=== PATIENT | female | born 1975 | race Caucasian/White ===

== ENCOUNTER 2016-02-19 16:19 | Day surgery (SDC) | payer OTHER ==
[2016-02-19] MEDS ORDERED: EPINEPHrine/PF 1 MG/1 ML (1:1,000) AMPULE SQ PRN (16:35)
[2016-02-19] MEDS ORDERED: OMALIZUMAB 150 MG/VIAL ML SQ ONE (17:00)
[2016-02-19 18:25] VITALS: BP 122/70; PULSE 72; TEMP 98.2
== END 2016-02-19 18:26 | disposition home or self-care (01) ==
LOC: JINFUSION 16:19 → J7W 16:20 → JINFUSION 18:26
PROVIDERS: ATTEND Internal Medicine
PROC: 3E013GC Introduction of Other Therapeutic Substance into Subcutaneous Tissue, Percutaneous Approach (ICD-10-PCS; principal; 2016-02-19)
DX: J45.50 Severe persistent asthma, uncomplicated (principal)
CPT/HCPCS: 96372; J2357

== ENCOUNTER 2016-03-17 16:15 | Day surgery (SDC) | payer OTHER ==
[2016-03-17] MEDS ORDERED: EPINEPHrine/PF 1 MG/1 ML (1:1,000) AMPULE SQ PRN (16:41)
[2016-03-17] MEDS ORDERED: OMALIZUMAB 150 MG/VIAL ML SQ ONE (16:45)
[2016-03-17 20:11] VITALS: BMI 35.9
[2016-03-17 20:12] VITALS: BP 131/86; PULSE 78; TEMP 97.4
== END 2016-03-17 18:28 | disposition home or self-care (01) ==
LOC: JINFUSION 16:15 → J7W 16:17 → JINFUSION 18:28
PROVIDERS: ATTEND Internal Medicine
PROC: 3E013GC Introduction of Other Therapeutic Substance into Subcutaneous Tissue, Percutaneous Approach (ICD-10-PCS; principal; 2016-03-17)
DX: J45.50 Severe persistent asthma, uncomplicated (principal)
CPT/HCPCS: 96372; J2357

== ENCOUNTER 2016-04-18 15:36 | Day surgery (SDC) | payer OTHER ==
[2016-04-18] MEDS ORDERED: EPINEPHrine/PF 1 MG/1 ML (1:1,000) AMPULE SQ PRN (16:32)
[2016-04-18] MEDS ORDERED: OMALIZUMAB 150 MG/VIAL ML SQ ONE (16:40)
[2016-04-18 17:31] VITALS: TEMP 98.6
[2016-04-18 18:18] VITALS: BP 141/74; PULSE 98
== END 2016-04-18 19:12 | disposition home or self-care (01) ==
LOC: JINFUSION 15:36 → J7W 15:39 → JINFUSION 19:12
PROVIDERS: ATTEND Internal Medicine
PROC: 3E013GC Introduction of Other Therapeutic Substance into Subcutaneous Tissue, Percutaneous Approach (ICD-10-PCS; principal; 2016-04-18)
DX: J45.50 Severe persistent asthma, uncomplicated (principal)
CPT/HCPCS: 96372; J2357

== ENCOUNTER 2016-06-11 16:07 | Day surgery (SDC) | payer OTHER ==
[~2016-06-11 16:07] MED LIST: EPINEPHrine/PF 1 MG/1 ML (1:1,000) AMPULE SQ PRN; OMALIZUMAB 150 MG/VIAL ML SQ ONE
[2016-06-11] MEDS ORDERED: EPINEPHrine/PF 1 MG/1 ML (1:1,000) AMPULE SQ PRN (16:28)
[2016-06-11] MEDS ORDERED: OMALIZUMAB 150 MG/VIAL ML SQ ONE (16:30)
[2016-06-11 16:56] VITALS: BP 138/79; PULSE 76; TEMP 98
== END 2016-06-11 18:47 | disposition home or self-care (01) ==
LOC: JINFUSION 16:07 → J7W 16:08 → JINFUSION 18:47
PROVIDERS: ATTEND Internal Medicine
PROC: 3E013GC Introduction of Other Therapeutic Substance into Subcutaneous Tissue, Percutaneous Approach (ICD-10-PCS; principal; 2016-06-11)
DX: J45.50 Severe persistent asthma, uncomplicated (principal)
CPT/HCPCS: 96372; J2357

== ENCOUNTER 2016-07-11 15:24 | Day surgery (SDC) | payer OTHER ==
[2016-07-11] MEDS ORDERED: EPINEPHrine/PF 1 MG/1 ML (1:1,000) AMPULE SQ PRN (15:48)
[2016-07-11] MEDS ORDERED: OMALIZUMAB 150 MG/VIAL ML SQ ONE (16:30)
[2016-07-11 18:38] VITALS: BP 137/85; PULSE 79; TEMP 98.6
== END 2016-07-11 18:37 | disposition home or self-care (01) ==
LOC: JINFUSION 15:24 → J7W 15:40 → JINFUSION 18:37
PROVIDERS: ATTEND Internal Medicine
PROC: 3E013GC Introduction of Other Therapeutic Substance into Subcutaneous Tissue, Percutaneous Approach (ICD-10-PCS; principal; 2016-07-11)
DX: J45.50 Severe persistent asthma, uncomplicated (principal)
CPT/HCPCS: 96372; J2357

== ENCOUNTER 2016-08-27 12:12 | Inpatient (IN) | payer OTHER ==
[2016-08-27] MEDS ORDERED: ALBUTEROL SO4 2.5/IPRATROPIUM 0.5 INH SOL 3 ML VIAL.NEB. NEB ONE ×3 (12:32→13:10)
--- NOTE | 2016-08-27 13:01 | PDOC ---
History of Present Illness - General History Source: Patient Exam Limitations: No Limitations - History of Present Illness Initial Comments: 08/27/16 13:09 The patient is a 40 year old female, with a significant past medical history of asthma, who presents to the emergency department with cough, congestion, chest tightness and SOB for about 1 day. The patient reports having chronic asthma complications. She reports humidity often triggers her asthma. She reports having multiple hospitalizations for her asthma, last admission July 2015. She denies recent fevers, chills, headache or dizziness. She denies recent nausea, vomit, diarrhea or constipation. She denies recent dysuria, frequency, urgency or hematuria. Allergies: NKA Past surgical history: None reported. Social history: Nonsmoker. Denies EtOH use and recreational drug use. Primary Care Physician: <Quique Fletcher - Last Filed: 08/27/16 13:10> - General History Source: Patient Exam Limitations: No Limitations <Hattie Mcmillna - Last Filed: 08/27/16 15:35> - General Chief Complaint: Asthma Stated Complaint: SOB (ASTHMA) Time Seen by Provider: 08/27/16 12:28 Past History <Quique Fletcher - Last Filed: 08/27/16 13:10> - Past Medical History Anemia: No Asthma: Yes Cancer: No Cardiac Disorders: No CVA: No COPD: No CHF: No Dementia: No Diabetes: No GI Disorders: No Disorders: No HTN: No Hypercholesterolemia: Yes Liver Disease: No Seizures: No Thyroid Disease: No - Surgical History Abdominal Surgery: No Appendectomy: Yes Cardiac Surgery: No Cholecystectomy: No Lung Surgery: No Neurologic Surgery: No Orthopedic Surgery: No - Psycho/Social/Smoking Cessation Hx Anxiety: No Suicidal Ideation: No Smoking Status: Yes Smoking History: Never smoked Have you smoked in the past 12 months: Yes Number of Cigarettes Smoked Daily: 1 If you are a former smoker, when did you quit?: 07/2013 Cigars Per Day: 1 'Breaking Loose' booklet given: 07/28/13 Hx Alcohol Use: No Drug/Substance Use Hx: No Substance Use Type: None Hx Substance Use Treatment: No <Hattie Mcmillan - Last Filed: 08/27/16 15:35> - Past Medical History Allergies/Adverse Reactions: Allergies Allergy/AdvReac Type Severity Reaction Status Date / Time shellfish derived Allergy SWELLING, Verified 08/27/16 12:17 DIFFICULTY BREATHING, ITCHING iv contrast Allergy Uncoded 08/27/16 12:17 Home Medications: Ambulatory Orders Budesonide/Formeterol Fumarate [SYMBICORT 160/4.5mcg -] 1 puff IH BID #1 inhaler 02/17/15 Montelukast Na [Singulair -] 10 mg PO HS #30 tablet 02/17/15 Albuterol 0.083% Nebulizer Kelly [Ventolin 0.083% Nebulizer Soln -] 1 neb NEB QID PRN 02/26/15 Albuterol Sulfate Inhaler - [Ventolin Hfa Inhaler -] 2 inh PO Q4H PRN 07/20/15 Tiotropium [place] [Spiriva] 1 inh PO DAILY 07/20/15 Omalizumab [Xolair -] 150 mg SQ Q30D 08/27/16 Review of Systems - Review of Systems Able to Perform ROS?: Yes Comments:: 08/27/16 13:09 GENERAL/CONSTITUTIONAL: No: fever, chills, weakness, loss of appetite. HEAD, EYES, EARS, NOSE AND THROAT: No: change in vision, ear pain, discharge, sore throat, throat swelling. CARDIOVASCULAR: +chest tightness. No: chest pain, lightheadedness, palpitations , syncope RESPIRATORY: +: cough, shortness of breath, No: hemoptysis, stridor. GASTROINTESTINAL: No: nausea, vomiting, diarrhea, abdominal cramping, rectal bleeding, constipation. GENITOURINARY: No: dysuria, hematuria, frequency, urgency, flank pain. MUSCULOSKELETAL: No: back pain, neck pain, joint pain, muscle swelling or pain SKIN : No: lesions, pallor, rash or easy bruising. NEUROLOGIC: No: headache, vertigo, paresthesias, weakness ENDOCRINE: No: unexplained weight gain or loss HEMATOLOGIC/LYMPHATIC: No: anemia, easy bleeding, swelling nodes. <Quique Fletcher - Last Filed: 08/27/16 13:10> *Physical Exam - Vital Signs Last Vital Signs Temp Pulse Resp BP Pulse Ox 98.0 F 85 24 137/71 100 08/27/16 12:14 08/27/16 12:14 08/27/16 12:14 08/27/16 12:14 08/27/16 12:14 - Physical Exam Comments: 08/27/16 13:10 GENERAL: The patient is in no acute distress. HEAD: Normal with no signs of trauma. EYES: PERRLA, EOMI, sclera anicteric, conjunctiva clear. ENT: Ears normal, nares patent, oropharynx clear without exudates. Moist mucous membranes. NECK: Normal range of motion, supple without lymphadenopathy, JVD, or masses. LUNGS: Expiratory wheezes in all lung mir. HEART: Regular rate and rhythm, normal S1 and S2 without murmur, rub or gallop. ABDOMEN: Soft, nontender, normoactive bowel sounds. No guarding, no rebound. No masses palpable. EXTREMITIES: Normal range of motion, no edema. No clubbing or cyanosis. No erythema, or tenderness. NEUROLOGICAL: Cranial nerves II through XII grossly intact. Normal speech. No focal neurological deficits. MUSCULOSKELETAL: Back non-tender to palpation, no CVA tenderness SKIN: Warm, Dry, normal turgor, no rashes or lesions noted. <Quique Fletcher - Last Filed: 08/27/16 13:10> - Vital Signs Last Vital Signs Temp Pulse Resp BP Pulse Ox 98.0 F 85 24 137/71 100 08/27/16 12:14 08/27/16 12:14 08/27/16 12:14 08/27/16 12:14 08/27/16 12:14 <Hattie Mcmillan - Last Filed: 08/27/16 15:35> ED Treatment Course - ADDITIONAL ORDERS Additional order review: Laboratory Results 08/27/16 12:34 Urine HCG, Qual Negative - Medications Given in the ED: ED Medications Discontinued Medications Generic Name Dose Route Start Last Admin Trade Name Freq PRN Reason Stop Dose Admin Albuterol/Ipratropium 1 amp 08/27/16 12:32 08/27/16 12:32 Duoneb - NEB 08/27/16 12:33 1 amp NOW ONE Administration Albuterol/Ipratropium 1 amp 08/27/16 12:53 08/27/16 12:53 Duoneb - NEB 08/27/16 12:54 1 amp NOW ONE Administration <Quique Fletcher - Last Filed: 08/27/16 13:10> - LABORATORY CBC & Chemistry Diagram: 08/27/16 13:40 08/27/16 13:40 - ADDITIONAL ORDERS Additional order review: Laboratory Results 08/27/16 12:34 Urine HCG, Qual Negative - Medications Given in the ED: ED Medications Discontinued Medications Generic Name Dose Route Start Last Admin Trade Name Justin PRN Reason Stop Dose Admin Albuterol/Ipratropium 1 amp 08/27/16 12:32 08/27/16 12:32 Duoneb - NEB 08/27/16 12:33 1 amp NOW ONE Administration Albuterol/Ipratropium 1 amp 08/27/16 12:53 08/27/16 12:53 Duoneb - NEB 08/27/16 12:54 1 amp NOW ONE Administration <Hattie Mcmillan - Last Filed: 08/27/16 15:35> Medical Decision Making - Medical Decision Making 08/27/16 12:57 A portion of this note was documented by scribe services under my direction. I have reviewed the details of the note, within reason, and agree with the documentation with the following case summary and management plan written by me. Nursing documentation reviewed and incorporated into medical decision making 08/27/16 14:01 This is a 40 yo F with a history of chronic persistent asthma, no prior intubations, previously had ER visits/admissions every 2 months She has recently been managed by Dr Prado, started on a cocktail of Advair, Spiriva , Xolair She was well controlled on this medications She states that she was taking a lot of medications and therefore did not want to keep taking them She discontinued her medications She has noticed that she has been increasingly short of breath for the past 2 days The humidity is a trigger for her Prior to today, she has had NO asthma exacerbations in the past 13 months 08/27/16 14:02 Pt was given 3 treatments prior to my evaluation She has now, expiratory wheezing through out all lung mir She states she feels a bit better but is still very tight 08/27/16 14:05 CXR: nml 08/27/16 15:17 Laboratory Tests 08/27/16 08/27/16 08/27/16 12:34 13:40 13:40 WBC 8.8 Hgb 13.8 Hct 40.4 Plt Count 310 BUN 11 D Creatinine 0.8 Urine HCG, Qual Negative 08/27/16 15:18 Call placed to Hospitalist Will place on observation Clinical impression: severe Asthma exacerbation <Hattie Mcmillan - Last Filed: 08/27/16 15:35> *DC/Admit/Observation/Transfer - Attestations Scribe Attestion: 08/27/16 13:10 Documentation prepared by Quique Fletcher, acting as district medical examiner for Hattie Mcmillan MD. <Quique Fletcher - Last Filed: 08/27/16 13:10> - Discharge Dispostion Admit: Yes <Hattie Mcmillan - Last Filed: 08/27/16 15:35> Diagnosis at time of Disposition: Asthma exacerbation Qualifiers: Asthma severity: severe persistent Qualified Code(s): J45.51 - Severe persistent asthma with (acute) exacerbation - Discharge Dispostion Condition at time of disposition: Stable - Referrals Referrals: Rico Maciel MD [Primary Care Provider] -
[2016-08-27] MEDS ORDERED: methylPREDNISolone NA SUCC 125 MG/2 ML VIAL IVPB ONE (13:10)
[2016-08-27] MEDS ORDERED: MAGNESIUM SULF 50% (8.12 MEQ/2 ML-1 GM VIAL) IVPB ONE (13:11)
[2016-08-27] MEDS ORDERED: guaiFENesin/CODEINE 10 ML UNIT-DOSE CUPS PO ONE (13:42)
[2016-08-27 13:43] LABS: BASOPHIL 0.7 % (0-2.0); MCH 30.7 pg (25.7-33.7); MCHC 34.1 g/dl (32.0-36.0); MEAN CELL VOLUME 90.1 fl (80-96); MEAN PLT VOLUME 7.9 fl (7.5-11.1); NEUTROPHILS 60.1 % (42.8-82.8); PLATELET COUNT 310 K/MM3 (134-434); WHITE BLOOD COUNT 8.8 K/mm3 (4.0-10.0)
[2016-08-27] MEDS ORDERED: guaiFENesin/CODEINE 5 ML UNIT-DOSE CUPS PO ONE (13:43)
[2016-08-27 14:15] LABS: ALBUMIN 3.4 g/dl (3.4-5.0); ANION GAP 10 (8-16); BILIRUBIN,TOTAL 0.3 mg/dL (0.2-1.0); CALCIUM 8.8 mg/dL (8.5-10.1); CO2 25 mmol/L (21-32); CREATININE 0.8 mg/dL (0.55-1.02); GLUCOSE,RANDOM 89 mg/dL (74-106); SGOT/AST 13 U/L (15-37); SGPT/ALT 20 U/L (12-78); TOT PROT 6.8 g/dl (6.4-8.2)
[2016-08-27 14:16] LABS: ALK PHOS 71 U/L (45-117)
--- NOTE | 2016-08-27 15:25 | HP ---
CHIEF COMPLAINT: "I have trouble breathing" PCP: Dr Prado HISTORY OF PRESENT ILLNESS: This is a 39-year-old female with a history of asthma (multiple admissions, no history of intubations, followed by Dr. Prado as outpatient) who was last admitted here a year ago for asthma exacerbation, who presents due to SOB, cough, congestion and chest tightness x 2d. Patient states that humidity often triggers her asthma. She did well for a year on her medication regimen but has been noncompliant with it for the past month. She denies recent f/c, h/a, hemoptysis, dizziness, n/v, diarrhea, constipation, dysuria, frequency, urgency or hematuria. ER course was notable for: (1)labs (2)cxr WNL (3)duoneb, robitussin, mag, medrol 125 IV Recent Travel: denies PAST MEDICAL HISTORY: as above PAST SURGICAL HISTORY: appendectomy, c section Social History: lives at home with children Smoking: denies Alcohol: denies Drugs: denies Family History: asthma in grandmother, children Allergies shellfish derived Allergy (Verified 08/27/16 12:17) SWELLING, DIFFICULTY BREATHING, ITCHING iv contrast Allergy (Uncoded 08/27/16 12:17) Magnesioum (pruritus) HOME MEDICATIONS: Home Medications Medication Instructions Recorded Budesonide/Formeterol Fumarate 1 puff IH BID #1 inhaler 02/17/15 [SYMBICORT 160/4.5mcg -] Montelukast Na [Singulair -] 10 mg PO HS #30 tablet 02/17/15 Albuterol 0.083% Nebulizer Kelly 1 neb NEB QID PRN 02/26/15 [Ventolin 0.083% Nebulizer Soln -] Albuterol Sulfate Inhaler - 2 inh PO Q4H PRN 07/20/15 [Ventolin Hfa Inhaler -] Tiotropium [place] [Spiriva] 1 inh PO DAILY 07/20/15 Omalizumab [Xolair -] 150 mg SQ Q30D 08/27/16 REVIEW OF SYSTEMS CONSTITUTIONAL: Absent: fever, chills HEENT: Absent: rhinorrhea, nasal congestion, throat pain CARDIOVASCULAR: Absent: chest pain, syncope, palpitations, peripheral edema RESPIRATORY: Absent: orthopnea, stridor, hemoptysis GASTROINTESTINAL: Absent: abdominal pain, abdominal distension, nausea, vomiting, diarrhea, constipation GENITOURINARY: Absent: dysuria MUSCULOSKELETAL: Absent: back pain, neck pain SKIN: Absent: pallor HEMATOLOGIC/IMMUNOLOGIC: Absent: frequent infections ENDOCRINE: Absent: heat intolerance, cold intolerance NEUROLOGIC: Absent: headache, focal weakness or paresthesias PSYCHIATRIC: Absent: anxiety PHYSICAL EXAMINATION Vital Signs - 24 hr 08/27/16 12:14 Temperature 98.0 F Pulse Rate 85 Respiratory 24 Rate Blood Pressure 137/71 O2 Sat by Pulse 100 Oximetry (%) GENERAL: Awake, alert, and fully oriented, in no acute distress. HEAD: Normal with no signs of trauma. EYES: Pupils equal, round and reactive to light, extraocular movements intact, sclera anicteric, conjunctiva clear. No lid lag. EARS, NOSE, THROAT: Moist mucous membranes. NECK: supple without JVD LUNGS: diffusely severely reduced breath sounds, a little bit of wheezing b/l HEART: Regular rate and rhythm, normal S1 and S2 ABDOMEN: Soft, nontender, not distended, normoactive bowel sounds, no guarding, no rebound, no masses. No hepatomegaly or splenomegaly. MUSCULOSKELETAL: No CVA tenderness. UPPER EXTREMITIES: 2+ pulses, warm, well-perfused. No cyanosis. No clubbing. No peripheral edema. LOWER EXTREMITIES: 2+ pulses, warm, well-perfused. No calf tenderness. No peripheral edema. NEUROLOGICAL: Cranial nerves II-XII intact. Normal speech. strength in extremities 5/5, sensation intact in face and extremities PSYCHIATRIC: Cooperative. Good eye contact. Appropriate mood and affect. SKIN: Warm, dry Laboratory Results - last 24 hr 08/27/16 08/27/16 08/27/16 12:34 13:40 13:40 WBC 8.8 RBC 4.48 Hgb 13.8 Hct 40.4 MCV 90.1 MCH 30.7 MCHC 34.1 RDW 14.0 Plt Count 310 MPV 7.9 Neutrophils % 60.1 D Lymphocytes % 31.5 D Monocytes % 6.7 D Eosinophils % 1.0 D Basophils % 0.7 Sodium 141 Potassium 4.3 Chloride 106 Carbon Dioxide 25 Anion Gap 10 BUN 11 D Creatinine 0.8 Creat Clearance w eGFR > 60 Random Glucose 89 D Calcium 8.8 Magnesium Total Bilirubin 0.3 D AST 13 L ALT 20 Alkaline Phosphatase 71 Total Protein 6.8 Albumin 3.4 Urine HCG, Qual Negative 08/27/16 13:40 WBC RBC Hgb Hct MCV MCH MCHC RDW Plt Count MPV Neutrophils % Lymphocytes % Monocytes % Eosinophils % Basophils % Sodium Potassium Chloride Carbon Dioxide Anion Gap BUN Creatinine Creat Clearance w eGFR Random Glucose Calcium Magnesium 2.1 Total Bilirubin AST ALT Alkaline Phosphatase Total Protein Albumin Urine HCG, Qual ASSESSMENT/PLAN: This is a 39-year-old female with a history of asthma (multiple admissions, no history of intubations, followed by Dr. Prado as outpatient) who was last admitted here a year ago for asthma exacerbation, who presents due to SOB, cough, congestion and chest tightness x 1d. Acute asthma exacerbation -triggered by humidity, no evidence of infectious process -100% O2 on RA -s/p medrol 125 in ED; start medrol 80q8 and taper -Albuterol NEB QID PRN -Duoneb QIDR TODD -Symbicort 160/4.5mcg BID TODD -Singulair 10 mg PO HS TODD -patient due for Zolair injection -Dr Prado consult -monitor peak flow -2L NC PRN for comfort FEN no IVF lytes stable regular diet PPX: diet and early ambulation Dispo: Obs in [facility] Problem List - Problem (1) Asthma exacerbation Code(s): J45.901 - UNSPECIFIED ASTHMA WITH (ACUTE) EXACERBATION Qualifiers: Asthma severity: severe persistent Qualified Code(s): J45.51 - Severe persistent asthma with (acute) exacerbation (2) Shortness of breath Code(s): R06.02 - SHORTNESS OF BREATH Visit type - Emergency Visit Emergency Visit: Yes ED Registration Date: 08/27/16 Care time: The patient presented to the Emergency Department on the above date and was hospitalized for further evaluation of their emergent condition. - New Patient This patient is new to me today: Yes Date on this admission: 08/27/16 - Critical Care Critical Care patient: No
--- NOTE | 2016-08-27 16:15 | HP ---
CHIEF COMPLAINT: shortness of breath and chest tightness x 2 days PCP: Rico Maciel HISTORY OF PRESENT ILLNESS: This is a 40 year old F with PMH asthma (diagnosed in 2002), who presented to the ED for SOB and chest tightness for 2 days. Pt states that it is hard for her to get air in, and that her symptoms are consistent with past asthma exacerbations. She also currently has a dry cough. Her triggers are humidity and cold weather. As per pt, she usually follows with Dr. Prado and takes: Zolair 1x/month, Spiriva, Symbicort, Singulair, and an albuterol inhaler, but has not been compliant over the last month since she has been busy with her children. Her baseline peak flow is 350. She has never been intubated. Denies fever, chills, dysuria, recent URI, sick contacts, or any travel history. ER course was notable for: (1) Solumedrol 125mg IVPB once (2) Duoneb 2 amps total Neb (3) Robitussin 5ml PO (4) CXR- WNL Recent Travel: None PAST MEDICAL HISTORY: asthma (diagnosed in 2002) PAST SURGICAL HISTORY: 3 sections, appendectomy Social History: Smoking: denies Alcohol: denies Drugs: denies Family History: all three children have asthma Allergies shellfish derived Allergy (Verified 08/27/16 12:17) SWELLING, DIFFICULTY BREATHING, ITCHING iv contrast Allergy (Uncoded 08/27/16 12:17) magnesium reaction- itching HOME MEDICATIONS: Home Medications Medication Instructions Recorded Budesonide/Formeterol Fumarate 1 puff IH BID #1 inhaler 02/17/15 [SYMBICORT 160/4.5mcg -] Montelukast Na [Singulair -] 10 mg PO HS #30 tablet 02/17/15 Albuterol 0.083% Nebulizer [place] 1 neb NEB QID PRN 02/26/15 [Ventolin 0.083% Nebulizer Soln -] Albuterol Sulfate Inhaler - 2 inh PO Q4H PRN 07/20/15 [Ventolin Hfa Inhaler -] Tiotropium [place] [Spiriva] 1 inh PO DAILY 07/20/15 Omalizumab [Xolair -] 0 mg SQ Q30D 08/27/16 REVIEW OF SYSTEMS CONSTITUTIONAL: Absent: fever, chills, diaphoresis, generalized weakness, malaise, loss of appetite, weight change HEENT: Absent: rhinorrhea, nasal congestion, throat pain, throat swelling, difficulty swallowing, mouth swelling, ear pain, eye pain, visual changes CARDIOVASCULAR: Absent: chest pain, syncope, palpitations, irregular heart rate, lightheadedness , peripheral edema RESPIRATORY: +dry cough, +SOB, +wheezing, +chest tightness Absent: cough, shortness of breath, dyspnea with exertion, orthopnea, wheezing, stridor, hemoptysis GASTROINTESTINAL: Absent: abdominal pain, abdominal distension, nausea, vomiting, diarrhea, constipation, melena, hematochezia GENITOURINARY: Absent: dysuria, frequency, urgency, hesitancy, hematuria, flank pain, genital pain MUSCULOSKELETAL: Absent: myalgia, arthralgia, joint swelling, back pain, neck pain SKIN: Absent: rash, itching, pallor HEMATOLOGIC/IMMUNOLOGIC: Absent: easy bleeding, easy bruising, lymphadenopathy, frequent infections ENDOCRINE: Absent: unexplained weight gain, unexplained weight loss, heat intolerance, cold intolerance NEUROLOGIC: Absent: headache, focal weakness or paresthesias, dizziness, unsteady gait, seizure, mental status changes, bladder or bowel incontinence PSYCHIATRIC: Absent: anxiety, depression, suicidal or homicidal ideation, hallucinations. PHYSICAL EXAMINATION GENERAL: Drowsy (had just received benadryl after allergic reaction to Mg) female, lying down, in mild distress HEAD: Normal with no signs of trauma. EYES: Pupils equal, round and reactive to light, extraocular movements intact, sclera anicteric, conjunctiva clear. EARS, NOSE, THROAT: oropharynx clear without exudates. Moist mucous membranes. NECK: Normal range of motion, supple without lymphadenopathy, JVD LUNGS: mild wheezing heard b/l posteriorly (had already received solumedrol) HEART: Regular rate and rhythm, normal S1 and S2 without murmur, rub or gallop. ABDOMEN: Soft, nontender, not distended, normoactive bowel sounds, no guarding, no rebound, no masses. MUSCULOSKELETAL: Normal range of motion at all joints. No bony deformities or tenderness. No CVA tenderness. UPPER EXTREMITIES: 2+ radial pulses, warm, well-perfused. No cyanosis. No clubbing. No peripheral edema. LOWER EXTREMITIES: 2+ posterior tibial pulses, warm, well-perfused. No calf tenderness. No peripheral edema. NEUROLOGICAL: Cranial nerves II-XII intact ASSESSMENT/PLAN: This is a 40 year old F with PMH asthma (diagnosed in 2002), who presented to the ED for SOB and chest tightness for 2 days. Pt admitted to obs for acute asthma exacerbation. 1. Acute asthma exacerbation -triggered by humidity -Oxygen saturation: 100% on room air - Begin solumedrol 80mg q8 and taper to oral tomorrow -Albuterol NEB QID PRN -Duoneb QIDR TODD -Symbicort 160/4.5mcg BID TODD -Singulair 10 mg PO HS TODD -patient due for Zolair injection (receives 1x/month) -Consult Dr. Prado -Monitor peak flow (baseline 350) -2L NC PRN 2. DVT prophylaxis -Early ambulation FEN -no fluids needed -BMP- WNL -Regular diet Disposition -Observation Visit type - Emergency Visit Emergency Visit: Yes ED Registration Date: 08/27/16 Care time: The patient presented to the Emergency Department on the above date and was hospitalized for further evaluation of their emergent condition. - New Patient This patient is new to me today: Yes Date on this admission: 08/27/16 - Critical Care Critical Care patient: No
--- NOTE | 2016-08-27 16:17 | PN ---
Teaching Attending Note Name of Resident: Sandra Tang ATTENDING PHYSICIAN STATEMENT I saw and evaluated the patient. I reviewed the resident's note and discussed the case with the resident. I agree with the resident's findings and plan as documented. SUBJECTIVE: 40 year old female with history of persistent asthma presents today c/o 2 day history of progressively worsening SOB and cough. She used nebulizers but felt no improvement . Denies fever or sick contacts. Denies chest pain PMH Asthma PSx C SEction ALL shellfish/contrast Home Medication List Medication Instructions Recorded Confirmed Type Albuterol 0.083% Nebulizer [place] 1 neb NEB QID PRN 02/26/15 08/27/16 History [Ventolin 0.083% Nebulizer Soln -] Albuterol Sulfate Inhaler - 2 inh PO Q4H PRN 07/20/15 08/27/16 History [Ventolin Hfa Inhaler -] Tiotropium [place] [Spiriva] 1 inh PO DAILY 07/20/15 08/27/16 History Omalizumab [Xolair -] 0 mg SQ Q30D 08/27/16 08/27/16 History OBJECTIVE: Vital Signs Temperature 98.0 F 08/27/16 12:14 Pulse Rate 85 08/27/16 12:14 Respiratory Rate 24 08/27/16 12:14 Blood Pressure 137/71 08/27/16 12:14 O2 Sat by Pulse Oximetry (%) 100 08/27/16 12:14 GENERAL: Awake, alert, and fully oriented, in no acute distress. HEAD: Normal with no signs of trauma. EYES: Pupils equal, round and reactive to light, extraocular movements intact, sclera anicteric, conjunctiva clear. No lid lag. EARS, NOSE, THROAT: Ears normal, nares patent, oropharynx clear without exudates. Moist mucous membranes. NECK: Normal range of motion, supple without lymphadenopathy, JVD, or masses. LUNGS:b/l wheezing HEART: Regular rate and rhythm, normal S1 and S2 without murmur, rub or gallop. ABDOMEN: Soft, nontender, not distended, normoactive bowel sounds, no guarding, no rebound, no masses. No hepatomegaly or splenomegaly. MUSCULOSKELETAL: Normal range of motion at all joints. No bony deformities or tenderness. No CVA tenderness. UPPER EXTREMITIES: 2+ pulses, warm, well-perfused. No cyanosis. No clubbing. No peripheral edema. LOWER EXTREMITIES: 2+ pulses, warm, well-perfused. No calf tenderness. No peripheral edema. NEUROLOGICAL: Cranial nerves II-XII intact. Normal speech. Normal gait. PSYCHIATRIC: Cooperative. Good eye contact. Appropriate mood and affect. SKIN: Warm, dry, normal turgor, no rashes or lesions noted, normal capillary refill CBC, BMP 08/27/16 13:40 08/27/16 13:40 CXR - no acute infiltrates ASSESSMENT AND PLAN: 1. Acute respiratory failure due to asthma exacerbation - failure of outpatient therapy with nebulizers, no significant improvement after treatment in ED - nebulizers around the clock - High dose IV steroids - O2 monitoring and supplementation - peak flow daily - pulmonary evaluation - reinstate home meds
[2016-08-27 16:43] VITALS: BMI 33.5
[2016-08-27] MEDS: ALBUTEROL SO4 2.5/IPRATROPIUM 0.5 INH SOL 3 ML VIAL.NEB. NEB SCH ×2 (18:05→23:12)
--- NOTE | 2016-08-27 18:17 | CON.PULM ---
Consult Consult Specialty:: PULMONARY Referred by:: Hospitalist Reason for Consultation:: acute asthma exacerbation - History of Present Illness Chief Complaint: shortness of breath History of Present Illness: Pt seen earlier in the day in the ER. She is a 40 year old female with h/o asthma who presents with worsening shortness of breath x 1 day. Reports chest tightness, coughing and wheezing. No fevers, chills or sweats. No chest pain or palpitations. She was formerly a severe persistent asthmatic requiring chronic steroids and theophylline but was started on Xolair last year for allergic asthma with significant improvement. Improved to the point where she self d/c'd the rest of her inhalers and medications. She did miss her July dose of Xolair due to scheduling issues. She attributes the exacerbation to the hot humid weather which is one of her triggers. No sick contacts or allergies. She has a strong family history of asthma and she still smokes occasionally. - History Source History Provided By: Patient, Medical Record Limitations to Obtaining History: No Limitations - Past Medical History Cardio/Vascular: Yes: Hyperlipdemia Pulmonary: Yes: Asthma. 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 History of Recent Travel: No Home Medications - Allergies Allergies/Adverse Reactions: Allergies Allergy/AdvReac Type Severity Reaction Status Date / Time shellfish derived Allergy SWELLING, Verified 08/27/16 12:17 DIFFICULTY BREATHING, ITCHING iv contrast Allergy Uncoded 08/27/16 12:17 - Home Medications Home Medications: Ambulatory Orders Budesonide/Formeterol Fumarate [SYMBICORT 160/4.5mcg -] 1 puff IH BID #1 inhaler 02/17/15 Montelukast Na [Singulair -] 10 mg PO HS #30 tablet 02/17/15 Albuterol 0.083% Nebulizer Kelly [Ventolin 0.083% Nebulizer Soln -] 1 neb NEB QID PRN 02/26/15 Albuterol Sulfate Inhaler - [Ventolin Hfa Inhaler -] 2 inh PO Q4H PRN 07/20/15 Tiotropium [place] [Spiriva] 1 inh PO DAILY 07/20/15 Omalizumab [Xolair -] 0 mg SQ Q30D 08/27/16 Family Disease History - Family Disease History Family Disease History: Respiratory: Son (asthma), Daughter (asthma), Other: Father (HTN) Review of Systems - Review of Systems Constitutional: reports: Fever. denies: Chills Eyes: denies: Double Vision, Recent Change in Vision HENT: denies: Nasal Congestion, Throat Pain, Toothache Neck: denies: Stiffness, Tenderness Cardiovascular: reports: Shortness of Breath. denies: Chest Pain, Edema, Palpitations Respiratory: reports: Cough, Exercise Intolerance, SOB on Exertion, Wheezing. denies: Hemoptysis Gastrointestinal: denies: Abdominal Pain, Nausea, Vomiting Genitourinary: denies: Dysuria, Hematuria Neurological: denies: Dizziness, Headache Endocrine: denies: Unexplained Weight Gain, Unexplained Weight Loss Physical Exam Vital Sings: Vital Signs Temperature 98.2 F 08/27/16 17:03 Pulse Rate 81 08/27/16 17:35 Respiratory Rate 22 08/27/16 17:03 Blood Pressure 117/43 08/27/16 17:03 O2 Sat by Pulse Oximetry (%) 98 08/27/16 17:35 Constitutional: Yes: Anxious, Mild Distress Eyes: Yes: Conjunctiva Clear, EOM Intact HENT: Yes: Atraumatic, Normocephalic Neck: Yes: Supple, Trachea Midline Cardiovascular: Yes: Regular Rate and Rhythm Respiratory: Yes: Diminished (distant breath sounds), Poor Air Entry, Rhonchi, Wheezes ...Clubbing: No Gastrointestinal: Yes: Normal Bowel Sounds, Soft. No: Tenderness Edema: No Peripheral Pulses WNL: Yes Neurological: Yes: Alert, Oriented Imaging - Results Chest X-ray: Report Reviewed, Image Reviewed (no infiltrates) Problem List - Problems (1) Asthma exacerbation Code(s): J45.901 - UNSPECIFIED ASTHMA WITH (ACUTE) EXACERBATION Qualifiers: Asthma severity: severe persistent Qualified Code(s): J45.51 - Severe persistent asthma with (acute) exacerbation Assessment/Plan Acute Asthma Exacerbation - agree with medrol - can likely taper dose in AM - duonebs standing with prn albuterol - singulair - monitor peak flow - will check office records for best peak flow - O2 as needed - if clinically improving tomorrow with improved peak flow, will consider changing steroids to PO as she has an appointment to see me on 08/29 in the office - encouraged compliance with her daily maintenance inhalers even when she is asymptomatic - instructed her to resume her monthly xolair injections as she has had a good response - DVT prophylaxis Thank you for this consult Fernando Prado MD
[2016-08-27] MEDS: methylPREDNISolone NA SUCC 125 MG/2 ML VIAL IVPB SCH (20:26)
[2016-08-27] MEDS: BUDESONIDE/FORMETEROL FUMARATE 160/4.5 mcg INHALER IH SCH (21:27)
[2016-08-27] MEDS: MONTELUKAST NA 10 MG TABLET PO SCH (21:28)
[2016-08-28] MEDS: methylPREDNISolone NA SUCC 125 MG/2 ML VIAL IVPB SCH ×3 (01:32→17:45)
[2016-08-28] MEDS: ALBUTEROL SO4 2.5/IPRATROPIUM 0.5 INH SOL 3 ML VIAL.NEB. NEB SCH ×4 (06:14→23:21)
[2016-08-28 06:59] LABS: BASOPHIL 0.1 % (0-2.0); MCH 29.7 pg (25.7-33.7); MCHC 32.9 g/dl (32.0-36.0); MEAN CELL VOLUME 90.2 fl (80-96); MEAN PLT VOLUME 7.9 fl (7.5-11.1); NEUTROPHILS 89.2 % (42.8-82.8); PLATELET COUNT 331 K/MM3 (134-434); RDW 14.2 % (11.6-15.6); WHITE BLOOD COUNT 10.9 K/mm3 (4.0-10.0)
[2016-08-28] MEDS ORDERED: ACETAMINOPHEN 325 MG TABLET (FP) PO ONE ×2 (07:30→20:43)
[2016-08-28] MEDS: BUDESONIDE/FORMETEROL FUMARATE 160/4.5 mcg INHALER IH SCH ×2 (09:45→21:37)
[2016-08-28] MEDS ORDERED: PT OWN MED DRAWER 7, Y5N ONE (09:56)
[2016-08-28] MEDS: ALBUTEROL SO4 0.083% IH SOL 2.5 MG/3 ML VIAL.NEB. NEB PRN ×2 (10:20→10:41)
--- NOTE | 2016-08-28 10:53 | PN ---
Physical Exam: SUBJECTIVE: Patient seen and examined at bedside. No acute events overnight. Patient states that her cough today is productive and that this is classic for her asthma attacks. She still has chest tightness. Peak flow 150 this morning. ( 350 baseline) Denies fever, chills, chest pain, abdominal pain. OBJECTIVE: Vital Signs Period Temp Pulse Resp BP Sys/Avelar Pulse Ox Last 24 Hr 98.2 F-98.4 F 68-81 18-22 112-130/43-73 96-100 GENERAL: The patient is awake, alert, and fully oriented HEAD: Normal with no signs of trauma. EYES: PERRL, extraocular movements intact, sclera anicteric, conjunctiva clear. NECK: Trachea midline, supple. LUNGS: wheezing, restricted breathing HEART: Regular rate and rhythm, S1, S2 without murmur, rub or gallop. ABDOMEN: Soft, nontender, nondistended, normoactive bowel sounds, no guarding, no rebound EXTREMITIES: 2+ posterior tibial pulses, warm, well-perfused, no edema. NEUROLOGICAL: Cranial nerves II through XII grossly intact. Laboratory Results - last 24 hr 08/28/16 05:45 WBC 10.9 H RBC 4.79 Hgb 14.2 Hct 43.2 MCV 90.2 MCH 29.7 MCHC 32.9 RDW 14.2 Plt Count 331 MPV 7.9 Neutrophils % 89.2 H D Lymphocytes % 10.0 D Monocytes % 0.7 L D Eosinophils % 0.0 D Basophils % 0.1 Active Medications Generic Name Dose Route Start Last Admin Trade Name Freq PRN Reason Stop Dose Admin Albuterol Sulfate 1 amp 08/27/16 16:42 08/28/16 10:20 Ventolin 0.083% Nebulizer Soln - NEB 1 amp Q4H PRN Administration SHORT OF BREATH/WHEEZING Albuterol/Ipratropium 1 amp 08/27/16 18:00 08/28/16 06:14 Duoneb - NEB 1 amp QIDR TODD Administration Budesonide/Formoterol Fumarate 1 puff 08/27/16 22:00 08/28/16 09:45 Symbicort 160/4.5mcg - IH 1 puff BID TODD Administration Methylprednisolone Sodium Succinate 80 mg 08/27/16 20:00 08/28/16 09:47 Solu-Medrol - IVPB 80 mg Q8H-IV TODD Administration Montelukast Sodium 10 mg 08/27/16 22:00 08/27/16 21:28 Singulair - PO 10 mg HS TODD Administration ASSESSMENT/PLAN: 40 year old F with PMH asthma (diagnosed in 2002), who presented to the ED for SOB and chest tightness for 2 days. Pt admitted to observation for acute asthma exacerbation. 1. Acute Asthma Exacerbation - solumedrol changed to 40mg q8 IV - duonebs standing with PRN albuterol - singulair - monitor peak flow - O2 as needed From Dr. Prado: - when ready for discharge, can discharge on symbicort 160/4.5mcg 2 puffs BID and singulair with prednisone taper starting at 60mg daily - resume Xolair as outpt - DVT prophylaxis - she will reschedule her appointment originally scheduled for tomorrow - if clinically improved with improved peak flow, will consider changing steroids to PO 2. DVT prophylaxis -early ambulation Visit type - Emergency Visit Emergency Visit: No - New Patient This patient is new to me today: No - Critical Care Critical Care patient: No
--- NOTE | 2016-08-28 11:30 | PN ---
Teaching Attending Note Name of Resident: Sandra Tang ATTENDING PHYSICIAN STATEMENT I saw and evaluated the patient. I reviewed the resident's note and discussed the case with the resident. I agree with the resident's findings and plan as documented. SUBJECTIVE:c/o SOB , productive cough OBJECTIVE: Vital Signs Temperature 98.3 F 08/28/16 06:00 Pulse Rate 74 08/28/16 06:00 Respiratory Rate 18 08/28/16 06:00 Blood Pressure 130/73 08/28/16 06:00 O2 Sat by Pulse Oximetry (%) 97 08/28/16 05:24 Lungs : Air entry improved, wheezing less , no ronchi ABD soft NT EXT no edema CBC, BMP 08/28/16 05:45 08/27/16 13:40 Peak Flow this AM is 150 / Baseline 350 ASSESSMENT AND PLAN: 1. Acute asthma exacerbation - improving however peak flow still < 50 % . Remains symptomatic - c/w solumedrol with plan to change to PO tomorrow - Peak flow daily -Nebs around the clock - O2 - monthly dose of omalizumab to be arranged as OP - GI PPX Dispo : if peak flow improves tomorrow may transition to oral steroids and plan for discharge
--- NOTE | 2016-08-28 12:13 | PN ---
Progress Note (short form) - Note Progress Note: PULMONARY Feels better but still with chest tightness, nonproductive cough. Peak flow done at bedside 150. Last Vital Signs Temp Pulse Resp BP Pulse Ox 98.3 F 74 18 130/73 97 08/28/16 06:00 08/28/16 06:00 08/28/16 06:00 08/28/16 06:00 08/28/16 05:24 Gen: less tachypneic Heart: RRR Lung: slightly improved air entry, less wheezing Abd: soft, nontender Ext: no edema CBC, BMP 08/28/16 05:45 08/27/16 13:40 Active Medications Albuterol Sulfate (Ventolin 0.083% Nebulizer Soln -) 1 amp NEB Q4H PRN PRN Reason: SHORT OF BREATH/WHEEZING Last Admin: 08/28/16 10:20 Dose: 1 amp Albuterol/Ipratropium (Duoneb -) 1 amp NEB QIDR TODD Last Admin: 08/28/16 06:14 Dose: 1 amp Budesonide/Formoterol Fumarate (Symbicort 160/4.5mcg -) 1 puff IH BID [facility] Last Admin: 08/28/16 09:45 Dose: 1 puff Methylprednisolone Sodium Succinate (Solu-Medrol -) 80 mg IVPB Q8H-IV TODD Last Admin: 08/28/16 09:47 Dose: 80 mg Montelukast Sodium (Singulair -) 10 mg PO HS [facility] Last Admin: 08/27/16 21:28 Dose: 10 mg A/P Acute Asthma Exacerbation - continue medrol, will decrease to 40mg q8h - duonebs standing with prn albuterol - singulair - monitor peak flow - O2 as needed - when ready for discharge, can discharge on symbicort 160/4.5mcg 2 puffs BID and singulair with prednisone taper starting at 60mg daily - resume xolair as outpt - DVT prophylaxis - she will reschedule her appointment originally scheduled for tomorrow Problem List - Problems (1) Asthma exacerbation Code(s): J45.901 - UNSPECIFIED ASTHMA WITH (ACUTE) EXACERBATION Qualifiers: Asthma severity: severe persistent Qualified Code(s): J45.51 - Severe persistent asthma with (acute) exacerbation
[2016-08-28] MEDS ORDERED: IBUPROFEN 400 MG TABLET (FP) PO ONE ×2 (17:20→21:09)
[2016-08-28] MEDS: guaiFENesin 200 MG/10 ML 10 ML UNIT-DOSE CUPS PO PRN (17:44)
[2016-08-28] MEDS ORDERED: diphenhydrAMINE HCL 25 MG CAPSULE (FP) PO ONE ×2 (20:42→21:12)
[2016-08-28] MEDS: MONTELUKAST NA 10 MG TABLET PO SCH (21:34)
[2016-08-29] MEDS ORDERED: IBUPROFEN 400 MG TABLET (FP) PO ONE (00:29)
[2016-08-29] MEDS ORDERED: PANTOPRAZOLE 40 MG TABLET (FP) PO ONE (00:33)
[2016-08-29] MEDS: methylPREDNISolone NA SUCC 125 MG/2 ML VIAL IVPB SCH ×2 (01:30→11:06)
[2016-08-29] MEDS: ALBUTEROL SO4 2.5/IPRATROPIUM 0.5 INH SOL 3 ML VIAL.NEB. NEB SCH ×2 (06:24→12:05)
[2016-08-29] MEDS ORDERED: IBUPROFEN 600 MG TABLET (FP) PO ONE (07:30)
[2016-08-29] MEDS ORDERED: PANTOPRAZOLE 40 MG TABLET (FP) PO SCH (10:00)
--- NOTE | 2016-08-29 10:57 | PN ---
Teaching Attending Note Name of Resident: Sandra Tang ATTENDING PHYSICIAN STATEMENT I saw and evaluated the patient. I reviewed the resident's note and discussed the case with the resident. I agree with the resident's findings and plan as documented. SUBJECTIVE: reports improvement in SOB , c/o dry non productive cough OBJECTIVE: Vital Signs Temperature 98.3 F 08/29/16 07:58 Pulse Rate 77 08/29/16 10:07 Respiratory Rate 20 08/29/16 10:07 Blood Pressure 146/84 08/29/16 10:07 O2 Sat by Pulse Oximetry (%) 98 08/28/16 22:00 HEENT PERRL no JVD, No scleral icterus RS - no wheezing no ronchi ABD soft , NT , BS are positive EXT no edema CBC, BMP 08/28/16 05:45 08/27/16 13:40 ASSESSMENT AND PLAN: 1. Acute asthma exacerbation - improving however peak flow still < 50 % . Improved. May d/c today with oral steroids taper starting 60mg daily . Re instate home meds Follow up with pulmonary D/C home
[2016-08-29] MEDS ORDERED: PT OWN MED DRAWER 7, Y5N ONE (11:04)
[2016-08-29] MEDS: BUDESONIDE/FORMETEROL FUMARATE 160/4.5 mcg INHALER IH SCH (11:06)
[2016-08-29] MEDS ORDERED: ALBUTEROL SO4 0.083% IH SOL 2.5 MG/3 ML VIAL.NEB. NEB ONE (11:29)
--- NOTE | 2016-08-29 12:01 | PN ---
Progress Note, Physician History of Present Illness: pulmonary alert,still dyspneic,+ cough - Current Medication List Current Medications: Active Medications Albuterol Sulfate (Ventolin 0.083% Nebulizer Soln -) 1 amp NEB Q4H PRN PRN Reason: SHORT OF BREATH/WHEEZING Last Admin: 08/28/16 10:20 Dose: 1 amp Albuterol Sulfate (Ventolin 0.083% Nebulizer Soln -) 1 amp NEB ONCE ONE Stop: 08/29/16 11:30 Albuterol/Ipratropium (Duoneb -) 1 amp NEB QIDR TODD Last Admin: 08/29/16 06:24 Dose: 1 amp Budesonide/Formoterol Fumarate (Symbicort 160/4.5mcg -) 1 puff IH BID TODD Last Admin: 08/29/16 11:06 Dose: 1 puff Guaifenesin (Robitussin -) 10 ml PO Q4H PRN PRN Reason: ASTHMA Last Admin: 08/28/16 17:44 Dose: 10 ml Methylprednisolone Sodium Succinate (Solu-Medrol -) 40 mg IVPB Q8H-IV TODD Last Admin: 08/29/16 11:06 Dose: 40 mg Montelukast Sodium (Singulair -) 10 mg PO HS [facility] Last Admin: 08/28/16 21:34 Dose: 10 mg Pantoprazole Sodium (Protonix -) 40 mg PO DAILY [facility] Last Admin: 08/29/16 11:07 Dose: 40 mg - Objective Vital Signs: Vital Signs Temperature 98.3 F 08/29/16 07:58 Pulse Rate 77 08/29/16 10:07 Respiratory Rate 20 08/29/16 10:07 Blood Pressure 146/84 08/29/16 10:07 O2 Sat by Pulse Oximetry (%) 98 08/28/16 22:00 Constitutional: Yes: Well Nourished, Calm Eyes: Yes: WNL HENT: Yes: WNL Neck: Yes: WNL Cardiovascular: Yes: Regular Rate and Rhythm, S1, S2 Respiratory: Yes: Wheezes (dipti wheezes) Gastrointestinal: Yes: Normal Bowel Sounds, Soft Extremities: Yes: WNL Edema: No Assessment/Plan A/P Acute Asthma Exacerbation - continue medrol 40mg q8h - duonebs standing with prn albuterol - singulair - monitor peak flow - O2 as needed - can discharge on symbicort 160/4.5mcg 2 puffs BID - resume xolair as outpt - DVT prophylaxis DR NICHOLAS Problem List - Problems (1) Asthma exacerbation Code(s): J45.901 - UNSPECIFIED ASTHMA WITH (ACUTE) EXACERBATION Qualifiers: Asthma severity: severe persistent Qualified Code(s): J45.51 - Severe persistent asthma with (acute) exacerbation
[2016-08-29] MEDS: guaiFENesin 200 MG/10 ML 10 ML UNIT-DOSE CUPS PO PRN ×2 (12:11→16:30)
[2016-08-29 15:01] VITALS: BP 125/76; PULSE 89; TEMP 98.2
--- NOTE | 2016-08-29 20:21 | DS ---
Physical Exam: SUBJECTIVE: Patient seen and examined at bedside. No acute events overnight. Pt states that cough has improved compared to yesterday and has slight headache. Denies fever, chills, chest or abdominal pain. OBJECTIVE: Vital Signs Period Temp Pulse Resp BP Sys/Avelar Pulse Ox Last 24 Hr 97.9 F-98.3 F 77-98 18-24 120-146/74-84 98-100 PHYSICAL EXAM GENERAL: The patient is awake, alert, and fully oriented, in no acute distress. HEAD: Normal with no signs of trauma. EYES: PERRL, extraocular movements intact, sclera anicteric, conjunctiva clear. ENT: Ears normal, nares patent, oropharynx clear without exudates, moist mucous membranes. NECK: Trachea midline, supple. LUNGS: mild wheezing heard bilaterally, much improved from yesterday HEART: Regular rate and rhythm, S1, S2 without murmur, rub or gallop. ABDOMEN: Soft, nontender, nondistended, normoactive bowel sounds, no guarding, no rebound EXTREMITIES: 2+ posterior tibial pulses, warm, well-perfused, no edema. NEUROLOGICAL: Cranial nerves II through XII grossly intact. Normal speech, gait not observed. LABS/VITALS TREND Laboratory Tests 08/27/16 08/27/16 08/28/16 13:40 13:40 05:45 WBC 8.8 10.9 H Hgb 13.8 14.2 Hct 40.4 43.2 Plt Count 310 331 Sodium 141 Potassium 4.3 Chloride 106 Carbon Dioxide 25 Vitals trend 08/28/16 08/28/16 08/28/16 14:42 18:29 22:00 Temperature 98.4 F 98.2 F 98.1 F Pulse Rate 99 H 91 H 80 Blood Pressure 08/29/16 08/29/16 08/29/16 02:00 06:00 07:58 Temperature 97.9 F 98.3 F 98.3 F Pulse Rate 86 98 H 96 H Blood Pressure 120/74 08/29/16 08/29/16 10:07 14:59 Temperature 98.2 F Pulse Rate 89 Blood Pressure 146/84 125/76 HOSPITAL COURSE: Date of Admission:08/28/16 Date of Discharge: 08/29/16 Admit diagnosis: Acute asthma exacerbation Pre-admission course This is a 40 year old F with PMH asthma (diagnosed in 2002), who presented to the ED for SOB and chest tightness for 2 days. Pt states that it is hard for her to get air in, and that her symptoms are consistent with past asthma exacerbations. She also currently has a dry cough. Her triggers are humidity and cold weather. As per pt, she usually follows with Dr. Prado and takes: Zolair 1x/month, Spiriva, Symbicort, Singulair, and an albuterol inhaler, but has not been compliant over the last month since she has been busy with her children. Patient's peak flow on admission: 150, baseline:350. Has never been intubated. 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 Prado was consulted. She was started on solumedrol 80mg q8, duonebs, Singulair, Symbicort, and Robitussin to suppress her cough. Her headaches were also addressed with oral Tylenol and Motrin. Once her symptoms began to resolve, she began a solumedrol taper to prednisone, which she will be on over the next 2 weeks post-discharge. She was also counseled on the importance of taking her medication even when her symptoms are improved, and will see as outpatient. She will recontinue her monthly Xolair injections as outpatient. On discharge, patient's peak flow was 375, much improved from 150 on admission. Minutes to complete discharge: 32 Discharge Summary Reason For Visit: ASTHMA Current Active Problems Asthma exacerbation (Acute) Condition: Stable - Instructions Diet, Activity, Other Instructions: You were recently hospitalized for worsening asthma. Please take the following medications: -Oral Prednisone taper for 2 weeks (starting with 50 mg two times a day 08/30-, 40 mg two times a day for three days (09/02-09/04), 30 mg two times a day for 3 days (09/05-09/07), and 10mg twice a day for the last three days (09/08-09/10) -Robitussin 10mg as needed -Singulair 10 mg tablet -Symbicort 160/4.5mcg- 2 puff inhaled twice daily -Protonix 40mg orally daily for 2 weeks Please follow-up with your tree trimming supervisor, Dr. Prado on Thursday and an appointment in his office for xoliar on 09/01/16 at 3pm. You can discuss your plan to receive your Xolair injection with him as well. We also recommend that you take your medications even if you feel better. If you feel short of breath, have chest pain, or any new symptoms, please come back to the hospital. Referrals: Rico Maciel MD [Primary Care Provider] - Fernando Prado MD, MD [Staff Physician] - Disposition: HOME - Home Medications Comprehensive Discharge Medication List: Ambulatory Orders Albuterol 0.083% Nebulizer Kelly [Ventolin 0.083% Nebulizer Soln -] 1 neb NEB QID PRN 02/26/15 Albuterol Sulfate Inhaler - [Ventolin HFA Inhaler -] 2 inh PO Q4H PRN 07/20/15 Tiotropium [place] [Spiriva] 1 inh PO DAILY 07/20/15 Omalizumab [Xolair -] 0 mg SQ Q30D 08/27/16 Albuterol 2.5/Ipratropium 0.5 [Duoneb -] 1 amp NEB QIDR #28 amp 08/29/16 Budesonide/Formeterol Fumarate [SYMBICORT 160/4.5mcg -] 2 puff IH BID #1 inhaler 08/29/16 Guaifenesin [Robitussin -] 10 ml PO Q4H PRN #420 ml 08/29/16 Montelukast Na [Singulair -] 10 mg PO HS #30 tablet 08/29/16 Pantoprazole Sodium [Protonix -] 40 mg PO DAILY #14 tablet 08/29/16 Prednisone 10 mg PO BID #90 tablet 08/29/16 This patient is new to me today: No Emergency Visit: No Critical Care patient: No - Discharge Referral Referred to [facility] No
== END 2016-08-29 17:25 | disposition home or self-care (01) | DRG 202 ==
LOC: JER 12:12 → UNDOADMOB 15:23 → INTOOBSV 15:23 → JERBED 15:23 → J5S 16:50 → JERBED 16:50 → J5S 16:50 → OBSVTOIN 08-28 18:26
PROVIDERS: ADMIT Internal Medicine; ATTEND Internal Medicine
PROC: 3E0F7GC Introduction of Other Therapeutic Substance into Respiratory Tract, Via Natural or Artificial Opening (ICD-10-PCS; principal; 2016-08-27)
DX: J45.51 Severe persistent asthma with (acute) exacerbation (principal); J96.00 Acute respiratory failure, unspecified whether with hypoxia or hypercapnia; Z72.0 Tobacco use
CPT/HCPCS: 36415; 71010-TC; 80053; 83735; 84703; 85025; 94010; 94150; 94640; 99284-25; G0378

== ENCOUNTER 2016-09-02 12:48 | Day surgery (SDC) | payer OTHER ==
[2016-09-02] MEDS ORDERED: ACETAMINOPHEN 325 MG TABLET (FP) ONE (13:09)
[2016-09-02] MEDS ORDERED: EPINEPHrine 1:1,000 0.3 MG/0.3 ML SYR IM PRN (14:25)
[2016-09-02] MEDS ORDERED: OMALIZUMAB 150 MG/VIAL ML SQ ONE (14:30)
[2016-09-02] MEDS ORDERED: diphenhydrAMINE HCL 25 MG CAPSULE (FP) PO ONE (16:05)
[2016-09-02] MEDS ORDERED: diphenhydrAMINE HCL 50 MG CAPSULE PO ONE (16:15)
[2016-09-02 18:53] VITALS: TEMP 98.5
[2016-09-02 18:59] VITALS: BP 122/72; PULSE 79
== END 2016-09-02 16:15 | disposition home or self-care (01) ==
LOC: JINFUSION 12:48 → J7W 12:49 → JINFUSION 16:15
PROVIDERS: ATTEND Internal Medicine
PROC: 3E013GC Introduction of Other Therapeutic Substance into Subcutaneous Tissue, Percutaneous Approach (ICD-10-PCS; principal; 2016-09-02)
DX: J45.50 Severe persistent asthma, uncomplicated (principal)
CPT/HCPCS: 96372; J2357

== ENCOUNTER 2016-10-17 12:29 | Day surgery (SDC) | payer OTHER ==
[2016-10-17] MEDS ORDERED: EPINEPHrine/PF 1 MG/1 ML (1:1,000) AMPULE SQ PRN (13:22)
[2016-10-17] MEDS ORDERED: OMALIZUMAB 150 MG/VIAL ML SQ ONE (13:30)
[2016-10-17 16:46] VITALS: BP 139/86; PULSE 72; TEMP 98.3
== END 2016-10-17 16:50 | disposition home or self-care (01) ==
LOC: JINFUSION 12:29 → J7W 12:31 → JINFUSION 16:50
PROVIDERS: ATTEND Internal Medicine
PROC: 3E013GC Introduction of Other Therapeutic Substance into Subcutaneous Tissue, Percutaneous Approach (ICD-10-PCS; principal; 2016-10-17)
DX: J45.50 Severe persistent asthma, uncomplicated (principal)
CPT/HCPCS: 96372; J2357

== ENCOUNTER 2016-11-20 16:24 | Day surgery (SDC) | payer OTHER ==
[2016-11-20] MEDS ORDERED: EPINEPHrine/PF 1 MG/1 ML (1:1,000) AMPULE SQ PRN (17:36)
[2016-11-20] MEDS ORDERED: OMALIZUMAB 150 MG/VIAL ML SQ ONE (17:45)
[2016-11-20 18:53] VITALS: BP 134/89; PULSE 79; TEMP 97.9
== END 2016-11-20 20:00 | disposition home or self-care (01) ==
LOC: JINFUSION 16:24 → J7W 16:26 → JINFUSION 20:00
PROVIDERS: ATTEND Internal Medicine
PROC: 3E013GC Introduction of Other Therapeutic Substance into Subcutaneous Tissue, Percutaneous Approach (ICD-10-PCS; principal; 2016-11-20)
DX: J45.50 Severe persistent asthma, uncomplicated (principal)
CPT/HCPCS: 96372; J2357

== ENCOUNTER 2017-01-16 15:11 | Day surgery (SDC) | payer OTHER ==
[2017-01-16 15:38] VITALS: BP 129/87; PULSE 95; TEMP 98
[2017-01-16] MEDS ORDERED: EPINEPHrine/PF 1 MG/1 ML (1:1,000) AMPULE SQ PRN (16:00)
[2017-01-16] MEDS ORDERED: OMALIZUMAB 150 MG/VIAL ML SQ ONE (16:00)
== END 2017-01-16 16:15 | disposition home or self-care (01) ==
LOC: JINFUSION 15:11 → J7W 15:12 → JINFUSION 16:15
PROVIDERS: ATTEND Internal Medicine
PROC: 3E033GC Introduction of Other Therapeutic Substance into Peripheral Vein, Percutaneous Approach (ICD-10-PCS; principal; 2017-01-16)
DX: J45.50 Severe persistent asthma, uncomplicated (principal)
CPT/HCPCS: 96372; J2357

== ENCOUNTER 2017-02-23 16:31 | Day surgery (SDC) | payer OTHER ==
[~2017-02-23 16:31] MED LIST changes: +EPINEPHrine 1:1,000 0.3 MG/0.3 ML SYR IM PRN; -EPINEPHrine/PF 1 MG/1 ML (1:1,000) AMPULE SQ PRN
[2017-02-23 18:10] VITALS: TEMP 98.1
[2017-02-23 18:11] VITALS: BP 126/90; PULSE 93
--- NOTE | 2017-02-24 15:12 | EKG ---
Test Reason : Blood Pressure : / mmHG Vent. Rate : 102 BPM Atrial Rate : 102 BPM P-R Int : 130 ms QRS Dur : 080 ms QT Int : 336 ms P-R-T Axes : 054 040 016 degrees QTc Int : 437 ms SINUS TACHYCARDIA POSSIBLE LEFT ATRIAL ENLARGEMENT BORDERLINE ECG WHEN COMPARED WITH ECG OF 03-MAR-2015 05:47, CRITERIA FOR SEPTAL INFARCT ARE NO LONGER PRESENT Confirmed by Luis Espinoza MD ([id number]) on 02/24/2017 3:11:45 PM Referred By: Confirmed By:Luis Espinoza MD
== END 2017-02-23 17:50 | disposition home or self-care (01) ==
LOC: JINFUSION 16:31 → J7W 16:45 → JINFUSION 17:50
PROVIDERS: ATTEND Internal Medicine
PROC: 3E013GC Introduction of Other Therapeutic Substance into Subcutaneous Tissue, Percutaneous Approach (ICD-10-PCS; principal; 2017-02-23)
DX: J45.50 Severe persistent asthma, uncomplicated (principal)
CPT/HCPCS: 93005; 93010; 96372; J2357

== ENCOUNTER 2017-03-23 15:47 | Day surgery (SDC) | payer OTHER ==
[~2017-03-23 15:47] MED LIST changes: -EPINEPHrine 1:1,000 0.3 MG/0.3 ML SYR IM PRN; -OMALIZUMAB 150 MG/VIAL ML SQ ONE; +OMALIZUMAB 150 MG/VIAL ML SQ SCH
[2017-03-23] MEDS ORDERED: EPINEPHrine/PF 1 MG/1 ML (1:1,000) AMPULE SQ PRN (16:00)
[2017-03-23 17:14] VITALS: BP 146/89; PULSE 95; TEMP 98.1
== END 2017-03-23 16:45 | disposition home or self-care (01) ==
LOC: JINFUSION 15:47 → J7W 15:47 → JINFUSION 16:45
PROVIDERS: ATTEND Internal Medicine
PROC: 3E013GC Introduction of Other Therapeutic Substance into Subcutaneous Tissue, Percutaneous Approach (ICD-10-PCS; principal; 2017-03-23)
DX: J45.50 Severe persistent asthma, uncomplicated (principal)
CPT/HCPCS: 96372; J2357

== ENCOUNTER 2017-05-07 16:23 | Day surgery (SDC) | payer OTHER ==
[~2017-05-07 16:23] MED LIST changes: +EPINEPHrine/PF 1 MG/1 ML (1:1,000) AMPULE SQ PRN; +OMALIZUMAB 150 MG/VIAL ML SQ ONE; -OMALIZUMAB 150 MG/VIAL ML SQ SCH
[2017-05-07 17:47] VITALS: BP 146/77; PULSE 84; TEMP 98.4
== END 2017-05-07 17:30 | disposition home or self-care (01) ==
LOC: JINFUSION 16:23 → J7W 16:25 → JINFUSION 17:30
PROVIDERS: ATTEND Internal Medicine
PROC: 3E013GC Introduction of Other Therapeutic Substance into Subcutaneous Tissue, Percutaneous Approach (ICD-10-PCS; principal; 2017-05-07)
DX: J45.50 Severe persistent asthma, uncomplicated (principal)
CPT/HCPCS: 96372; J2357

== ENCOUNTER 2017-06-10 15:23 | Day surgery (SDC) | payer OTHER ==
[~2017-06-10 15:23] MED LIST changes: -OMALIZUMAB 150 MG/VIAL ML SQ ONE; +OMALIZUMAB 150 MG/VIAL ML SQ SCH
[2017-06-10 17:08] VITALS: BP 150/101; PULSE 105; TEMP 98.2
== END 2017-06-10 16:20 | disposition home or self-care (01) ==
LOC: JINFUSION 15:23 → J7W 15:24 → JINFUSION 16:20
PROVIDERS: ATTEND Internal Medicine
PROC: 3E013GC Introduction of Other Therapeutic Substance into Subcutaneous Tissue, Percutaneous Approach (ICD-10-PCS; principal; 2017-06-10)
DX: J45.50 Severe persistent asthma, uncomplicated (principal)
CPT/HCPCS: 96372; J2357

== ENCOUNTER 2017-06-26 09:32 | Emergency (ER) | payer OTHER ==
[2017-06-26 09:53] VITALS: BP 136/76; PULSE 87; TEMP 98.5; BMI 39.0
--- NOTE | 2017-06-26 11:00 | PDOC ---
History of Present Illness - General Chief Complaint: Pain, Acute Stated Complaint: RT LEG PAIN Time Seen by Provider: 06/26/17 10:26 - History of Present Illness Initial Comments: 41-year-old female presents for evaluation of atraumatic right calf pain. She states she was walking 2 days ago felt a pop in her leg and been having pain ever since. She points to the posterior aspect of her right calf as the area of her discomfort pain is described as sharp exacerbated with weightbearing and walking relieved with rest and with radiation up into the posterior aspect of her upper leg no prior problems like this in the past. No fever chills night sweats chest pain shortness of breath or any other associated symptoms. 06/26/17 10:55 Past History - Past Medical History Allergies/Adverse Reactions: Allergies Allergy/AdvReac Type Severity Reaction Status Date / Time shellfish derived Allergy SWELLING, Verified 06/26/17 09:46 DIFFICULTY BREATHING, ITCHING iv contrast Allergy Uncoded 06/26/17 09:46 Home Medications: Ambulatory Orders Albuterol 0.083% Nebulizer Kelly [Ventolin 0.083% Nebulizer Soln -] 1 neb NEB QID PRN 02/26/15 Albuterol Sulfate Inhaler - [Ventolin HFA Inhaler -] 2 inh PO Q4H PRN 07/20/15 Tiotropium [place] [Spiriva] 1 inh PO DAILY 07/20/15 Omalizumab [Xolair -] 0 mg SQ Q30D 08/27/16 Albuterol 2.5/Ipratropium 0.5 [Duoneb -] 1 amp NEB QIDR #28 amp 08/29/16 Budesonide/Formeterol Fumarate [SYMBICORT 160/4.5mcg -] 2 puff IH BID #1 inhaler 08/29/16 Guaifenesin [Robitussin -] 10 ml PO Q4H PRN #420 ml 08/29/16 Montelukast Na [Singulair -] 10 mg PO HS #30 tablet 08/29/16 Pantoprazole Sodium [Protonix -] 40 mg PO DAILY #14 tablet 08/29/16 Prednisone 10 mg PO BID #90 tablet 08/29/16 Anemia: No Asthma: Yes Cancer: No Cardiac Disorders: No CVA: No COPD: No CHF: No Dementia: No Diabetes: No GI Disorders: No Disorders: No HTN: No Hypercholesterolemia: Yes Liver Disease: No Seizures: No Thyroid Disease: No - Surgical History Abdominal Surgery: No Appendectomy: Yes Cardiac Surgery: No Cholecystectomy: No Lung Surgery: No Neurologic Surgery: No Orthopedic Surgery: No - Immunization History Immunization Up to Date: Yes - Suicide/Smoking/Psychosocial Hx Smoking Status: Yes Smoking History: Never smoked Have you smoked in the past 12 months: Yes Number of Cigarettes Smoked Daily: 1 If you are a former smoker, when did you quit?: 07/2013 Cigars Per Day: 1 Information on smoking cessation initiated: No 'Breaking Loose' booklet given: 07/28/13 Hx Alcohol Use: No Drug/Substance Use Hx: No Substance Use Type: None Hx Substance Use Treatment: No Review of Systems - Review of Systems Comments:: 06/26/17 10:55 GENERAL/CONSTITUTIONAL: [No fever or chills. No weakness. No weight change.] HEAD, EYES, EARS, NOSE AND THROAT: [No change in vision. No ear pain or discharge. No sore throat.] CARDIOVASCULAR: [No chest pain or shortness of breath.] RESPIRATORY: [No cough, wheezing, or hemoptysis.] GASTROINTESTINAL: [No nausea, vomiting, diarrhea or constipation. No rectal bleeding.] GENITOURINARY: [No dysuria, frequency, or change in urination.] MUSCULOSKELETAL: [No joint or muscle swelling or pain. No neck or back pain. RIGHT CALF PAIN] SKIN AND BREASTS: [No rash or easy bruising.] NEUROLOGIC: [No headache, vertigo, loss of consciousness, or loss of sensation.] PSYCHIATRIC: [No depression or anxiety.] ENDOCRINE: [No increased thirst. No abnormal weight change.] HEMATOLOGIC/LYMPHATIC: [No anemia, easy bleeding, or history of blood clots.] ALLERGIC/IMMUNOLOGIC: [No hives or skin allergy. No latex allergy.] *Physical Exam - Vital Signs Last Vital Signs Temp Pulse Resp BP Pulse Ox 98.5 F 87 16 136/76 97 06/26/17 09:47 06/26/17 09:47 06/26/17 09:47 06/26/17 09:47 06/26/17 09:47 - Physical Exam Comments: Right Skin color and temperature are normal there is full nonpainful range of motion of the knee pain with dorsiflexion of the ankle calf is soft as compared to the contralateral side with associated tenderness. There are no gross sensorimotor deficits. Homans sign is mildly positive.There is mild discomfort and tenderness about the medial aspect of the R thigh 06/26/17 10:56 ED Treatment Course - RADIOLOGY Radiology Studies Ordered: Category Date Time Status DUPLEX VASCUL US-1 LEG [US] Stat Ultrasound 06/26/17 10:52 Ordered *DC/Admit/Observation/Transfer Diagnosis at time of Disposition: Strain of calf muscle - Discharge Dispostion Disposition: HOME Condition at time of disposition: Stable Decision to Admit order: No - Referrals Referrals: Claude Baeza MD [Primary Care Provider] - Luciano Nur MD [Staff Physician] - - Patient Instructions Printed Discharge Instructions: Calf Muscle Strain, DI for Calf Muscle Strain Additional Instructions: Ultrasound was negative this is a right calf strain. He may weight-bear as tolerated with use of crutches and follow-up with orthopedic surgery in the next 1-2 days return to the emergency room if symptoms worsen or go unresolved may take Tylenol or Motrin for pain - Post Discharge Activity Forms/Work/School Notes: Back to Work
== END 2017-06-26 12:02 | disposition home or self-care (01) ==
LOC: JERFT 09:32
DX: S86.911A Strain of unspecified muscle(s) and tendon(s) at lower leg level, right leg, initial encounter (principal); X58.XXXA Exposure to other specified factors, initial encounter; Y93.9 Activity, unspecified; Z87.891 Personal history of nicotine dependence
CPT/HCPCS: 93971-TC; 99281-25

== ENCOUNTER 2017-07-27 10:18 | Inpatient (IN) | payer OTHER ==
[2017-07-27 10:24] VITALS: BMI 39.0
[2017-07-27] MEDS ORDERED: ALBUTEROL SO4 2.5/IPRATROPIUM 0.5 INH SOL 3 ML VIAL.NEB. NEB ONE ×3 (10:26→15:26)
[2017-07-27] MEDS ORDERED: DEXAMETHASONE LIQUID 0.5 MG/5 ML 240 ML BULK BOTTLE PO ONE (10:56)
[2017-07-27] MEDS ORDERED: DEXAMETHASONE SOD PHOSPHATE 10 MG/1 ML VIAL ONE (10:59)
[2017-07-27] MEDS: ALBUTEROL SO4 2.5/IPRATROPIUM 0.5 INH SOL 3 ML VIAL.NEB. NEB SCH ×4 (11:01→11:59)
--- NOTE | 2017-07-27 11:02 | PDOC ---
History of Present Illness - General Chief Complaint: Asthma Stated Complaint: SOB (ASTHMA) Time Seen by Provider: 07/27/17 10:55 - History of Present Illness Initial Comments: 41-year-old female with a past medical history significant for asthma. She's had shortness of breath and coughing as well as wheezing for the last 2 days no fever this was precipitated by an upper respiratory infection so she states. She 's never been intubated. She's been hospitalized numerous times. 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 07/27/17 11:00 Past History - Past Medical History Allergies/Adverse Reactions: Allergies Allergy/AdvReac Type Severity Reaction Status Date / Time shellfish derived Allergy SWELLING, Verified 07/27/17 10:25 DIFFICULTY BREATHING, ITCHING iv contrast Allergy Uncoded 07/27/17 10:25 Home Medications: Ambulatory Orders Albuterol 0.083% Nebulizer Kelly [Ventolin 0.083% Nebulizer Soln -] 1 neb NEB QID PRN 02/26/15 Albuterol Sulfate Inhaler - [Ventolin HFA Inhaler -] 2 inh PO Q4H PRN 07/20/15 Tiotropium [place] [Spiriva] 1 inh PO DAILY 07/20/15 Omalizumab [Xolair -] 0 mg SQ Q30D 08/27/16 Albuterol 2.5/Ipratropium 0.5 [Duoneb -] 1 amp NEB QIDR #28 amp 08/29/16 Budesonide/Formeterol Fumarate [SYMBICORT 160/4.5mcg -] 2 puff IH BID #1 inhaler 08/29/16 Guaifenesin [Robitussin -] 10 ml PO Q4H PRN #420 ml 08/29/16 Montelukast Na [Singulair -] 10 mg PO HS #30 tablet 08/29/16 Pantoprazole Sodium [Protonix -] 40 mg PO DAILY #14 tablet 08/29/16 Prednisone 10 mg PO BID #90 tablet 08/29/16 Anemia: No Asthma: Yes Cancer: No Cardiac Disorders: No CVA: No COPD: No CHF: No Dementia: No Diabetes: No GI Disorders: No Disorders: No HTN: No Hypercholesterolemia: Yes Liver Disease: No Seizures: No Thyroid Disease: No - Surgical History Abdominal Surgery: No Appendectomy: Yes Cardiac Surgery: No Cholecystectomy: No Lung Surgery: No Neurologic Surgery: No Orthopedic Surgery: No - Immunization History Immunization Up to Date: Yes - Suicide/Smoking/Psychosocial Hx Smoking Status: Yes Smoking History: Never smoked Have you smoked in the past 12 months: Yes Number of Cigarettes Smoked Daily: 1 If you are a former smoker, when did you quit?: 07/2013 Cigars Per Day: 1 Information on smoking cessation initiated: No 'Breaking Loose' booklet given: 07/28/13 Hx Alcohol Use: No Drug/Substance Use Hx: No Substance Use Type: None Hx Substance Use Treatment: No Review of Systems - Review of Systems Respiratory: Yes: See HPI, Cough, Shortness of Breath, SOB with Exertion, Wheezing All Other Systems: Reviewed and Negative *Physical Exam - Vital Signs Last Vital Signs Temp Pulse Resp BP Pulse Ox 98.1 F 76 19 150/78 99 07/27/17 10:21 07/27/17 10:21 07/27/17 10:21 07/27/17 10:21 07/27/17 10:21 - Physical Exam Comments: GENERAL: The patient is awake, alert, and fully oriented, in no acute distress. HEAD: Normal with no signs of trauma. EYES: Pupils equal, round and reactive to light, extraocular movements intact, sclera anicteric, conjunctiva clear. ENT: Ears normal, nares patent, oropharynx clear without exudates. Moist mucous membranes. NECK: Normal range of motion, supple without lymphadenopathy, JVD, or masses. LUNGS: Diffuse wheezing HEART: Regular rate and rhythm, normal S1 and S2 without murmur, rub or gallop. ABDOMEN: Soft, nontender, normoactive bowel sounds. No guarding, no rebound. No masses. EXTREMITIES: Normal range of motion, no edema. No clubbing or cyanosis. No cords, erythema, or tenderness. NEUROLOGICAL: Cranial nerves II through XII grossly intact. Normal speech, normal gait. PSYCH: Normal mood, normal affect. SKIN: Warm, Dry, normal turgor, no rashes or lesions noted. 07/27/17 11:01 ED Treatment Course - Medications Given in the ED: ED Medications Discontinued Medications Generic Name Dose Route Start Last Admin Trade Name Freq PRN Reason Stop Dose Admin Albuterol/Ipratropium 1 amp 07/27/17 10:26 07/27/17 10:27 Duoneb - NEB 07/27/17 10:27 1 amp NOW ONE Administration Medical Decision Making - Medical Decision Making 41-year-old female with numerous prior hospitalizations for asthma exacerbation presents for another exacerbation today. I will start with DuoNeb nebs 4 and some steroids and reevaluate her. 07/27/17 11:02 *DC/Admit/Observation/Transfer - Referrals Referrals: Claude Baeza MD [Primary Care Provider] - - Patient Instructions - Post Discharge Activity
[2017-07-27] MEDS ORDERED: MAGNESIUM SULF 50% (8.12 MEQ/2 ML-1 GM VIAL) IVPB ONE (11:59)
--- NOTE | 2017-07-27 12:00 | PDOC ---
*Physical Exam - Vital Signs Last Vital Signs Temp Pulse Resp BP Pulse Ox 98.1 F 76 19 150/78 99 07/27/17 10:21 07/27/17 10:21 07/27/17 10:21 07/27/17 10:21 07/27/17 10:21 - Physical Exam General Appearance: Yes: Nourished, Appropriately Dressed, Mild Distress ( Unable to speak in full sentences. ) HEENT: positive: EOMI, SILVINO. negative: Nasal Congestion, Rhinorrhea, Sinus Tenderness Neck: positive: Trachea midline, Supple. negative: Tender, Rigid, Lymphadenopathy (R), Lymphadenopathy (L) Respiratory/Chest: positive: Lungs Clear, Respiratory Distress (mild, unable to speak in full sentences.), Decreased Breath Sounds (tight breath sounds with poor aeration to the bases). negative: Chest Tender, Normal Breath Sounds, Accessory Muscle Use, Rhonchi, Stridor, Wheezing Cardiovascular: positive: Regular Rhythm, Regular Rate, S1, S2 (present). negative: Murmur Integumentary: positive: Normal Color, Dry, Warm Neurologic: positive: Fully Oriented, Alert, Normal Mood/Affect, Normal Response , Motor Strength 06/20 ED Treatment Course - LABORATORY CBC & Chemistry Diagram: 07/28/17 06:45 07/28/17 06:45 - Medications Given in the ED: ED Medications Discontinued Medications Generic Name Dose Route Start Last Admin Trade Name Freq PRN Reason Stop Dose Admin Albuterol/Ipratropium 1 amp 07/27/17 10:26 07/27/17 10:27 Duoneb - NEB 07/27/17 10:27 1 amp NOW ONE Administration Albuterol/Ipratropium 1 amp 07/27/17 11:00 07/27/17 11:59 Duoneb - NEB 07/27/17 11:46 1 amp Q15M TODD Administration Dexamethasone 10 mg 07/27/17 10:56 07/27/17 11:01 Decadron Liquid - PO 07/27/17 10:57 10 mg ONCE ONE Administration Medical Decision Making - Medical Decision Making 07/27/17 12:00 Patient is a 41-year-old female who was transferred from fast track to the main ER for higher level of care by CELIA Sanchez. Patient is a known asthmatic who is had multiple admissions for her asthma. Her machine carton marker is Dr. Prado. Patient received 4 DuoNeb's and 10 mg of Decadron prior to arrival. 2 g of mag running now we'll consult with Dr. Prado. 07/27/17 14:[address] Prado. Given pt's history of poorly controlled asthma, recommending keeping the patient for observation. Basic labs ordered at this time. [facility] once the lab work has resulted. 5th duoneb ordered. Pt. states that she does not feel better after the mag 07/27/17 16:57 Lab work unremarkable at this time. CXR is negative for PNA or acute process. Spoke to Regina Rausch, case discussed and agrees with obs placement. Dr. Shabazz has evaluated the pt at bed side. *DC/Admit/Observation/Transfer Diagnosis at time of Disposition: Asthma exacerbation Qualifiers: Asthma severity: moderate Asthma persistence: unspecified Qualified Code(s): J45.901 - Unspecified asthma with (acute) exacerbation - Discharge Dispostion Condition at time of disposition: Guarded Decision to Admit order: Yes - Referrals - Patient Instructions - Post Discharge Activity
[2017-07-27 12:36] LABS: HCG,QUALITATIVE URINE NEGATIVE
[2017-07-27 12:42] LABS: URINE APPEARANCE SLCLOUDY; URINE BILIRUBIN NEGATIVE (<2.0 mg/dL); URINE COLOR YELLOW; URINE GLUCOSE (UA) NEGATIVE (NEGATIVE); URINE KETONE NEGATIVE (NEGATIVE); URINE LEUK ESTERASE TRACE (NEGATIVE); URINE NITRITE NEGATIVE (NEGATIVE); URINE PROTEIN NEGATIVE (NEGATIVE); URINE UROBILINOGEN NEGATIVE mg/dL (0.2-1.0)
[2017-07-27 12:46] LABS: EPI CELLS MODERATE /HPF (FEW); URINE BACTERIA RARE /hpf (NONE SEEN); URINE MUCUS RARE
[2017-07-27] MEDS ORDERED: ACETAMINOPHEN W/ CODEINE LIQ 5 ML CUP PO ONE (12:49)
[2017-07-27 16:13] LABS: BASO % 0.6 % (0-2.0); HEMATOCRIT 41.3 % (32.4-45.2); HEMOGLOBIN 13.8 GM/dL (10.7-15.3); LYMPH % 3.6 % (8-40); MCH 29.9 pg (25.7-33.7); MCHC 33.5 g/dl (32.0-36.0); MEAN CELL VOLUME 89.3 fl (80-96); MEAN PLT VOLUME 7.8 fl (7.5-11.1); MONO % 0.6 % (3.8-10.2); NEUT % 95.2 % (42.8-82.8); PLATELET COUNT 371 K/MM3 (134-434); RBC 4.63 M/mm3 (3.60-5.2); RDW 14.1 % (11.6-15.6); WHITE BLOOD COUNT 11.7 K/mm3 (4.0-10.0)
[2017-07-27 16:25] LABS: ALBUMIN 3.6 g/dl (3.4-5.0); ANION GAP 8 (8-16); BILIRUBIN,TOTAL 0.2 mg/dL (0.2-1.0); BLOOD UREA NITROGEN 8 mg/dL (7-18); CALCIUM 8.7 mg/dL (8.5-10.1); CHLORIDE 107 mmol/L (98-107); CO2 25 mmol/L (21-32); CREATININE 0.7 mg/dL (0.55-1.02); GLUCOSE,RANDOM 114 mg/dL (74-106); POTASSIUM 4.1 mmol/L (3.5-5.1); SGOT/AST 15 U/L (15-37); SODIUM 140 mmol/L (136-145); TOT PROT 7.6 g/dl (6.4-8.2)
--- NOTE | 2017-07-27 16:26 | PN ---
Progress Note (short form) - Note Progress Note: PULMONARY CONSULTATION DICTATED 07/27/17 IMP CHRONIC PERSISTENT ASTHMA WITH ACUTE EXACERBATION DYSPNEA SECONDARY TO ABOVE PLAN IV STEROIDS INHALED BRONCHODILATORS SINGULAR O2 MONITOR PEAK FLOW DR NICHOLAS Problem List - Problems (1) Asthma exacerbation Code(s): J45.901 - UNSPECIFIED ASTHMA WITH (ACUTE) EXACERBATION (2) Shortness of breath Code(s): R06.02 - SHORTNESS OF BREATH
[2017-07-27] MEDS ORDERED: BUDESONIDE/FORMETEROL FUMARATE 160/4.5 mcg INHALER IH SCH (16:30)
[2017-07-27] MEDS: methylPREDNISolone NA SUCC 40 MG/1 ML VIAL IVPUSH SCH ×2 (16:36→22:25)
[2017-07-27 16:56] LABS: ALK PHOS 94 U/L (45-117)
[2017-07-27 17:12] LABS: SGPT/ALT 27 U/L (12-78)
[2017-07-27] MEDS ORDERED: ALBUTEROL SO4 2.5/IPRATROPIUM 0.5 INH SOL 3 ML VIAL.NEB. NEB PRN (17:44)
[2017-07-27 17:47] LABS: PLATELET ESTIMATE ADEQUATE
--- NOTE | 2017-07-27 17:56 | HP ---
CHIEF COMPLAINT: shortness of breath PCP: Dr. Baeza HISTORY OF PRESENT ILLNESS: This is a 41 year old female with PMHx of asthma who presented to the ED with increased shortness of breath. The patient reports that about 1 week ago she had a sore throat which resolved after one day, then she developed a cold. The cold went away within 1-2 days and then about 2 days ago she developed a dry cough. She reports having increased in chest tightness and difficulty breathing. She states that this morning around 4am she woke up because she was unable to breath. She states she used her nebulizer and felt slightly better. She states that she then knew it was her asthma and came to the ED. She denies any fever, chills, sputum production, chest pain, headache, dizziness, syncope, lower extremity swelling, orthopnea. ER course was notable for: (1) Temp 98.1, pulse 76, BP 150/78, resp 19, O2 99% on RA (2) Chest x-ray pending read (3) WBC 11.7 Recent Travel: denies PAST MEDICAL HISTORY: as above PAST SURGICAL HISTORY: denies Social History: Smoking: denies Alcohol: denies Drugs: denies Family History: Allergies shellfish derived Allergy (Verified 07/27/17 10:25) SWELLING, DIFFICULTY BREATHING, ITCHING iv contrast Allergy (Uncoded 07/27/17 10:25) HOME MEDICATIONS: Home Medications Medication Instructions Recorded Albuterol Sulfate Inhaler - 2 inh PO Q4H PRN 07/20/15 [Ventolin HFA Inhaler -] Tiotropium [place] [Spiriva] 1 inh PO DAILY 07/20/15 Omalizumab [Xolair -] 0 mg SQ Q30D 08/27/16 Albuterol 2.5/Ipratropium 0.5 1 amp NEB QIDR #28 amp 08/29/16 [Duoneb -] Budesonide/Formeterol Fumarate 2 puff IH BID #1 inhaler 08/29/16 [SYMBICORT 160/4.5mcg -] Montelukast Na [Singulair -] 10 mg PO HS #30 tablet 08/29/16 Pantoprazole Sodium [Protonix -] 40 mg PO DAILY #14 tablet 08/29/16 REVIEW OF SYSTEMS CONSTITUTIONAL: Absent: fever, chills, diaphoresis, generalized weakness, malaise, loss of appetite, weight change HEENT: Absent: rhinorrhea, nasal congestion, throat pain, throat swelling, difficulty swallowing, mouth swelling, ear pain, eye pain, visual changes CARDIOVASCULAR: Absent: chest pain, syncope, palpitations, irregular heart rate, lightheadedness , peripheral edema RESPIRATORY: Shortness of breath that started with a dry cough 2 days ago and has progressively worsened this morning. Mild wheezing, however the patient reports it to be a chest tightness Absent: orthopnea, stridor, hemoptysis GASTROINTESTINAL: Absent: abdominal pain, abdominal distension, nausea, vomiting, diarrhea, constipation, melena, hematochezia GENITOURINARY: Absent: dysuria, frequency, urgency, hesitancy, hematuria, flank pain, genital pain MUSCULOSKELETAL: Absent: myalgia, arthralgia, joint swelling, back pain, neck pain SKIN: Absent: rash, itching, pallor HEMATOLOGIC/IMMUNOLOGIC: Absent: easy bleeding, easy bruising, lymphadenopathy, frequent infections ENDOCRINE: Absent: unexplained weight gain, unexplained weight loss, heat intolerance, cold intolerance NEUROLOGIC: Absent: headache, focal weakness or paresthesias, dizziness, unsteady gait, seizure, mental status changes, bladder or bowel incontinence PSYCHIATRIC: Absent: anxiety, depression, suicidal or homicidal ideation, hallucinations. PHYSICAL EXAMINATION Vital Signs - 24 hr 07/27/17 07/27/17 10:21 13:39 Temperature 98.1 F Pulse Rate 76 Pulse Rate [ 73 Apical] Respiratory 19 22 Rate Blood Pressure 150/78 Blood Pressure 120/67 [Right Arm] O2 Sat by Pulse 99 99 Oximetry (%) GENERAL: Awake, alert, and fully oriented, in no acute distress. HEAD: Normal with no signs of trauma. EYES: Pupils equal, round and reactive to light, extraocular movements intact, sclera anicteric, conjunctiva clear. No lid lag. EARS, NOSE, THROAT: Ears normal, nares patent, oropharynx clear without exudates. Moist mucous membranes. NECK: Normal range of motion, supple without lymphadenopathy, JVD, or masses. LUNGS: Decreased inspiration. Mild wheezing. HEART: Regular rate and rhythm, normal S1 and S2 without murmur, rub or gallop. ABDOMEN: Soft, nontender, not distended, normoactive bowel sounds, no guarding, no rebound, no masses. No hepatomegaly or splenomegaly. MUSCULOSKELETAL: Normal range of motion at all joints. No bony deformities or tenderness. No CVA tenderness. UPPER EXTREMITIES: 2+ pulses, warm, well-perfused. No cyanosis. No clubbing. No peripheral edema. LOWER EXTREMITIES: 2+ pulses, warm, well-perfused. No calf tenderness. No peripheral edema. NEUROLOGICAL: Cranial nerves II-XII intact. Normal speech. Normal gait. PSYCHIATRIC: Cooperative. Good eye contact. Appropriate mood and affect. SKIN: Warm, dry, normal turgor, no rashes or lesions noted, normal capillary refill. Laboratory Results - last 24 hr 07/27/17 07/27/17 07/27/17 12:18 15:31 15:31 WBC 11.7 H RBC 4.63 Hgb 13.8 Hct 41.3 MCV 89.3 MCH 29.9 MCHC 33.5 RDW 14.1 Plt Count 371 MPV 7.8 Absolute Neuts (auto) 11.1 Total Counted 100 Neutrophils % 95.2 H Neutrophils % (Manual) 94.0 H Lymphocytes % 3.6 L D Lymphocytes % (Manual) 6.0 L Monocytes % 0.6 L Monocytes % (Manual) 0 L Eosinophils % 0.0 Basophils % 0.6 D Nucleated RBC % 0 Platelet Estimate Adequate Platelet Comment No clumping noted Sodium 140 Potassium 4.1 Chloride 107 Carbon Dioxide 25 Anion Gap 8 BUN 8 Creatinine 0.7 Creat Clearance w eGFR > 60 Random Glucose 114 H Calcium 8.7 Total Bilirubin 0.2 D AST 15 ALT 27 Alkaline Phosphatase 94 Total Protein 7.6 Albumin 3.6 Urine Color Yellow Urine Appearance Slcloudy Urine pH 7.0 Ur Specific [place] 1.012 Urine Protein Negative Urine Glucose (UA) Negative Urine Ketones Negative Urine Blood Negative Urine Nitrite Negative Urine Bilirubin Negative Urine Urobilinogen Negative Ur Leukocyte Esterase Trace Urine WBC (Auto) 7 Urine RBC (Auto) 1 Ur Epithelial Cells Moderate Urine Bacteria Rare Urine Mucus Rare Urine HCG, Qual Negative Assessment: This is a 41 year old female with PMHx of asthma who presented to the ED with increased shortness of breath. Plan: 1) Acute on chronic asthma exacerbation - F/u chest x-ray - Solu-medrol 60mg IVP q6h - Albuterol nebs - Continue Symbicort - Continue Spiriva - Continue Singulair - Continue Protonix for GI protection with steroids - Appreciate pulmonary consult 2) F/E/N: - Regular diet - Monitor electrolytes 3) Prophylaxis: - OOB ambulating - SCDs bilaterally 4) Dispo: - Once condition improves CODE STATUS: FULL CODE Visit type - Emergency Visit Emergency Visit: Yes ED Registration Date: 07/27/17 Care time: The patient presented to the Emergency Department on the above date and was hospitalized for further evaluation of their emergent condition. - New Patient This patient is new to me today: Yes Date on this admission: 07/27/17 - Critical Care Critical Care patient: No Hospitalist Screening - Colonoscopy Questionnaire Colonoscopy Questionnaire: Colonoscopy Questionnaire - Patient: 50 - 75 years old and never had a screening colonoscopy: No History of colon or rectal polyps, or CA: No History of IBD, Crohn's disease or UC: No History of abdominal radiation therapy as a child: No - Relative: 1 with colon or rectal CA, or polyps at age 60 or younger: No Colon or rectal CA diagnosed at age 45 or younger: No Multiple relatives with colon or rectal CA: No - Outcome: Screening Result: Negative Screen
--- NOTE | 2017-07-27 18:29 | CONS ---
PULMONARY CONSULTATION DATE OF CONSULTATION: 07/27/2017 The patient is a 41-year-old female known to me in previous hospitalization with past medical history of chronic, persistent asthma maintained on inhaled bronchodilators, inhaled corticosteroids, intermittent steroids, p.o. steroids, also on Xolair, who presented to [facility] with complaint of 2-day history of increasing shortness of breath, cough, and bronchospasm. Patient states she initially developed this since 2 days ago. At the time, she started feeling increasing shortness of breath and dyspnea with exertion. She also felt like a tickle in the back of her throat. Over the course of the next day or so, her symptoms continued to worsen. She took 60 mg of prednisone, and despite these measures, it offered no improvement. At which time, she presented to the emergency room. In the ER, she was administered inhaled bronchodilators and magnesium sulfate with some clinical improvement. She is a nonsmoker. There is no history of occupational exposure to chemicals or fumes. She has never been intubated. She has had multiple hospitalizations in the past secondary to asthma exacerbations. PAST MEDICAL HISTORY: Again includes chronic, persistent asthma. MEDICATIONS PRIOR TO ADMISSION: Include albuterol, Spiriva, Xolair, DuoNeb, Dulera, Robitussin, and Singulair. REVIEW OF SYSTEMS: Positive shortness of breath. Positive cough. Positive chest tightness. Positive wheezing. No fever. No chills. No hemoptysis. No abdominal pain. No lower extremity edema. CURRENT MEDICATIONS: Include Tudorza. PHYSICAL EXAMINATION: General: The patient is a well-developed, well-nourished female, awake, alert, mildly dyspneic but in no acute distress. Vital Signs: She is currently afebrile. Her blood pressure is 120/67. Respiratory rate is 22. O2 saturation is 99% on room air. HEENT: Normocephalic, atraumatic. Neck: Supple. Heart: Regular. S1, S2. Chest: A few scattered bilateral wheezes. Abdomen: Soft. Bowel sounds are positive. Extremities: No cyanosis or edema. LABORATORY DATA: WBC is 11.7, hemoglobin 13.8, hematocrit 41.3, with a platelet count of 371,000. Chemistries: BUN is pending. Chest x-ray is with no acute infiltrates and effusions. IMPRESSION: Chronic, persistent asthma with acute exacerbation. PLAN: IV steroids, inhaled bronchodilators, supplemental O2. Monitor peak flow. Inhaled steroids, nasal O2 [id number]
[2017-07-27] MEDS: guaiFENesin/CODEINE 10 ML UNIT-DOSE CUPS PO PRN (20:22)
[2017-07-27] MEDS: MONTELUKAST NA 10 MG TABLET PO SCH (22:25)
[2017-07-27] MEDS: BUDESONIDE/FORMETEROL FUMARATE 160/4.5 mcg INHALER IH SCH (22:39)
[2017-07-28] MEDS: ALBUTEROL SO4 0.083% IH SOL 2.5 MG/3 ML VIAL.NEB. NEB PRN ×3 (00:51→11:46)
[2017-07-28] MEDS: ACETAMINOPHEN 325 MG TABLET (FP) PO PRN (01:47)
[2017-07-28] MEDS: methylPREDNISolone NA SUCC 40 MG/1 ML VIAL IVPUSH SCH ×4 (04:29→17:42)
[2017-07-28] MEDS: guaiFENesin/CODEINE 10 ML UNIT-DOSE CUPS PO PRN ×3 (06:21→21:40)
[2017-07-28 06:56] LABS: HEMATOCRIT 41.8 % (32.4-45.2); HEMOGLOBIN 14.1 GM/dL (10.7-15.3); MCH 29.8 pg (25.7-33.7); MCHC 33.7 g/dl (32.0-36.0); MEAN CELL VOLUME 88.4 fl (80-96); MEAN PLT VOLUME 7.4 fl (7.5-11.1); PLATELET COUNT 342 K/MM3 (134-434); RBC 4.73 M/mm3 (3.60-5.2); RDW 14.2 % (11.6-15.6); WHITE BLOOD COUNT 15.8 K/mm3 (4.0-10.0)
[2017-07-28 07:55] LABS: CHLORIDE 107 mmol/L (98-107); POTASSIUM 4.2 mmol/L (3.5-5.1); SODIUM 140 mmol/L (136-145)
[2017-07-28 08:34] LABS: ALBUMIN 3.5 g/dl (3.4-5.0); ALK PHOS 91 U/L (45-117); ANION GAP 11 (8-16); BILIRUBIN,TOTAL 0.2 mg/dL (0.2-1.0); BLOOD UREA NITROGEN 9 mg/dL (7-18); CALCIUM 8.9 mg/dL (8.5-10.1); CO2 22 mmol/L (21-32); CREATININE 0.7 mg/dL (0.55-1.02); GLUCOSE,RANDOM 136 mg/dL (74-106); SGOT/AST 13 U/L (15-37); SGPT/ALT 24 U/L (12-78); TOT PROT 7.5 g/dl (6.4-8.2)
[2017-07-28] MEDS: PANTOPRAZOLE 40 MG TABLET (FP) PO SCH ×2 (10:20→10:30)
[2017-07-28] MEDS: BUDESONIDE/FORMETEROL FUMARATE 160/4.5 mcg INHALER IH SCH (10:20)
[2017-07-28] MEDS ORDERED: PT OWN MED DRAWER 7, Y5N ONE ×2 (10:54→13:19)
--- NOTE | 2017-07-28 11:45 | PN ---
Progress Note, Physician History of Present Illness: PULMONARY ALERT,FEELING BETTER,LESS DYSPNEIC,LESS COUGH - Current Medication List Current Medications: Active Medications Acetaminophen (Tylenol -) 650 mg PO Q6H PRN PRN Reason: PAIN LEVEL 6-10 Last Admin: 07/28/17 01:47 Dose: 650 mg Albuterol Sulfate (Ventolin 0.083% Nebulizer Soln -) 1 amp NEB Q2H PRN PRN Reason: SHORT OF BREATH/WHEEZING Last Admin: 07/28/17 06:40 Dose: 1 amp Budesonide/Formoterol Fumarate (Symbicort 160/4.5mcg -) 2 puff IH BID [facility] Last Admin: 07/28/17 10:20 Dose: Not Given Guaifenesin/Codeine Phosphate (Robitussin Ac -) 10 ml PO Q8H PRN PRN Reason: COUGH Last Admin: 07/28/17 06:21 Dose: 10 ml Methylprednisolone Sodium Succinate (Solu-Medrol -) 60 mg IVPUSH Q6H [facility] Last Admin: 07/28/17 10:20 Dose: 60 mg Montelukast Sodium (Singulair -) 10 mg PO HS [facility] Last Admin: 07/27/17 22:25 Dose: 10 mg Pantoprazole Sodium (Protonix -) 40 mg PO DAILY [facility] Last Admin: 07/28/17 10:30 Dose: Not Given Tiotropium [place] (Spiriva -) 1 puff IH DAILY [facility] - Objective Vital Signs: Vital Signs Temperature 97.9 F 07/28/17 09:30 Pulse Rate 100 H 07/28/17 09:30 Respiratory Rate 18 07/28/17 09:30 Blood Pressure 143/57 07/28/17 09:30 O2 Sat by Pulse Oximetry (%) 96 07/28/17 02:00 Constitutional: Yes: Well Nourished, Calm Eyes: Yes: WNL HENT: Yes: WNL Neck: Yes: WNL Cardiovascular: Yes: Regular Rate and Rhythm, S1, S2 Respiratory: Yes: Wheezes (FEW WHEEZES) Gastrointestinal: Yes: Normal Bowel Sounds, Soft Extremities: Yes: WNL Edema: No Labs: CBC, BMP 07/28/17 06:45 07/28/17 06:45 Problem List - Problems (1) Asthma exacerbation Code(s): J45.901 - UNSPECIFIED ASTHMA WITH (ACUTE) EXACERBATION Qualifiers: Asthma severity: moderate Asthma persistence: unspecified Qualified Code( s): J45.901 - Unspecified asthma with (acute) exacerbation (2) Shortness of breath Code(s): R06.02 - SHORTNESS OF BREATH Assessment/Plan IMP CHRONIC PERSISTENT ASTHMA WITH ACUTE EXACERBATION DYSPNEA SECONDARY TO ABOVE PLAN STEROID TAPER INHALED BRONCHODILATORS SINGULAR O2 MONITOR PEAK FLOW DR NICHOLAS Problem List - Problems (1) Asthma exacerbation Code(s): J45.901 - UNSPECIFIED ASTHMA WITH (ACUTE) EXACERBATION (2) Shortness of breath Code(s): R06.02 - SHORTNESS OF BREATH DR NICHOLAS
[2017-07-28] MEDS: TIOTROPIUM BROMIDE 18 MCG CAPSULES IH SCH (12:15)
--- NOTE | 2017-07-28 12:59 | PN ---
Physical Exam: SUBJECTIVE: Patient seen and examined. States she feels better than yesterday, however still has chest tightness and cough. OBJECTIVE: Vital Signs Period Temp Pulse Resp BP Sys/Avelar Pulse Ox Last 24 Hr 96 F-98.1 F 73-100 18-24 120-150/57-100 96-99 PE Neuro: alert, awake, cn 2-12intact Pulm: bibasilar wheezing, rhonchi + cough CV: s1 s2 rrr no mrg Abd: s nt nt + bs Ext: warm, no le edema Laboratory Results - last 24 hr 07/27/17 07/27/17 07/27/17 12:18 15:31 15:31 WBC 11.7 H RBC 4.63 Hgb 13.8 Hct 41.3 MCV 89.3 MCH 29.9 MCHC 33.5 RDW 14.1 Plt Count 371 MPV 7.8 Absolute Neuts (auto) 11.1 Total Counted 100 Neutrophils % 95.2 H Neutrophils % (Manual) 94.0 H Lymphocytes % 3.6 L D Lymphocytes % (Manual) 6.0 L Monocytes % 0.6 L Monocytes % (Manual) 0 L Eosinophils % 0.0 Basophils % 0.6 D Nucleated RBC % 0 Platelet Estimate Adequate Platelet Comment No clumping noted Sodium 140 Potassium 4.1 Chloride 107 Carbon Dioxide 25 Anion Gap 8 BUN 8 Creatinine 0.7 Creat Clearance w eGFR > 60 Random Glucose 114 H Calcium 8.7 Total Bilirubin 0.2 D AST 15 ALT 27 Alkaline Phosphatase 94 Total Protein 7.6 Albumin 3.6 Urine WBC (Auto) 7 Urine RBC (Auto) 1 Ur Epithelial Cells Moderate Urine Bacteria Rare Urine Mucus Rare 07/28/17 07/28/17 06:45 06:45 WBC 15.8 H D RBC 4.73 Hgb 14.1 Hct 41.8 MCV 88.4 MCH 29.8 MCHC 33.7 RDW 14.2 Plt Count 342 MPV 7.4 L Absolute Neuts (auto) Total Counted Neutrophils % Neutrophils % (Manual) Lymphocytes % Lymphocytes % (Manual) Monocytes % Monocytes % (Manual) Eosinophils % Basophils % Nucleated RBC % Platelet Estimate Platelet Comment Sodium 140 Potassium 4.2 Chloride 107 Carbon Dioxide 22 Anion Gap 11 BUN 9 Creatinine 0.7 Creat Clearance w eGFR > 60 Random Glucose 136 H Calcium 8.9 Total Bilirubin 0.2 AST 13 L ALT 24 Alkaline Phosphatase 91 Total Protein 7.5 Albumin 3.5 Urine WBC (Auto) Urine RBC (Auto) Ur Epithelial Cells Urine Bacteria Urine Mucus Active Medications Generic Name Dose Route Start Last Admin Trade Name Morrisq PRN Reason Stop Dose Admin Acetaminophen 650 mg 07/27/17 20:30 07/28/17 01:47 Tylenol - PO 650 mg Q6H PRN Administration PAIN LEVEL 6-10 Albuterol Sulfate 1 amp 07/27/17 17:44 07/28/17 11:46 Ventolin 0.083% Nebulizer Soln - NEB 1 amp Q2H PRN Administration SHORT OF BREATH/WHEEZING Budesonide/Formoterol Fumarate 2 puff 07/27/17 16:46 07/28/17 10:20 Symbicort 160/4.5mcg - IH Not Given BID TODD Guaifenesin/Codeine Phosphate 10 ml 07/27/17 18:41 07/28/17 06:21 Robitussin Ac - PO 10 ml Q8H PRN Administration COUGH Methylprednisolone Sodium Succinate 40 mg 07/28/17 18:00 Solu-Medrol - IVPUSH Q8H-IV TODD Montelukast Sodium 10 mg 07/27/17 22:00 07/27/17 22:25 Singulair - PO 10 mg HS TODD Administration Pantoprazole Sodium 40 mg 07/28/17 10:00 07/28/17 10:30 Protonix - PO Not Given DAILY TODD Tiotropium [place] 1 puff 07/28/17 10:00 07/28/17 12:15 Spiriva - IH 1 puff DAILY TODD Administration Assessment: 41 year old female with PMHx of asthma admitted with increased shortness of breath. Plan: 1. Acute on chronic asthma exacerbation - Improved, - Taper medrol 40mg q8h - Albuterol nebs - Stop Symbicort, pt has adverse rxn to that, takes dulera, NF here - Continue Spiriva - Continue Singulair - Continue Protonix - D/w pulm 2. Prophylaxis - OOB ambulating - SCDs bilaterally CODE STATUS: FULL CODE Visit type - Emergency Visit Emergency Visit: Yes ED Registration Date: 07/27/17 Care time: The patient presented to the Emergency Department on the above date and was hospitalized for further evaluation of their emergent condition. - New Patient This patient is new to me today: Yes Date on this admission: 07/28/17 - Critical Care Critical Care patient: No
[2017-07-28] MEDS ORDERED: morphine CARPU-JECT 2 MG/1 ML DISP.SYRIN IVPUSH PRN (14:04)
[2017-07-28] MEDS ORDERED: ALBUTEROL SO4 0.083% IH SOL 2.5 MG/3 ML VIAL.NEB. NEB PRN (14:06)
[2017-07-28] MEDS: morphine CARPU-JECT 2 MG/1 ML DISP.SYRIN IVPUSH PRN ×2 (14:15→21:40)
[2017-07-28] MEDS: ALBUTEROL SO4 0.083% IH SOL 2.5 MG/3 ML VIAL.NEB. NEB SCH ×3 (14:49→22:24)
[2017-07-28] MEDS: MONTELUKAST NA 10 MG TABLET PO SCH (21:35)
[2017-07-28] MEDS: diphenhydrAMINE HCL 25 MG CAPSULE (FP) PO SCH (21:35)
[2017-07-29] MEDS: methylPREDNISolone NA SUCC 40 MG/1 ML VIAL IVPUSH SCH ×3 (01:56→18:19)
[2017-07-29] MEDS: ALBUTEROL SO4 0.083% IH SOL 2.5 MG/3 ML VIAL.NEB. NEB SCH ×5 (06:50→21:07)
[2017-07-29] MEDS ORDERED: PT OWN MED DRAWER 7, Y5N ONE (09:35)
[2017-07-29] MEDS: TIOTROPIUM BROMIDE 18 MCG CAPSULES IH SCH (09:54)
[2017-07-29] MEDS: guaiFENesin/CODEINE 10 ML UNIT-DOSE CUPS PO PRN ×2 (09:54→18:19)
[2017-07-29] MEDS: PANTOPRAZOLE 40 MG TABLET (FP) PO SCH (09:55)
[2017-07-29] MEDS: morphine CARPU-JECT 2 MG/1 ML DISP.SYRIN IVPUSH PRN ×3 (09:59→23:31)
--- NOTE | 2017-07-29 13:22 | PN ---
Progress Note (short form) - Note Progress Note: PULMONARY States chest tighter today and more short of breath. Peak flow 200 this AM. Vital Signs Period Temp Pulse Resp BP Sys/Avelar Pulse Ox Last 24 Hr 97.7 F-98.4 F 75-101 18-18 120-147/67-87 97-97 Gen: tachypneic at rest Heart: RRR Lung: poor air entry, + wheezes Abd: soft, nontender Ext: no edema CBC, BMP 07/28/17 06:45 07/28/17 06:45 Active Medications Acetaminophen (Tylenol -) 650 mg PO Q6H PRN PRN Reason: PAIN LEVEL 6-10 Last Admin: 07/28/17 01:47 Dose: 650 mg Albuterol Sulfate (Ventolin 0.083% Nebulizer Soln -) 1 amp NEB Q4HWA [facility] Last Admin: 07/29/17 11:00 Dose: 1 amp Diphenhydramine HCl (Benadryl -) 25 mg PO HS [facility] Last Admin: 07/28/17 21:35 Dose: 25 mg Guaifenesin/Codeine Phosphate (Robitussin Ac -) 10 ml PO Q6H PRN PRN Reason: COUGH Last Admin: 07/29/17 09:54 Dose: 10 ml Methylprednisolone Sodium Succinate (Solu-Medrol -) 40 mg IVPUSH Q8H-IV [facility] Last Admin: 07/29/17 09:54 Dose: 40 mg Montelukast Sodium (Singulair -) 10 mg PO HS [facility] Last Admin: 07/28/17 21:35 Dose: 10 mg Morphine Sulfate (Morphine Injection -) 1 mg IVPUSH Q4H PRN PRN Reason: PAIN LEVEL 1-5 Last Admin: 07/29/17 09:59 Dose: 1 mg Pantoprazole Sodium (Protonix -) 40 mg PO DAILY [facility] Last Admin: 07/29/17 09:55 Dose: Not Given Tiotropium [place] (Spiriva -) 1 puff IH DAILY [facility] Last Admin: 07/29/17 09:54 Dose: 1 puff A/P Acute Asthma Exacerbation - will increase medrol - inhaled bronchodilators - singulair - monitor peak flow - continue xolair as outpt
--- NOTE | 2017-07-29 14:21 | PN ---
Physical Exam: SUBJECTIVE: Patient seen and examined. pt with worsening chest tightness and cough. Sitting upright in chair OBJECTIVE: Vital Signs Period Temp Pulse Resp BP Sys/Avelar Pulse Ox Last 24 Hr 97.7 F-98.4 F 75-101 18-18 120-147/67-87 95-97 PE Neuro: alert, awake, cn 2-12intact Pulm: poor airway entry, diminished + cough CV: s1 s2 rrr no mrg Abd: s nt nt + bs Ext: warm, no le edema Active Medications Generic Name Dose Route Start Last Admin Trade Name Freq PRN Reason Stop Dose Admin Acetaminophen 650 mg 07/27/17 20:30 07/28/17 01:47 Tylenol - PO 650 mg Q6H PRN Administration PAIN LEVEL 6-10 Albuterol Sulfate 1 amp 07/28/17 14:15 07/29/17 13:00 Ventolin 0.083% Nebulizer Soln - NEB 1 amp Q4HWA TODD Administration Diphenhydramine HCl 25 mg 07/28/17 22:00 07/28/17 21:35 Benadryl - PO 25 mg HS TODD Administration Guaifenesin/Codeine Phosphate 10 ml 07/28/17 14:06 07/29/17 09:54 Robitussin Ac - PO 10 ml Q6H PRN Administration COUGH Methylprednisolone Sodium Succinate 60 mg 07/29/17 18:00 Solu-Medrol - IVPUSH Q8H-IV TODD Methylprednisolone Sodium Succinate 20 mg 07/29/17 14:30 Solu-Medrol - IVPB 07/29/17 14:31 ONCE ONE Montelukast Sodium 10 mg 07/27/17 22:00 07/28/17 21:35 Singulair - PO 10 mg HS TODD Administration Morphine Sulfate 1 mg 07/28/17 14:06 07/29/17 09:59 Morphine Injection - IVPUSH 1 mg Q4H PRN Administration PAIN LEVEL 1-5 Pantoprazole Sodium 40 mg 07/28/17 10:00 07/29/17 09:55 Protonix - PO Not Given DAILY TODD Tiotropium [place] 1 puff 07/28/17 10:00 07/29/17 09:54 Spiriva - IH 1 puff DAILY TODD Administration Assessment: 41 year old female with PMHx of asthma admitted with increased shortness of breath. Plan: 1. Acute on chronic asthma exacerbation - Chest tightness worse today - Increase medrol 60mg q8h - Albuterol nebs - Stop Symbicort, pt has adverse rxn to that, takes dulera, NF here - Continue Spiriva - Continue Singulair - Continue Protonix - D/w pulm 2. Prophylaxis - Lovenox sq CODE STATUS: FULL CODE Visit type - Emergency Visit Emergency Visit: Yes ED Registration Date: 07/27/17 Care time: The patient presented to the Emergency Department on the above date and was hospitalized for further evaluation of their emergent condition. - New Patient This patient is new to me today: No - Critical Care Critical Care patient: No
[2017-07-29] MEDS ORDERED: methylPREDNISolone NA SUCC 40 MG/1 ML VIAL IVPB ONE (14:30)
[2017-07-29] MEDS: MONTELUKAST NA 10 MG TABLET PO SCH (22:18)
[2017-07-29] MEDS: diphenhydrAMINE HCL 25 MG CAPSULE (FP) PO SCH (22:18)
[2017-07-29] MEDS: ACETAMINOPHEN 325 MG TABLET (FP) PO PRN (22:19)
[2017-07-30] MEDS: methylPREDNISolone NA SUCC 40 MG/1 ML VIAL IVPUSH SCH ×3 (02:51→18:46)
[2017-07-30] MEDS: ALBUTEROL SO4 0.083% IH SOL 2.5 MG/3 ML VIAL.NEB. NEB SCH ×4 (09:45→21:32)
[2017-07-30] MEDS: morphine CARPU-JECT 2 MG/1 ML DISP.SYRIN IVPUSH PRN (09:47)
[2017-07-30] MEDS: PANTOPRAZOLE 40 MG TABLET (FP) PO SCH ×2 (09:49→15:41)
[2017-07-30] MEDS: TIOTROPIUM BROMIDE 18 MCG CAPSULES IH SCH (09:56)
[2017-07-30 11:44] LABS: BASO % 0.1 % (0-2.0); HEMATOCRIT 43.3 % (32.4-45.2); HEMOGLOBIN 14.4 GM/dL (10.7-15.3); LYMPH % 6.3 % (8-40); MCH 29.7 pg (25.7-33.7); MCHC 33.2 g/dl (32.0-36.0); MEAN CELL VOLUME 89.3 fl (80-96); MEAN PLT VOLUME 8.1 fl (7.5-11.1); MONO % 5.8 % (3.8-10.2); NEUT % 87.8 % (42.8-82.8); PLATELET COUNT 386 K/MM3 (134-434); RBC 4.85 M/mm3 (3.60-5.2); RDW 14.3 % (11.6-15.6); WHITE BLOOD COUNT 17.4 K/mm3 (4.0-10.0)
--- NOTE | 2017-07-30 11:46 | PN ---
Progress Note (short form) - Note Progress Note: OOB to chair on RA. Breathing feels a little better today with the increase in Medrol yesterday. No acute events overnight. PEF not yet measured today. Intake & Output 07/27/17 07/28/17 07/29/17 07/30/17 23:59 23:59 23:59 23:59 Intake Total 438 966 7963 180 Balance 431 354 6273 180 Weight 200 lb Last Vital Signs Temp Pulse Resp BP Pulse Ox 97.8 F 82 22 144/83 98 07/29/17 18:00 07/30/17 10:00 07/30/17 10:00 07/30/17 10:00 07/30/17 10:00 Active Medications Acetaminophen (Tylenol -) 650 mg PO Q6H PRN PRN Reason: PAIN LEVEL 6-10 Last Admin: 07/29/17 22:19 Dose: 650 mg Albuterol Sulfate (Ventolin 0.083% Nebulizer Soln -) 1 amp NEB Q4HWA [facility] Last Admin: 07/30/17 09:45 Dose: 1 amp Diphenhydramine HCl (Benadryl -) 25 mg PO [facility] Last Admin: 07/29/17 22:18 Dose: 25 mg Enoxaparin Sodium (Lovenox -) 40 mg SQ DAILY [facility] Guaifenesin/Codeine Phosphate (Robitussin Ac -) 10 ml PO Q6H PRN PRN Reason: COUGH Last Admin: 07/29/17 18:19 Dose: 10 ml Methylprednisolone Sodium Succinate (Solu-Medrol -) 60 mg IVPUSH Q8H-IV [facility] Last Admin: 07/30/17 09:48 Dose: 60 mg Montelukast Sodium (Singulair -) 10 mg PO [facility] Last Admin: 07/29/17 22:18 Dose: 10 mg Morphine Sulfate (Morphine Injection -) 1 mg IVPUSH Q4H PRN PRN Reason: PAIN LEVEL 1-5 Last Admin: 07/30/17 09:47 Dose: 1 mg Pantoprazole Sodium (Protonix -) 40 mg PO DAILY [facility] Last Admin: 07/30/17 09:49 Dose: Not Given Tiotropium [place] (Spiriva -) 1 puff IH DAILY [facility] Last Admin: 07/30/17 09:56 Dose: 1 puff Gen: Mildly tachypneic at rest Heart: RRR Lung: Scattered bilateral expiratory wheezes Abd: soft, nontender Ext: no edema A/P Acute Asthma Exacerbation Should R/O OSAS after discharge - Medrol at same dose - inhaled bronchodilators - singulair - monitor peak flow - continue xolair as outpt - If better and PEF improved, may be able to change to Prednisone and D/C planning Dr Frey
[2017-07-30 12:56] LABS: ALBUMIN 3.5 g/dl (3.4-5.0); ANION GAP 8 (8-16); BLOOD UREA NITROGEN 16 mg/dL (7-18); CALCIUM 9.2 mg/dL (8.5-10.1); CHLORIDE 102 mmol/L (98-107); CO2 28 mmol/L (21-32); GLUCOSE,RANDOM 114 mg/dL (74-106); MAGNESIUM 2.3 mg/dL (1.8-2.4); POTASSIUM 3.9 mmol/L (3.5-5.1); SODIUM 138 mmol/L (136-145)
[2017-07-30 13:00] LABS: ALK PHOS 82 U/L (45-117); BILIRUBIN,TOTAL 0.3 mg/dL (0.2-1.0); CREATININE 0.7 mg/dL (0.55-1.02); SGOT/AST 14 U/L (15-37); SGPT/ALT 33 U/L (12-78); TOT PROT 7.4 g/dl (6.4-8.2)
[2017-07-30] MEDS ORDERED: morphine SULFATE 4 MG/ML VIAL IVPUSH ONE (13:15)
[2017-07-30] MEDS ORDERED: ENOXAPARIN NA (PORCINE) 40 MG/0.4 ML DISP.SYRIN SQ SCH (15:00)
--- NOTE | 2017-07-30 15:28 | PN ---
Physical Exam: SUBJECTIVE: Patient seen and examined at the bedside. Denies chest pain, but has muscular pain with coughing. OBJECTIVE: Vital Signs Period Temp Pulse Resp BP Sys/Avelar Pulse Ox Last 24 Hr 97.8 F-98.4 F 75-82 22-22 140-146/80-83 95-98 GENERAL: The patient is awake, alert, and fully oriented, in no acute distress. HEAD: Normal with no signs of trauma. EYES: PERRL, extraocular movements intact, sclera anicteric, conjunctiva clear. No ptosis. ENT: Ears normal, nares patent, oropharynx clear without exudates, moist mucous membranes. NECK: Trachea midline, full range of motion, supple. LUNGS: diminished bilaterally, tolerating room air HEART: Regular rate and rhythm, S1, S2 without murmur, rub or gallop. ABDOMEN: Soft, nontender, nondistended, normoactive bowel sounds, no guarding, no rebound, no hepatosplenomegaly, no masses. EXTREMITIES: 2+ pulses, warm, well-perfused, no edema. NEUROLOGICAL: Cranial nerves II through XII grossly intact. Normal speech, gait not observed. PSYCH: Normal mood, normal affect. SKIN: Warm, dry, normal turgor, no rashes or lesions noted Laboratory Results - last 24 hr 07/30/17 07/30/17 10:43 10:43 WBC 17.4 H RBC 4.85 Hgb 14.4 Hct 43.3 MCV 89.3 MCH 29.7 MCHC 33.2 RDW 14.3 Plt Count 386 MPV 8.1 Absolute Neuts (auto) 15.3 Neutrophils % 87.8 H Lymphocytes % 6.3 L D Monocytes % 5.8 D Eosinophils % 0.0 Basophils % 0.1 Nucleated RBC % 0 Sodium 138 Potassium 3.9 Chloride 102 Carbon Dioxide 28 Anion Gap 8 BUN 16 Creatinine 0.7 Creat Clearance w eGFR > 60 Random Glucose 114 H Calcium 9.2 Magnesium 2.3 Total Bilirubin 0.3 D AST 14 L ALT 33 Alkaline Phosphatase 82 Total Protein 7.4 Albumin 3.5 Active Medications Generic Name Dose Route Start Last Admin Trade Name Freq PRN Reason Stop Dose Admin Acetaminophen 650 mg 07/27/17 20:30 07/29/17 22:19 Tylenol - PO 650 mg Q6H PRN Administration PAIN LEVEL 6-10 Albuterol Sulfate 1 amp 07/28/17 14:15 07/30/17 14:27 Ventolin 0.083% Nebulizer Soln - NEB 1 amp Q4HWA TODD Administration Diphenhydramine HCl 25 mg 07/28/17 22:00 07/29/17 22:18 Benadryl - PO 25 mg HS TODD Administration Guaifenesin/Codeine Phosphate 10 ml 07/28/17 14:06 07/29/17 18:19 Robitussin Ac - PO 10 ml Q6H PRN Administration COUGH Methylprednisolone Sodium Succinate 60 mg 07/29/17 18:00 07/30/17 09:48 Solu-Medrol - IVPUSH 60 mg Q8H-IV TODD Administration Montelukast Sodium 10 mg 07/27/17 22:00 07/29/17 22:18 Singulair - PO 10 mg HS TODD Administration Morphine Sulfate 1 mg 07/30/17 12:22 Morphine Sulfate IVPUSH Q4H PRN PAIN LEVEL 1-5 Pantoprazole Sodium 40 mg 07/28/17 10:00 07/30/17 09:49 Protonix - PO Not Given DAILY TODD Tiotropium [place] 1 puff 07/28/17 10:00 07/30/17 09:56 Spiriva - IH 1 puff DAILY TODD Administration ASSESSMENT/PLAN: Patient is a 41 year old female with a history of asthma who prsents to the ED on 07/29/17 with acute asthma exacerbation and now found to have a UTI. Acute on chronic asthma exacerbation Tolerating room air, much improved. On Solumedrol taper. Chest muscular tightness improving. On albuterol nebs. On protonix, singular. UTI, UC shows strep agalactiae grp b, start on levaquin. F.E.N Toleratign PO Monitor lytes Low salt diet full preet Visit type - Emergency Visit Emergency Visit: Yes ED Registration Date: 07/29/17 Care time: The patient presented to the Emergency Department on the above date and was hospitalized for further evaluation of their emergent condition. - New Patient This patient is new to me today: Yes Date on this admission: 07/30/17 - Critical Care Critical Care patient: No - Discharge Referral Referred to [facility] No
[2017-07-30] MEDS: ACETAMINOPHEN 325 MG TABLET (FP) PO PRN (21:18)
[2017-07-30] MEDS: MONTELUKAST NA 10 MG TABLET PO SCH (21:18)
[2017-07-30] MEDS: diphenhydrAMINE HCL 25 MG CAPSULE (FP) PO SCH (21:19)
[2017-07-30] MEDS: morphine SULFATE 4 MG/ML VIAL IVPUSH PRN (22:08)
[2017-07-31] MEDS: methylPREDNISolone NA SUCC 40 MG/1 ML VIAL IVPUSH SCH ×3 (01:21→17:05)
[2017-07-31] MEDS: ALBUTEROL SO4 0.083% IH SOL 2.5 MG/3 ML VIAL.NEB. NEB SCH ×5 (06:51→21:02)
[2017-07-31 07:10] LABS: BASO % 0.2 % (0-2.0); HEMATOCRIT 41.8 % (32.4-45.2); HEMOGLOBIN 14.1 GM/dL (10.7-15.3); LYMPH % 6.5 % (8-40); MCH 29.9 pg (25.7-33.7); MCHC 33.7 g/dl (32.0-36.0); MEAN CELL VOLUME 88.7 fl (80-96); MEAN PLT VOLUME 7.8 fl (7.5-11.1); MONO % 4.7 % (3.8-10.2); NEUT % 88.6 % (42.8-82.8); PLATELET COUNT 358 K/MM3 (134-434); RBC 4.72 M/mm3 (3.60-5.2); WHITE BLOOD COUNT 12.9 K/mm3 (4.0-10.0)
[2017-07-31 07:46] LABS: ALBUMIN 3.1 g/dl (3.4-5.0); ALK PHOS 73 U/L (45-117); ANION GAP 9 (8-16); BLOOD UREA NITROGEN 14 mg/dL (7-18); CHLORIDE 104 mmol/L (98-107); CO2 26 mmol/L (21-32); CREATININE 0.7 mg/dL (0.55-1.02); GLUCOSE,RANDOM 127 mg/dL (74-106); MAGNESIUM 2.3 mg/dL (1.8-2.4); POTASSIUM 4.1 mmol/L (3.5-5.1); SGOT/AST 9 U/L (15-37); SGPT/ALT 32 U/L (12-78); SODIUM 139 mmol/L (136-145); TOT PROT 6.8 g/dl (6.4-8.2)
[2017-07-31 07:47] LABS: BILIRUBIN,TOTAL 0.5 mg/dL (0.2-1.0)
--- NOTE | 2017-07-31 09:09 | PN ---
Physical Exam: SUBJECTIVE: Patient seen and examined. She feels tired today, chest tightness remains, however less cough. Laying flat stable OBJECTIVE: Vital Signs Period Temp Pulse Resp BP Sys/Avelar Pulse Ox Last 24 Hr 97.4 F-98.4 F 65-88 22-22 136-150/69-89 97-98 PE Neuro: alert, awake, cn 2-12intact Pulm: shallow breath, clear, tight CV: s1 s2 rrr no mrg Abd: s nt nt + bs Ext: warm, no le edema Laboratory Results - last 24 hr 07/30/17 07/30/17 07/31/17 10:43 10:43 06:35 WBC 17.4 H 12.9 H RBC 4.85 4.72 Hgb 14.4 14.1 Hct 43.3 41.8 MCV 89.3 88.7 MCH 29.7 29.9 MCHC 33.2 33.7 RDW 14.3 14.0 Plt Count 386 358 MPV 8.1 7.8 Absolute Neuts (auto) 15.3 11.5 Neutrophils % 87.8 H 88.6 H Lymphocytes % 6.3 L D 6.5 L Monocytes % 5.8 D 4.7 Eosinophils % 0.0 0.0 Basophils % 0.1 0.2 Nucleated RBC % 0 0 Sodium 138 Potassium 3.9 Chloride 102 Carbon Dioxide 28 Anion Gap 8 BUN 16 Creatinine 0.7 Creat Clearance w eGFR > 60 Random Glucose 114 H Calcium 9.2 Magnesium 2.3 Total Bilirubin 0.3 D AST 14 L ALT 33 Alkaline Phosphatase 82 Total Protein 7.4 Albumin 3.5 07/31/17 06:35 WBC RBC Hgb Hct MCV MCH MCHC RDW Plt Count MPV Absolute Neuts (auto) Neutrophils % Lymphocytes % Monocytes % Eosinophils % Basophils % Nucleated RBC % Sodium 139 Potassium 4.1 Chloride 104 Carbon Dioxide 26 Anion Gap 9 BUN 14 Creatinine 0.7 Creat Clearance w eGFR > 60 Random Glucose 127 H Calcium 9.0 Magnesium 2.3 Total Bilirubin 0.5 D AST 9 L ALT 32 Alkaline Phosphatase 73 Total Protein 6.8 Albumin 3.1 L Active Medications Generic Name Dose Route Start Last Admin Trade Name Freq PRN Reason Stop Dose Admin Acetaminophen 650 mg 07/27/17 20:30 07/30/17 21:18 Tylenol - PO 650 mg Q6H PRN Administration PAIN LEVEL 6-10 Albuterol Sulfate 1 amp 07/28/17 14:15 07/31/17 06:51 Ventolin 0.083% Nebulizer Soln - NEB 1 amp Q4HWA TODD Administration Diphenhydramine HCl 25 mg 07/28/17 22:00 07/30/17 21:19 Benadryl - PO 25 mg HS TODD Administration Guaifenesin/Codeine Phosphate 10 ml 07/28/17 14:06 07/29/17 18:19 Robitussin Ac - PO 10 ml Q6H PRN Administration COUGH Methylprednisolone Sodium Succinate 60 mg 07/29/17 18:00 07/31/17 01:21 Solu-Medrol - IVPUSH 60 mg Q8H-IV TODD Administration Montelukast Sodium 10 mg 07/27/17 22:00 07/30/17 21:18 Singulair - PO 10 mg HS TODD Administration Morphine Sulfate 1 mg 07/30/17 12:22 07/30/17 22:08 Morphine Sulfate IVPUSH 1 mg Q4H PRN Administration PAIN LEVEL 1-5 Pantoprazole Sodium 40 mg 07/28/17 10:00 07/30/17 15:41 Protonix - PO 40 mg DAILY TODD Administration Tiotropium [place] 1 puff 07/28/17 10:00 07/30/17 09:56 Spiriva - IH 1 puff DAILY TODD Administration Assessment: 41 year old female with PMHx of asthma admitted with increased shortness of breath. Plan: 1. Acute on chronic asthma exacerbation - Chest tightness remains, obtain PFTs today - Keep medrol dose 60mg q8, if improved tomorrow can dc home prednisone - Albuterol nebs - Stop Symbicort, pt has adverse rxn to that, takes dulisacc, NF here - Continue Spiriva - Continue Singulair - Continue Protonix - D/w pulm 2. Prophylaxis - Lovenox sq CODE STATUS: FULL CODE Visit type - Emergency Visit Emergency Visit: Yes ED Registration Date: 07/29/17 Care time: The patient presented to the Emergency Department on the above date and was hospitalized for further evaluation of their emergent condition. - New Patient This patient is new to me today: No - Critical Care Critical Care patient: No
[2017-07-31] MEDS: PANTOPRAZOLE 40 MG TABLET (FP) PO SCH (10:35)
[2017-07-31] MEDS: guaiFENesin/CODEINE 10 ML UNIT-DOSE CUPS PO PRN ×2 (10:35→17:05)
[2017-07-31] MEDS: TIOTROPIUM BROMIDE 18 MCG CAPSULES IH SCH (10:35)
[2017-07-31] MEDS: morphine SULFATE 4 MG/ML VIAL IVPUSH PRN ×3 (10:36→21:33)
--- NOTE | 2017-07-31 11:57 | PN ---
Progress Note (short form) - Note Progress Note: PULMONARY OOB TO CHAIR WANTS TO GO HOME VSS ANICTERIC B/L CLEAR LUNG [place] S1S2 OBESE NO EDEMA PEAK FLOW 270L/M MEDS/LABS/IMAGES/NOTES REVIEWED A/P Acute Asthma Exacerbation R/O OSAS after discharge - Medrol tapered - inhaled bronchodilators - singulair - monitor peak flow - continue xolair as outpt - D/C planning for AM Gen LEÓN MD
[2017-07-31] MEDS: diphenhydrAMINE HCL 25 MG CAPSULE (FP) PO SCH (21:31)
[2017-07-31] MEDS: MONTELUKAST NA 10 MG TABLET PO SCH (21:31)
[2017-07-31 23:09] VITALS: TEMP 97.8
[2017-08-01] MEDS: methylPREDNISolone NA SUCC 40 MG/1 ML VIAL IVPUSH SCH (02:06)
[2017-08-01] MEDS: ALBUTEROL SO4 0.083% IH SOL 2.5 MG/3 ML VIAL.NEB. NEB SCH ×2 (06:45→08:30)
--- NOTE | 2017-08-01 09:24 | PN ---
Progress Note (short form) - Note Progress Note: PULMONARY OOB TO CHAIR WANTS TO GO HOME VSS ANICTERIC B/L CLEAR LUNG [place] S1S2 OBESE NO EDEMA PEAK FLOW 300L/M MEDS/LABS/IMAGES/NOTES REVIEWED A/P Acute Asthma Exacerbation resolved R/O OSAS after discharge - Medrol changed to prednisone - inhaled bronchodilators - singulair - continue xolair as outpt - D/C planning for today R MAU MARTÍNEZ
[2017-08-01] MEDS: PANTOPRAZOLE 40 MG TABLET (FP) PO SCH (09:56)
[2017-08-01] MEDS: TIOTROPIUM BROMIDE 18 MCG CAPSULES IH SCH (09:56)
[2017-08-01] MEDS ORDERED: predniSONE 20 MG TABLET (UD) PO SCH (10:00)
[2017-08-01 10:11] VITALS: BP 142/80; PULSE 76
--- NOTE | 2017-08-01 10:21 | DS ---
Physical Exam: SUBJECTIVE: Patient seen and examined. She is feeling much better today, less chest tightness, wants to rest at home. OBJECTIVE: Vital Signs Period Temp Pulse Resp BP Sys/Avelar Pulse Ox Last 24 Hr 97.8 F-98.2 F 67-76 20-22 131-147/69-95 97-97 PE Neuro: alert, awake, cn 2-12intact Pulm: improved inhalation, no wheezing no cough CV: s1 s2 rrr no mrg Abd: s nt nt + bs Ext: warm, no le edema HOSPITAL COURSE: Date of Admission:07/29/17 Date of Discharge: 08/01/17 Minutes to complete discharge: 37 Discharge Summary Reason For Visit: ASTHMA WITH ACUTE EXACERBATION Current Active Problems Asthma exacerbation (Acute) Hospital Course: Initial Hospital Course/Progress Note/DC summary: Briefly, this 41 year old female with PMHx of asthma presented to the ED with increased shortness of breath. The patient reported 1 week she had a sore throat which resolved after one day, then she developed a cold. The cold went away within 1-2 days and then about 2 days ago she developed a dry cough. She reported having increased in chest tightness and difficulty breathing and at 4am she woke up because she was unable to breath. She states she used her nebulizer and felt slightly better. Assessment: 41 year old female with PMHx of asthma admitted with increased shortness of breath. Plan: 1. Acute on chronic asthma exacerbation - Improved with IV steroids - Home with prednisone taper - Resume home meds/inhalers - Pulm follow up after taper 2. Asymptomatic bacturia - Positive uti cx noted - Pt asymptomatic, likely colonized, not , no further infectious signs - Will hold on treatment at this time Dispo: - Home with above meds, plan, and follow up - Pt aware and agrees to above plan Condition: Stable - Instructions Diet, Activity, Other Instructions: Please return to the ED for any new, persistent, or worsening symptoms. Follow up with your PCP in 1 week follow up with Dr. Prado when complete steroid taper Continue meds as directed Continue steroid taper as directed and until completed Referrals: Claude Baeza MD [Primary Care Provider] - Fernando Prado MD, MD [Staff Physician] - Disposition: HOME - Home Medications Comprehensive Discharge Medication List: Ambulatory Orders Albuterol Sulfate Inhaler - [Ventolin HFA Inhaler -] 2 inh PO Q4H PRN 07/20/15 Tiotropium [place] [Spiriva] 1 inh PO DAILY 07/20/15 Omalizumab [Xolair -] 0 mg SQ Q30D 08/27/16 Montelukast Na [Singulair -] 10 mg PO HS #30 tablet 08/29/16 Pantoprazole Sodium [Protonix -] 40 mg PO DAILY #14 tablet 08/29/16 Mometasone/Formoterol [Dulera 100 Mcg/5 Mcg Inhaler] 2 inh IH BID 07/28/17 Prednisone 10 mg PO DAILY #30 tablet 08/01/17 - Discharge Referral Referred to [facility] No
== END 2017-08-01 12:23 | disposition home or self-care (01) | DRG 202 ==
LOC: JERFT 10:18 → JER 10:18 → JERBED 17:05 → J5S 18:06 → OBSVTOIN 07-29 17:44
PROVIDERS: ADMIT Hospitalist; ATTEND Nurse Practitioner Acute Care
DX: J45.901 Unspecified asthma with (acute) exacerbation (principal); N39.0 Urinary tract infection, site not specified; B95.1 Streptococcus, group B, as the cause of diseases classified elsewhere; R06.02 Shortness of breath
CPT/HCPCS: 36415; 71046-TC-FY; 80053; 81003; 81015; 83735; 84703; 85025; 85027; 87086; 87186; 94010; 94150; 94640; 99284-25; G0378; J7620

== ENCOUNTER 2017-09-14 16:01 | Day surgery (SDC) | payer OTHER ==
[2017-09-14] MEDS ORDERED: EPINEPHrine/PF 1 MG/1 ML (1:1,000) AMPULE SQ PRN (16:36)
[2017-09-14] MEDS ORDERED: OMALIZUMAB 150 MG/VIAL ML SQ ONE (16:45)
[2017-09-14 17:56] VITALS: BP 131/90; PULSE 94; TEMP 98.3
== END 2017-09-14 17:25 | disposition home or self-care (01) ==
LOC: JINFUSION 16:01 → J7W 16:02 → JINFUSION 17:25
PROVIDERS: ATTEND Internal Medicine
PROC: 3E013GC Introduction of Other Therapeutic Substance into Subcutaneous Tissue, Percutaneous Approach (ICD-10-PCS; principal; 2017-09-14)
DX: J45.50 Severe persistent asthma, uncomplicated (principal)
CPT/HCPCS: 96372; J2357

== ENCOUNTER 2017-09-25 14:21 | Emergency (ER) | payer OTHER ==
--- NOTE | 2017-09-25 14:39 | PDOC ---
Rapid Medical Evaluation Time Seen by Provider: 09/25/17 14:36 Medical Evaluation: Allergies Allergy/AdvReac Type Severity Reaction Status Date / Time shellfish derived Allergy SWELLING, Verified 09/25/17 14:35 DIFFICULTY BREATHING, ITCHING iv contrast Allergy Uncoded 09/25/17 14:35 09/25/17 14:36 I have performed a brief in-person evaluation of this patient. The patient presents with a chief complaint of: LUQ/LLQ pain today w/ +nausea, no vomiting. Also c/o grayish, malodorous vag dc x 3 days. H/o STD in childhood. Sexually active w/ longtime male partner. Endorses h/o chronic constipation relieved w/ probiotics OTC. Currently taking same. No BRBPR, melena , f/c, dysuria. Pertinent physical exam findings:stable w/ +ttp to LUQ and LLQ I have ordered the following:ua/cx/std/preg/labs The patient will proceed to the ED for further evaluation. 09/25/17 14:41 Discharge Disposition - Diagnosis Abdominal pain Qualifiers: Abdominal location: unspecified location Qualified Code(s): R10.9 - Unspecified abdominal pain - Referrals Referrals: Claude Baeza MD [Primary Care Provider] - - Patient Instructions - Post Discharge Activity
[2017-09-25 14:45] VITALS: BMI 39.0
[2017-09-25 15:25] LABS: HCG,QUALITATIVE URINE NEGATIVE
[2017-09-25 15:30] LABS: URINE APPEARANCE CLEAR; URINE BILIRUBIN NEGATIVE (<2.0 mg/dL); URINE COLOR YELLOW; URINE GLUCOSE (UA) NEGATIVE (NEGATIVE); URINE KETONE NEGATIVE (NEGATIVE); URINE LEUK ESTERASE TRACE (NEGATIVE); URINE NITRITE NEGATIVE (NEGATIVE); URINE PROTEIN NEGATIVE (NEGATIVE)
[2017-09-25 15:37] LABS: EPI CELLS MODERATE /HPF (FEW); URINE MUCUS MODERATE
[2017-09-25 16:49] LABS: BASO % 1.1 % (0-2.0); EOS % 1.3 % (0-4.5); HEMATOCRIT 41.4 % (32.4-45.2); HEMOGLOBIN 13.8 GM/dL (10.7-15.3); LYMPH % 26.9 % (8-40); MCHC 33.3 g/dl (32.0-36.0); MEAN CELL VOLUME 90.2 fl (80-96); MEAN PLT VOLUME 7.6 fl (7.5-11.1); MONO % 8.4 % (3.8-10.2); NEUT % 62.3 % (42.8-82.8); PLATELET COUNT 348 K/MM3 (134-434); RDW 14.1 % (11.6-15.6); WHITE BLOOD COUNT 8.2 K/mm3 (4.0-10.0)
[2017-09-25 17:17] LABS: ALBUMIN 3.6 g/dl (3.4-5.0); ALK PHOS 74 U/L (45-117); ANION GAP 8 (8-16); BILIRUBIN,TOTAL 0.3 mg/dL (0.2-1.0); BLOOD UREA NITROGEN 10 mg/dL (7-18); CALCIUM 8.6 mg/dL (8.5-10.1); CHLORIDE 112 mmol/L (98-107); CO2 25 mmol/L (21-32); CREATININE 0.6 mg/dL (0.55-1.02); GLUCOSE,RANDOM 98 mg/dL (74-106); POTASSIUM 4.1 mmol/L (3.5-5.1); SGOT/AST 14 U/L (15-37); SGPT/ALT 23 U/L (12-78); SODIUM 145 mmol/L (136-145); TOT PROT 6.5 g/dl (6.4-8.2)
[2017-09-25] MEDS ORDERED: FAMOTIDINE 20 MG/50 ML IVPB 20 MG/50 ML MG IVPB ONE ×2 (17:32→17:48)
[2017-09-25] MEDS ORDERED: MAG HYDROX/AL HYDROX/SIMETH 30 ML UNIT-DOSE CUP PO ONE (17:32)
[2017-09-25] MEDS ORDERED: ACETAMINOPHEN 1000 MG/100 ML VIAL (NON FORMULARY) IVPB ONE (17:32)
[2017-09-25] MEDS ORDERED: MAG HYDROX/AL HYDROX/SIMETH 30 ML UNIT-DOSE CUP ONE ×2 (17:47→17:48)
[2017-09-25] MEDS ORDERED: ACETAMINOPHEN INJECTION 100 ML IVPB ONE (17:47)
[2017-09-25] MEDS ORDERED: metroNIDAZOLE 500 MG TABLET PO ONE (18:05)
--- NOTE | 2017-09-25 18:17 | PDOC ---
History of Present Illness - General Chief Complaint: Pain, Acute Stated Complaint: ABD PAIN Time Seen by Provider: 09/25/17 14:36 - History of Present Illness Initial Comments: 09/25/17 18:11 "The patient is a 41 year old female with a past medical history of PID, multiple UTIs, asthma, chronic constipation (relieved w/ OTC probiotics) and HLD who presents to the emergency department for evaluation of abdominal and pelvic pain. The patient reports a 1 week history of worsening abdominal pain localized to the epigastric and suprapubic regions. She describes the pain as constant, dull, ranked 8/10 in severity, and exacerbated with eating food. Pt states that she has chronic epigastric pain that she manages with omeprazole. Denies any changes in this. However, patient also reports a 1 week history of suprapubic and pelvic pain that acutely worsened over the past 2 days. Pt also reports associated de la cruz malodorous vaginal discharge discharge. She describes the pelvic pain as sharp, radiating to her lower back, ranked 10/10 in severity. Pt reports taking naproxen with alleviation to her pain, but notes it wears off quickly. She states she has been sexually active w/ a longtime male partner. Does not use protection. The patient denies recent travel, cp, sob, dizziness, fever, chills, diarrhea, dysuria, melena, and any urinary incontinence. Allergies: shellfish derived, IV contrast Social History: Former smoker. No reported alcohol or drug use. Surgical History: Appendectomy (1985) PCP: Dr. Baeza " Past History - Past Medical History Allergies/Adverse Reactions: Allergies Allergy/AdvReac Type Severity Reaction Status Date / Time shellfish derived Allergy SWELLING, Verified 09/25/17 14:35 DIFFICULTY BREATHING, ITCHING iv contrast Allergy Uncoded 09/25/17 14:35 Home Medications: Ambulatory Orders Albuterol Sulfate Inhaler - [Ventolin HFA Inhaler -] 2 inh PO Q4H PRN 07/20/15 Tiotropium [place] [Spiriva] 1 inh PO DAILY 07/20/15 Omalizumab [Xolair -] 0 mg SQ Q30D 08/27/16 Montelukast Na [Singulair -] 10 mg PO HS #30 tablet 08/29/16 Pantoprazole Sodium [Protonix -] 40 mg PO DAILY #14 tablet 08/29/16 Mometasone/Formoterol [Dulera 100 Mcg/5 Mcg Inhaler] 2 inh IH BID 07/28/17 Prednisone 10 mg PO DAILY #30 tablet 08/01/17 Omeprazole 20 mg PO DAILY #30 tablet. 09/25/17 metroNIDAZOLE [Flagyl -] 500 mg PO BID #14 tablet 09/25/17 Anemia: No Asthma: Yes Cancer: No Cardiac Disorders: No CVA: No COPD: No CHF: No Dementia: No Diabetes: No GI Disorders: No Disorders: No HTN: No Hypercholesterolemia: Yes Liver Disease: No Seizures: No Thyroid Disease: No - Surgical History Abdominal Surgery: No Appendectomy: Yes Cardiac Surgery: No Cholecystectomy: No Lung Surgery: No Neurologic Surgery: No Orthopedic Surgery: No - Immunization History Immunization Up to Date: Yes - Suicide/Smoking/Psychosocial Hx Smoking Status: Yes Smoking History: Former smoker Have you smoked in the past 12 months: No Number of Cigarettes Smoked Daily: 1 If you are a former smoker, when did you quit?: 07/2013 Cigars Per Day: 1 Information on smoking cessation initiated: No 'Breaking Loose' booklet given: 07/28/13 Hx Alcohol Use: No Drug/Substance Use Hx: No Substance Use Type: None Hx Substance Use Treatment: No Review of Systems - Review of Systems Comments:: 09/25/17 18:13 "GENERAL/CONSTITUTIONAL: No fever or chills. No weakness. HEAD, EYES, EARS, NOSE AND THROAT: No change in vision. No ear pain or discharge. No sore throat. CARDIOVASCULAR: No chest pain or shortness of breath. RESPIRATORY: No cough, wheezing, or hemoptysis. GASTROINTESTINAL: (+) epigastric pain, No N/V, No diarrhea. GENITOURINARY: No dysuria, frequency, or change in urination. MUSCULOSKELETAL: (+)Pelvic pain. (+)Abdominal pain. No joint pain. No neck or back pain. SKIN: No rash NEUROLOGIC: No vertigo, loss of consciousness, or change in strength/sensation. ENDOCRINE: No increased thirst. No abnormal weight change. HEMATOLOGIC/LYMPHATIC: No anemia, easy bleeding, or history of blood clots. ALLERGIC/IMMUNOLOGIC: No hives or skin allergy. " *Physical Exam - Vital Signs Last Vital Signs Temp Pulse Resp BP Pulse Ox 98.8 F 100 H 19 154/88 97 09/25/17 14:35 09/25/17 14:35 09/25/17 14:35 09/25/17 14:35 09/25/17 14:35 - Physical Exam Comments: 09/25/17 18:14 "GENERAL: Awake, alert, and fully oriented, in no acute distress. HEAD: No signs of trauma EYES: PERRLA, EOMI, sclera anicteric, conjunctiva clear ENT: Auricles normal inspection, hearing grossly normal, nares patent, oropharynx clear without exudates. Moist mucosa NECK: Nontender, no stepoffs, Normal ROM, supple, no lymphadenopathy, JVD, or masses LUNGS: Breath sounds equal, clear to auscultation bilaterally. No wheezes, and no crackles HEART: Regular rate and rhythm, normal S1 and S2, no murmurs, rubs or gallops ABDOMEN: + epigastric TTP, negative butcher's, + suprapubic TTP : No CMT, + de la cruz vaginal discharge, no adnexal masses or tenderness EXTREMITIES: Normal range of motion, no edema. No clubbing or cyanosis. No cords, erythema, or tenderness NEUROLOGICAL: Cranial nerves II through XII intact. 5/5 strength and sensation in all extremities, Normal speech, normal gait, normal cerebellar function SKIN: Warm, Dry, normal turgor, no rashes or lesions noted." ED Treatment Course - LABORATORY CBC & Chemistry Diagram: 09/25/17 16:15 09/25/17 16:15 - ADDITIONAL ORDERS Additional order review: Laboratory Results 09/25/17 09/25/17 16:15 15:00 Sodium 145 Potassium 4.1 Chloride 112 H Carbon Dioxide 25 Anion Gap 8 BUN 10 Creatinine 0.6 Creat Clearance w eGFR > 60 Random Glucose 98 Calcium 8.6 Total Bilirubin 0.3 AST 14 L ALT 23 Alkaline Phosphatase 74 Total Protein 6.5 Albumin 3.6 Urine Color Yellow Urine Appearance Clear Urine pH 5.0 D Ur Specific [place] 1.031 Urine Protein Negative Urine Glucose (UA) Negative Urine Ketones Negative Urine Blood Negative Urine Nitrite Negative Urine Bilirubin Negative Urine Urobilinogen 2.0 H Ur Leukocyte Esterase Trace Urine WBC (Auto) 14 Urine RBC (Auto) None Ur Epithelial Cells Moderate Urine Mucus Moderate Urine HCG, Qual Negative 09/25/17 16:15 RBC 4.60 MCV 90.2 MCHC 33.3 RDW 14.1 MPV 7.6 Neutrophils % 62.3 D Lymphocytes % 26.9 D Monocytes % 8.4 Eosinophils % 1.3 D Basophils % 1.1 D Medical Decision Making - Medical Decision Making 09/25/17 18:15 41 F with epigastric pain + suprapubic pain and foul de la cruz vaginal discharge. Likely BV. Pt with no CMT to suggest PID. Pt's epigastric pain likely 2/2 gastritivs PUD. Negative butcher's. No indication for RUQ US. No adnexal tenderness to suggest TOA or torsion. - Labs, UA, UPT - GI cocktail - Flagyl for BV 09/25/17 18:43 labs wnl UA with 13 WBCs but pt without dysuria. Likely 2/2 pt's BV. 09/25/17 19:44 Pt reassessed - now feels significantly better. Repeat HR in 80s after fluids. Pt is well appearing, with normal vitals. Clinically stable for DC at this time. I discussed the physical exam findings, ancillary test results and final diagnoses with the patient. I answered all of the patient's questions. The patient was satisfied with the care received and felt comfortable with the discharge plan and treatment plan. The patient agrees to follow up with the primary care physician within 24-72 hours. *DC/Admit/Observation/Transfer Diagnosis at time of Disposition: Bacterial vaginosis, Gastritis Abdominal pain Qualifiers: Abdominal location: unspecified location Qualified Code(s): R10.9 - Unspecified abdominal pain - Discharge Dispostion Disposition: HOME - Prescriptions Prescriptions: metroNIDAZOLE [Flagyl -] 500 mg PO BID #14 tablet Omeprazole 20 mg PO DAILY #30 tablet.dr - Referrals Referrals: Claude Baeza MD [Primary Care Provider] - Kb Ny MD [Staff Physician] - - Patient Instructions Printed Discharge Instructions: DI for Bacterial Vaginosis, DI for Gastritis Additional Instructions: You have an infection called bacterial vaginosis. Take the antibiotics as prescribed to treat this. Your stomach pain may be due to gastritis or stomach ulcers. Continue taking the omeprazole to treat it. Please follow up with a environmental services attendant within 1 week for further evaluation. You may need an endoscopy. Follow up with your broker associate within 1-2 weeks for re-evaluation. If you experience worsening pain, fevers, nausea, vomiting, or any other concerning symptoms, return to the ER immediately. - Post Discharge Activity Forms/Work/School Notes: Back to Work - Attestations Physician Attestion: 09/25/17 18:23 I, Dr. Luciano Yost MD, attest that this document has been prepared under my direction and personally reviewed by me in its entirety. I further attest, that it accurately reflects all work, treatment, procedures and medical decision -making performed by me.
[2017-09-25] MEDS ORDERED: SODIUM CHLORIDE 1,000 ML IV STA (18:24)
[2017-09-25] MEDS ORDERED: metroNIDAZOLE 250 MG TABLET ONE (18:53)
[2017-09-25] MEDS ORDERED: PANTOPRAZOLE SODIUM 40 MG VIAL IVPUSH ONE (19:20)
[2017-09-25] MEDS ORDERED: LIDOCAINE VISCOUS 2% ORAL/TOP 20 ML UNIT-DOSE CUP MM ONE (19:21)
[2017-09-25] MEDS ORDERED: LIDOCAINE VISCOUS 2% ORAL/TOP 20 ML UNIT-DOSE CUP ONE (19:44)
[2017-09-25] MEDS ORDERED: PANTOPRAZOLE SODIUM 40 MG/100 ML BAG IVPB ONE (19:44)
[2017-09-25 20:25] VITALS: BP 127/86; PULSE 84; TEMP 98.5
== END 2017-09-25 20:25 | disposition home or self-care (01) ==
LOC: JER 14:21
PROC: 3E033NZ Introduction of Analgesics, Hypnotics, Sedatives into Peripheral Vein, Percutaneous Approach (ICD-10-PCS; principal; 2017-09-25)
PROC: 3E033GC Introduction of Other Therapeutic Substance into Peripheral Vein, Percutaneous Approach (ICD-10-PCS; 2017-09-25)
PROC: 3E0337Z Introduction of Electrolytic and Water Balance Substance into Peripheral Vein, Percutaneous Approach (ICD-10-PCS; 2017-09-25)
DX: R10.9 Unspecified abdominal pain (principal); N73.9 Female pelvic inflammatory disease, unspecified; K59.09 Other constipation; E78.00 Pure hypercholesterolemia, unspecified; Z87.891 Personal history of nicotine dependence
CPT/HCPCS: 36415; 80053; 81003; 81015; 83690; 84703; 85025; 87086; 99283-25; J0131; J7030

== ENCOUNTER 2017-10-28 05:41 | Day surgery (SDC) | payer OTHER ==
[2017-10-26 15:23] VITALS: BMI 39.0
--- NOTE | 2017-10-28 08:13 | HP ---
Satellite H - Chief Complaint Chief Complaint: right knee pain - Past Medical History Allergies/Adverse Reactions: Allergies Allergy/AdvReac Type Severity Reaction Status Date / Time shellfish derived Allergy SWELLING, Verified 09/25/17 14:35 DIFFICULTY BREATHING, ITCHING iv contrast Allergy Uncoded 09/25/17 14:35 Cardiovascular: Yes: Hyperlipdemia Pulmonary: Yes: Asthma. No: Previously Intubated ...LMP: 10/05/17 - Current Medications Current Medications: Home Medications Medication Instructions Recorded Albuterol Sulfate Inhaler - 2 inh PO Q4H PRN 07/20/15 [Ventolin HFA Inhaler -] Tiotropium [place] [Spiriva] 1 inh PO DAILY 07/20/15 Omalizumab [Xolair -] 0 mg SQ Q30D 08/27/16 Montelukast Na [Singulair -] 10 mg PO HS #30 tablet 08/29/16 Fluticasone/Vilanterol [Breo 1 each IH DAILY 10/26/17 Ellipta 100-25 Mcg INH] Oxycodone HCl/Acetaminophen 1 tab PO Q6H #20 tablet MDD 4 10/28/17 [Percocet 5-325 mg Tablet] Satellite Physical Exam - Physical Examination General Appearance: Well Nourished, Well Developed, Alert & Oriented x3 ENT: Clear Lung: Normal air movement Heart: Regular rate & rhythm Extremities: Other (right knee- + swelling, + ttp, decr rom, + mcmurraysd, nvi MRI + mt) Neurological: Intact, Alert, Oriented Satellite Impression/Plan - Impression/Plan Impression: right knee internal derangement Operative Procedure: right knee arthroscopy Date to be Performed: 10/28/17
[2017-10-28] MEDS ORDERED: MIDAZOLAM HCL 2 MG/2 ML SINGLE DOSE VIAL ONE ×2 (09:57)
[2017-10-28] MEDS ORDERED: BUPIVACAINE HCL/PF 0.25% (2.5MG/ML) 10 ML VIAL ONE (10:02)
[2017-10-28] MEDS ORDERED: SODIUM CHLORIDE 0.9% P/F 10 ML VIAL IJ ONE (10:25)
[2017-10-28] MEDS ORDERED: DEXAMETHASONE SOD PHOSPHATE 4 MG/1 ML VIAL ONE (10:26)
[2017-10-28] MEDS ORDERED: BUPIVACAINE HCL/PF 0.25% (2.5MG/ML) 10 ML VIAL IJ ONE (10:38)
[2017-10-28] MEDS ORDERED: LIDOCAINE 1%/EPI 1:100000 (50 ML MULTI DOSE VIAL) INF ONE (10:38)
[2017-10-28] MEDS ORDERED: PROMETHAZINE HCL 25 MG/1 ML VIAL IVPUSH PRN (11:07)
[2017-10-28] MEDS ORDERED: oxyCODONE HCL 5 MG TABLET PO PRN ×2 (11:07)
[2017-10-28] MEDS ORDERED: ONDANSETRON 4 MG/2 ML VIAL IVPUSH PRN (11:07)
[2017-10-28] MEDS ORDERED: ACETAMINOPHEN 1000 MG/100 ML VIAL (NON FORMULARY) IVPB ONE (11:07)
[2017-10-28] MEDS ORDERED: LACTATED RINGERS SOLUTION 1,000 ML IV SCH (11:15)
[2017-10-28] MEDS ORDERED: ACETAMINOPHEN INJECTION 100 ML IVPB ONE (11:52)
--- NOTE | 2017-10-28 12:41 | OP ---
Operative Note - Note: Operative Date: 10/28/17 ([facility]) Pre-Operative Diagnosis: right knee internal derangement Operation: right knee arthroscopy with PMM Post-Operative Diagnosis: Same as Pre-op Surgeon: Walter Llanes Anesthesiologist/INTERNATIONAL CONTROLLER: Jaylan Valverde Anesthesia: General, Local Specimens Removed: shavings Estimated Blood Loss (mls): 5 Operative Report Dictated: Yes
[2017-10-28] MEDS ORDERED: oxyCODONE HCL 5 MG TABLET ONE (13:11)
[2017-10-28 15:55] VITALS: TEMP 98.2
[2017-10-28 15:59] VITALS: BP 135/80; PULSE 91
--- NOTE | 2017-10-29 06:59 | OP ---
DATE OF OPERATION: 10/28/2017 PREOPERATIVE DIAGNOSIS: Internal derangement right knee. POSTOPERATIVE DIAGNOSIS: Internal derangement right knee, lateral meniscus tear. PROCEDURE: Arthroscopy, right knee, with partial lateral meniscectomy. SURGICAL ATTENDING: Walter Llanes MD ANESTHESIA: General with LMA. CLOSURE: 4-0 nylon. COMPLICATIONS: None. CONDITION: To Recovery in stable condition. DESCRIPTION OF OPERATIVE PROCEDURE: Patient was taken to the operating room on October 28, 2017. General anesthesia with LMA was administered by the anesthesiologist. Right lower extremity was prepped and draped in the usual sterile fashion. The medial and lateral infrapatellar portal sites were infiltrated with 1% Xylocaine with epinephrine. Both portals then made with 15 blade followed by blunt trocar. Scope was placed in the lateral infrapatellar portal and up into the suprapatellar pouch. Knee was inflated with a cocktail of 10 mL of 1% Xylocaine, 10 mL 0.5% Marcaine and 20 mL of arthroscopic saline. After allowing the medication to sit in the knee for about 2-3 minutes, we proceeded with the procedure. The undersurface of the patella and trochlea were visualized to be intact. The medial and lateral gutters were visualized to be intact with no loose bodies. With valgus stress on the knee, the medial compartment was entered and the medial meniscus was visualized, probed and found to be intact. The medial femoral condyle was run and found to be intact as was the medial tibial plateau. At 90 degrees, the ACL and PCL were visualized and probed and found to be intact. In the figure of 4 position, the lateral compartment was entered. The lateral meniscus was found to have a significant flap tear posteriorly. Probing it revealed a large flap from the undersurface that slipped into the knee joint. This was debrided back to smooth and stable meniscal cartilage using meniscal biters and arthroscopic shaver. The synovium around this area was stimulated to bleed, as there was a Shaffer cyst and we would like that to close down. The lateral femoral condyle was run and found to be intact as was the lateral tibial plateau. The knee was irrigated with copious amounts of irrigation. Portals were closed with 4-0 nylon. Prior to closure 20 mL of 0.5% Marcaine was infused into the knee for postoperative analgesia. Sterile pressure dressing was placed over the knee. Patient awakened from anesthesia and transferred to Recovery in stable condition. No complications. Estimated blood loss negligible. Rubio [id number]
--- NOTE | 2017-10-29 17:11 | PATH ---
Surgical Pathology Report Patient Name: RAHEEL [facility]. Rec. #: [id number] /Age/Gender: 1975 (Age: 42) / F Account: [id number] Location: [facility] SUR[facility] Taken: 10/28/2017 Received: 10/28/2017 Reported: 10/29/2017 Physicians: Walter Llanes M.D. Specimen(s) Received RIGHT KNEE SHAVINGS Clinical History Internal derangement right knee Final Diagnosis KNEE SHAVINGS, RIGHT, ARTHROSCOPY: FRAGMENTS OF CARTILAGE, DENSE FIBROCONNECTIVE TISSUE, ADIPOSE TISSUE, AND SYNOVIUM. Electronically Signed Monica Dooley M.D. Gross Description Received in formalin, labeled "right knee shavings," is a 3.3 x 3.0 x 0.4 cm. aggregate of callahan-yellow soft tissue fragments. A student services representative portion is submitted in one cassette. /10/28/2017 saudi10/28/2017
== END 2017-10-28 14:25 | disposition home or self-care (01) ==
LOC: JASU-SURG 05:41
PROVIDERS: ATTEND Orthopaedic Surgery
PROC: 0SBC4ZZ Excision of Right Knee Joint, Percutaneous Endoscopic Approach (ICD-10-PCS; principal; 2017-10-28 09:30)
DX: M23.91 Unspecified internal derangement of right knee (principal); M23.200 Derangement of unspecified lateral meniscus due to old tear or injury, right knee; E66.01 Morbid (severe) obesity due to excess calories; J45.909 Unspecified asthma, uncomplicated
CPT/HCPCS: 84703; 88304-TC; 94760; J0131

== ENCOUNTER 2019-01-31 13:42 | Inpatient (IN) | payer OTHER ==
--- NOTE | 2019-01-31 13:52 | PDOC ---
Rapid Medical Evaluation Chief Complaint: Pain Time Seen by Provider: 01/31/19 13:48 Medical Evaluation: Allergies Allergy/AdvReac Type Severity Reaction Status Date / Time shellfish derived Allergy SWELLING, Verified 09/25/17 14:35 DIFFICULTY BREATHING, ITCHING iv contrast Allergy Uncoded 09/25/17 14:35 01/31/19 13:48 This patient received a in-person evaluation in triage cc/HPI: nausea, vomiting and abdominal pain, states ill-contact at work reports intermittent coughing PE: NAD clear lungs bilaterally, coughing in triage obese abdomen, + bowel sounds, soft and non tender orders:ekg, urine This patient will proceed to ED for further evaluation Discharge Disposition - Diagnosis Tachycardia, Elevated lactic acid level, Nausea vomiting and diarrhea Abdominal pain Qualifiers: Abdominal location: generalized Qualified Code(s): R10.84 - Generalized abdominal pain Acute asthma exacerbation Qualifiers: Asthma severity: mild Asthma persistence: intermittent Qualified Code(s): J45.21 - Mild intermittent asthma with (acute) exacerbation - Discharge Dispostion Condition at time of disposition: Stable - Referrals Referrals: Taisha Radford MD [Primary Care Provider] - - Patient Instructions - Post Discharge Activity
--- NOTE | 2019-01-31 14:05 | PDOC ---
Attending Attestation - Resident Resident Name: John Paul Sloan - HPI HPI: 01/31/19 16:18 Pt presents to the ED complaining of diffuse abdominal pain, nausea and vomiting and profuse watery diarrhea. Denies fever. 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 - Physicial Exam PE: 01/31/19 16:23 Agree with resident exam. Patient is alert and oriented and in no acute distress. Abdomen is soft, non distended with tenderness in the RUQ without guarding or rebound. - Medical Decision Making 01/31/19 16:24 pt presents to the ED complaining of profuse nausea, vomiting and diarrhea. + RUQ tenderness, so labs and RUQ US checked to evaluate for biliary disease and are negative. Will continue IV hydration and reassess--likely discharge home if symptoms improve
[2019-01-31] MEDS ORDERED: methylPREDNISolone NA SUCC 125 MG/2 ML VIAL IVPUSH ONE (14:15)
[2019-01-31] MEDS ORDERED: ALBUTEROL SO4 2.5/IPRATROPIUM 0.5 INH SOL 3 ML VIAL.NEB. NEB ONE ×2 (14:15→14:16)
[2019-01-31] MEDS ORDERED: LACTATED RINGERS SOLUTION 1000 ML INFUS.BAG IV ONE ×3 (14:15→18:41)
[2019-01-31] MEDS ORDERED: methylPREDNISolone NA SUCC 125 MG/2 ML VIAL ONE (14:16)
--- NOTE | 2019-01-31 14:23 | PDOC ---
History of Present Illness - General Chief Complaint: Pain Stated Complaint: ASTHMA/ ABD.PAIN Time Seen by Provider: 01/31/19 13:48 History Source: Patient, Old Records Exam Limitations: No Limitations - History of Present Illness Initial Comments: HPI: 43 y/o female presenting to [facility] ER complaining of diffuse, cramp-like abdominal pain with nausea, vomiting, and diarrhea since last . Radiating to left flank and back. Emesis described as non-bloody, non-bilious. Stool described as "like a faucet" and non-bloody. Unable to tolerate PO. 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 Pt additionally complaining of shortness of breath, wheezing, and "chest tightness" since yesterday. Associated non-productive cough. Attempted relief with PRN albuterol MD. Pt is concerned for an asthma attack. Has a h/o asthma. Last hospitalized 1.5 years ago. Never intubated. Customer Success Associate: Dr. Prado Medical Hx: - Asthma - PID - multiple UTIs - Chronic constipation (relieved w/ OTC probiotics) - HLD Review of Systems: In addition to that documented in the HPI above, the additional ROS was obtained : Constitutional- Denies fevers or chills Head- Denies vision changes ENMT- Denies sore throat CV- Denies chest pain Resp- Per HPI GI- Per HPI - Denies painful urination MSK- Denies recent trauma Skin- Denies new rashes Neuro- Denies new numbness or tingling or weakness Endocrine- Denies polyuria Heme- Denies bleeding or bruising Physical Examination: Vital signs and nursing notes reviewed. Constitutional- Well-developed, well-nourished adult female in no acute distress but obvious discomfort. Obese body habitus. Found semi-fowlers on hospital bed. Answered all questions appropriately and completely. Head- Normocephalic. No obvious external signs of trauma. Cardiovascular / Chest- Tachycardic rate with regular rhythm. No murmur, rubs, clicks, or gallops. Peripheral pulses- radial pulses full. Respiratory- Breathing mildly tachypneic. Able to speak in multi-word responses without pausing. Equal chest rise and fall. Diffuse end-expiratory wheezing. Gastrointestinal- abdomen is diffusely tender, worse in RUQ w/ grimace and guarding. Positive Gallegos's sign. No pulsatile masses. No overlying skin lesions or obvious signs of trauma. Able to transition from semi-fowlers to fowlers position without obvious change in discomfort. Neuro- Alert and oriented x4. Moving all four extremities spontaneously. Skin- Warm, dry, and intact. - No R or L CVA tenderness. Psych- Affect- appropriate. Mood- normal. Speech was non-labored, non- pressured. MDM: 43 y/o female presenting with diffuse abdominal pain w/ N/V/D x5 days with multiple sick contacts. Additionally complaining of non-productive cough and wheezing. Afebrile. Vitals remarkable for tachycardia without hypotension. Afebrile. Physical exam as described above. Suspect acute viral gastroenteritis with acute dehydration. RUQ U/S unremarkable for acute biliary pathology. No LFT or lipase elevation. No significant leukocytosis but lactic acid elevated. Received 2L IVFB. Repeat lactic acid remains elevated; possibly related to albuterol administration coupled with dehydration. Tachycardia improved, but persisting without hypotension. Repeat ascultory exam revealed decreased wheezing; no rales. Will admit the pt for further IV hydration. Suspect shortness of breath is secondary to acute asthma exacerbation. Received DuoNebs and Solu-medrol. Respiratory symptoms improved. 31 Jan 2019 21:15 PM Telephone discussion with Dr. White. Verbally appraised of the pts HPI, ED course, and current plan of management. Will admit the pt to med/surg for further IV rehydration. No additional orders requested. John Paul Sloan M.D., PGY2 Emergency Medicine Resident Is this a multiple visit Asthma Patient?: No Past History - Past Medical History Allergies/Adverse Reactions: Allergies Allergy/AdvReac Type Severity Reaction Status Date / Time shellfish derived Allergy SWELLING, Verified 09/25/17 14:35 DIFFICULTY BREATHING, ITCHING iv contrast Allergy Uncoded 09/25/17 14:35 Home Medications: Ambulatory Orders Albuterol Sulfate Inhaler - [Ventolin HFA Inhaler -] 2 inh PO Q4H PRN 07/20/15 Tiotropium [place] [Spiriva] 1 inh PO DAILY 07/20/15 Omalizumab [Xolair -] 0 mg SQ Q30D 08/27/16 Montelukast Na [Singulair -] 10 mg PO HS #30 tablet 08/29/16 Fluticasone/Vilanterol [Breo Ellipta 100-25 Mcg INH] 1 each IH DAILY 10/26/17 Oxycodone HCl/Acetaminophen [Percocet 5-325 mg Tablet] 1 tab PO Q6H #20 tablet MDD 4 10/28/17 Anemia: No Asthma: Yes Cancer: No Cardiac Disorders: No CVA: No COPD: No CHF: No Dementia: No Diabetes: No GI Disorders: No Disorders: No HTN: No Hypercholesterolemia: Yes Liver Disease: No Seizures: No Thyroid Disease: No - Surgical History Abdominal Surgery: Yes Appendectomy: Yes Cardiac Surgery: No Cholecystectomy: No Lung Surgery: No Neurologic Surgery: No Orthopedic Surgery: No - Immunization History Immunization Up to Date: Yes - Psycho Social/Smoking Cessation Hx Smoking Status: Yes Smoking History: Never smoked Have you smoked in the past 12 months: No Number of Cigarettes Smoked Daily: 1 If you are a former smoker, when did you quit?: 07/2013 Cigars Per Day: 1 Information on smoking cessation initiated: No 'Breaking Loose' booklet given: 07/28/13 Hx Alcohol Use: No Drug/Substance Use Hx: No Substance Use Type: None Hx Substance Use Treatment: No *Physical Exam - Vital Signs Last Vital Signs Temp Pulse Resp BP Pulse Ox 98.2 F 128 H 18 142/81 99 01/31/19 13:47 01/31/19 13:47 01/31/19 13:47 01/31/19 13:47 01/31/19 13:47 Vital Signs - Vital Signs #1 Time: 14:22 Blood Pressure: 138/108 BP Location: Right Arm Blood Pressure Position: Sitting Pulse Rate: 118 Respiratory Rate: 24 O2 Sat by Pulse Oximetry (%): 98 Oxygen Delivery Method: Room Air ED Treatment Course - LABORATORY CBC & Chemistry Diagram: 01/31/19 14:35 01/31/19 14:35 - RADIOLOGY Radiology Studies Ordered: Category Date Time Status GALLBLADDER US [US] Stat Ultrasound 01/31/19 14:17 Ordered Discharge - Discharge Information Problems reviewed: Yes Clinical Impression/Diagnosis: Nausea vomiting and diarrhea, Tachycardia, Elevated lactic acid level Abdominal pain Qualifiers: Abdominal location: generalized Qualified Code(s): R10.84 - Generalized abdominal pain Acute asthma exacerbation Qualifiers: Asthma severity: mild Asthma persistence: intermittent Qualified Code(s): J45.21 - Mild intermittent asthma with (acute) exacerbation Condition: Stable - Admission Yes - Follow up/Referral Referrals: Taisha Radford MD [Primary Care Provider] - - Patient Discharge Instructions - Post Discharge Activity
[2019-01-31 14:53] LABS: BASO % 0.7 % (0-2.0); EOS % 0.5 % (0-4.5); HEMATOCRIT 45.4 % (32.4-45.2); HEMOGLOBIN 15.2 GM/dL (10.7-15.3); MCH 29.8 pg (25.7-33.7); MCHC 33.4 g/dl (32.0-36.0); MONO % 9.9 % (3.8-10.2); NEUT % 75.9 % (42.8-82.8); PLATELET COUNT 349 K/MM3 (134-434); RDW 14.3 % (11.6-15.6); WHITE BLOOD COUNT 10.4 K/mm3 (4.0-10.0)
[2019-01-31 15:23] LABS: ALBUMIN 3.8 g/dl (3.4-5.0); BILIRUBIN,TOTAL 0.2 mg/dL (0.2-1); BLOOD UREA NITROGEN 7.4 mg/dL (7-18); CALCIUM 8.8 mg/dL (8.5-10.1); CREATININE 0.8 mg/dL (0.55-1.3); POTASSIUM 3.5 mmol/L (3.5-5.1)
[2019-01-31] MEDS ORDERED: ALBUTEROL SO4 0.083% IH SOL 2.5 MG/3 ML VIAL.NEB. NEB ONE ×2 (17:14→17:36)
[2019-01-31] MEDS: LACTATED RINGERS SOLUTION 1000 ML INFUS.BAG IV ONE ×2 (17:34→18:41)
[2019-01-31] MEDS ORDERED: ACETAMINOPHEN 325 MG TABLET (FP) ONE ×2 (17:36→22:08)
[2019-01-31] MEDS ORDERED: LACTATED RINGERS SOLUTION 1,000 ML/1,000 ML INFUS.BAG IV SCH (19:45)
--- NOTE | 2019-01-31 21:28 | HP ---
Admitting History and Physical - Primary Care Physician PCP: Angella White - Admission History of Present Illness: 43 y/o female presenting to [facility] complaining of diffuse, cramp-like abdominal pain with nausea, vomiting, and diarrhea since last . Radiating to left flank and back. Emesis described as non-bloody, non-bilious. Stool described as "like a faucet" and non-bloody. Unable to tolerate PO. 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 Pt additionally complaining of shortness of breath, wheezing, and "chest tightness" since yesterday. Associated non-productive cough. Attempted relief with PRN albuterol LYNDA. Pt is concerned for an asthma attack. Has a h/o asthma. Last hospitalized 1.5 years ago. Never intubated. - Past Medical History Cardiovascular: Yes: Hyperlipdemia Pulmonary: Yes: Asthma. 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 [employer] History of Recent Travel: No Home Medications - Allergies Allergies/Adverse Reactions: Allergies Allergy/AdvReac Type Severity Reaction Status Date / Time shellfish derived Allergy SWELLING, Verified 09/25/17 14:35 DIFFICULTY BREATHING, ITCHING iv contrast Allergy Uncoded 09/25/17 14:35 - Home Medications Home Medications: Ambulatory Orders Albuterol Sulfate Inhaler - [Ventolin HFA Inhaler -] 2 inh PO Q4H PRN 07/20/15 Tiotropium [place] [Spiriva] 1 inh PO DAILY 07/20/15 Omalizumab [Xolair -] 0 mg SQ Q30D 08/27/16 Montelukast Na [Singulair -] 10 mg PO HS #30 tablet 08/29/16 Fluticasone/Vilanterol [Breo Ellipta 100-25 Mcg INH] 1 each IH DAILY 10/26/17 Oxycodone HCl/Acetaminophen [Percocet 5-325 mg Tablet] 1 tab PO Q6H #20 tablet MDD 4 10/28/17 Physical Examination Vital Signs: Vital Signs Temperature 97.9 F 01/31/19 20:38 Pulse Rate 118 H 01/31/19 21:16 Respiratory Rate 24 H 01/31/19 21:16 Blood Pressure 138/108 H 01/31/19 21:16 O2 Sat by Pulse Oximetry (%) 98 01/31/19 21:16 Constitutional: Yes: No Distress HENT: Yes: Atraumatic Neck: Yes: Supple Cardiovascular: Yes: Regular Rate and Rhythm Respiratory: Yes: Rhonchi, Wheezes Gastrointestinal: Yes: Normal Bowel Sounds Extremities: Yes: WNL Neurological: Yes: Alert, Oriented Labs: CBC, BMP 01/31/19 14:35 01/31/19 14:35 Imaging - Results Ultrasound: Report Reviewed Problem List - Problems (1) Abdominal pain Assessment/Plan: resolving Code(s): R10.9 - UNSPECIFIED ABDOMINAL PAIN Qualifiers: Abdominal location: generalized Qualified Code(s): R10.84 - Generalized abdominal pain (2) Asthma exacerbation Assessment/Plan: on steroids and duo nebs pulmonary consult Code(s): J45.901 - UNSPECIFIED ASTHMA WITH (ACUTE) EXACERBATION Qualifiers: Asthma severity: mild Asthma persistence: intermittent Qualified Code(s) : J45.21 - Mild intermittent asthma with (acute) exacerbation (3) Nausea vomiting and diarrhea Assessment/Plan: prn zofran ivf Code(s): R11.2 - NAUSEA WITH VOMITING, UNSPECIFIED; R19.7 - DIARRHEA, UNSPECIFIED Assessment/Plan Laboratory Tests 01/31/19 01/31/19 01/31/19 14:35 14:35 14:35 WBC 10.4 H RBC 5.10 Hgb 15.2 Hct 45.4 H MCV 89.0 MCH 29.8 MCHC 33.4 RDW 14.3 Plt Count 349 MPV 8.0 Absolute Neuts (auto) 7.9 Neutrophils % 75.9 Lymphocytes % 13.0 D Monocytes % 9.9 Eosinophils % 0.5 Basophils % 0.7 Nucleated RBC % 0 Sodium 138 Potassium 3.5 Chloride 103 Carbon Dioxide 27 Anion Gap 8 BUN 7.4 Creatinine 0.8 Est GFR (CKD-EPI)AfAm 106.13 Est GFR (CKD-EPI)NonAf 91.57 Random Glucose 113 H Lactic Acid 2.8 H* Calcium 8.8 Total Bilirubin 0.2 AST 19 ALT 48 Alkaline Phosphatase 120 H Total Protein 8.0 Albumin 3.8 Lipase Serum , Qual 01/31/19 01/31/19 01/31/19 14:35 18:50 18:50 WBC RBC Hgb Hct MCV MCH MCHC RDW Plt Count MPV Absolute Neuts (auto) Neutrophils % Lymphocytes % Monocytes % Eosinophils % Basophils % Nucleated RBC % Sodium Potassium Chloride Carbon Dioxide Anion Gap BUN Creatinine Est GFR (CKD-EPI)AfAm Est GFR (CKD-EPI)NonAf Random Glucose Lactic Acid 3.7 H* Calcium Total Bilirubin AST ALT Alkaline Phosphatase Total Protein Albumin Lipase 113 Serum , Qual Negative Active Medications Generic Name Dose Route Start Last Admin Trade Name Freq PRN Reason Stop Dose Admin Acetaminophen 650 mg 01/31/19 21:32 02/01/19 15:57 Tylenol - PO 650 mg Q6H PRN Administration FEVER Albuterol Sulfate 1 amp 01/31/19 21:31 02/01/19 05:00 Ventolin 0.083% Nebulizer Soln - NEB 1 amp Q4H PRN Administration SHORT OF BREATH/WHEEZING Albuterol/Ipratropium 1 amp 02/01/19 12:00 02/01/19 20:00 Duoneb - NEB 1 amp RQID TODD Administration Lactated Ringer's 1,000 ml in 1,000 mls @ 125 mls/hr 01/31/19 19:45 01/31/19 22:13 Lactated Ringers Solution IV 125 mls/hr ASDIR TODD Administration Sodium Chloride 1,000 mls @ 75 mls/hr 01/31/19 22:00 02/01/19 06:52 Normal Saline - IV 75 mls/hr ASDIR TODD Administration Methylprednisolone Sodium Succinate 60 mg 02/01/19 18:00 02/01/19 19:01 Solu-Medrol - IVPUSH 60 mg Q8H-IV TODD Administration Montelukast Sodium 10 mg 01/31/19 22:00 01/31/19 22:12 Singulair - PO 10 mg HS TODD Administration Ondansetron HCl 4 mg 01/31/19 21:55 Zofran Injection IVPB Q4H PRN NAUSEA AND/OR VOMITING
[2019-01-31] MEDS ORDERED: ALBUTEROL SO4 0.083% IH SOL 2.5 MG/3 ML VIAL.NEB. NEB PRN (21:31)
[2019-01-31] MEDS ORDERED: ONDANSETRON 4 MG/2 ML VIAL IVPB PRN (21:55)
[2019-01-31] MEDS ORDERED: SODIUM CHLORIDE 1,000 ML IV SCH (22:00)
[2019-01-31] MEDS ORDERED: MONTELUKAST NA 10 MG TABLET ONE (22:09)
[2019-01-31] MEDS: ACETAMINOPHEN 325 MG TABLET (FP) PO PRN (22:12)
[2019-01-31] MEDS: MONTELUKAST NA 10 MG TABLET PO SCH (22:12)
[2019-02-01 02:07] LABS: URINE APPEARANCE CLEAR; URINE BILIRUBIN NEGATIVE (NEGATIVE); URINE COLOR YELLOW; URINE GLUCOSE (UA) 3+ (NEGATIVE); URINE KETONE NEGATIVE (NEGATIVE); URINE LEUK ESTERASE NEGATIVE (NEGATIVE); URINE NITRITE NEGATIVE (NEGATIVE); URINE PROTEIN NEGATIVE (NEGATIVE); URINE UROBILINOGEN 0.2 mg/dL (0.2-1.0)
[2019-02-01] MEDS ORDERED: methylPREDNISolone NA SUCC 40 MG/1 ML VIAL ONE (03:49)
[2019-02-01] MEDS: methylPREDNISolone NA SUCC 40 MG/1 ML VIAL IVPUSH SCH ×3 (03:50→19:01)
[2019-02-01 05:00] VITALS: BMI 43.1
[2019-02-01 07:52] LABS: BASO % 0.1 % (0-2.0); HEMATOCRIT 40.7 % (32.4-45.2); HEMOGLOBIN 13.7 GM/dL (10.7-15.3); LYMPH % 10.9 % (8-40); MCH 30.2 pg (25.7-33.7); MCHC 33.7 g/dl (32.0-36.0); MEAN CELL VOLUME 89.8 fl (80-96); MONO % 2.6 % (3.8-10.2); NEUT % 86.4 % (42.8-82.8); PLATELET COUNT 305 K/MM3 (134-434); RBC 4.54 M/mm3 (3.60-5.2); RDW 14.4 % (11.6-15.6); WHITE BLOOD COUNT 7.5 K/mm3 (4.0-10.0)
--- NOTE | 2019-02-01 09:46 | EKG ---
Test Reason : Blood Pressure : / mmHG Vent. Rate : 123 BPM Atrial Rate : 123 BPM P-R Int : 126 ms QRS Dur : 074 ms QT Int : 302 ms P-R-T Axes : 060 048 011 degrees QTc Int : 432 ms POOR DATA QUALITY, INTERPRETATION MAY BE ADVERSELY AFFECTED SINUS TACHYCARDIA POSSIBLE LEFT ATRIAL ENLARGEMENT BORDERLINE ECG WHEN COMPARED WITH ECG OF 23-FEB-2017 17:40, NO SIGNIFICANT CHANGE WAS FOUND Confirmed by MD Marlon, Reggie ([id number]) on 02/01/2019 9:46:09 AM Referred By: Confirmed By:Reggie Mason MD
--- NOTE | 2019-02-01 10:25 | CON.PULM ---
Consult Consult Specialty:: PULMONARY Referred by:: Dr White Reason for Consultation:: asthma - History of Present Illness Chief Complaint: shortness of breath History of Present Illness: 43yo female with h/o asthma, hyperlipidemia who was admitted with worsening shortness of breath. Developed diarrhea 5 days ago along with nausea and vomiting. 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 Started experiencing shortness of breath 3 days ago with nonproductive cough and wheezing. Compliant with her inhalers. No fevers, chills or sweats. - History Source History Provided By: Patient, Medical Record Limitations to Obtaining History: No Limitations - Past Medical History Cardio/Vascular: Yes: Hyperlipdemia Pulmonary: Yes: Asthma. 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 History of Recent Travel: No Home Medications - Allergies Allergies/Adverse Reactions: Allergies Allergy/AdvReac Type Severity Reaction Status Date / Time shellfish derived Allergy SWELLING, Verified 09/25/17 14:35 DIFFICULTY BREATHING, ITCHING iv contrast Allergy Uncoded 09/25/17 14:35 - Home Medications Home Medications: Ambulatory Orders Albuterol Sulfate Inhaler - [Ventolin HFA Inhaler -] 2 inh PO Q4H PRN 07/20/15 Tiotropium [place] [Spiriva] 1 inh PO DAILY 07/20/15 Omalizumab [Xolair -] 0 mg SQ Q30D 08/27/16 Montelukast Na [Singulair -] 10 mg PO HS #30 tablet 08/29/16 Fluticasone/Vilanterol [Breo Ellipta 100-25 Mcg INH] 1 each IH DAILY 10/26/17 Oxycodone HCl/Acetaminophen [Percocet 5-325 mg Tablet] 1 tab PO Q6H #20 tablet MDD 4 10/28/17 Review of Systems - Review of Systems Constitutional: reports: Weakness. denies: Chills, Fever Eyes: denies: Recent Change in Vision HENT: denies: Nasal Congestion, Throat Pain Neck: denies: Stiffness, Tenderness Cardiovascular: reports: Shortness of Breath. denies: Chest Pain, Edema, Palpitations Respiratory: reports: Cough, SOB, Wheezing. denies: Hemoptysis Gastrointestinal: reports: Diarrhea, Nausea, Vomiting. denies: Abdominal Pain Genitourinary: denies: Dysuria, Hematuria Neurological: denies: Dizziness, Headache Endocrine: denies: Unexplained Weight Loss Physical Exam Vital Sings: Vital Signs Temperature 97.9 F 02/01/19 07:03 Pulse Rate 96 H 02/01/19 07:03 Respiratory Rate 20 02/01/19 07:03 Blood Pressure 147/86 02/01/19 07:03 O2 Sat by Pulse Oximetry (%) 96 02/01/19 04:42 Constitutional: Yes: Calm Eyes: Yes: Conjunctiva Clear, EOM Intact HENT: Yes: Atraumatic, Normocephalic Neck: Yes: Supple, Trachea Midline Cardiovascular: Yes: Regular Rate and Rhythm Respiratory: Yes: Rhonchi, Wheezes ...Clubbing: No Gastrointestinal: Yes: Normal Bowel Sounds, Soft. No: Tenderness Edema: No Neurological: Yes: Alert, Oriented Labs: CBC, BMP 02/01/19 06:55 Problem List - Problems (1) Asthma exacerbation Code(s): J45.901 - UNSPECIFIED ASTHMA WITH (ACUTE) EXACERBATION Qualifiers: Asthma severity: mild Asthma persistence: intermittent Qualified Code(s) : J45.21 - Mild intermittent asthma with (acute) exacerbation Assessment/Plan Acute Asthma Exacerbation Acute Gastroenteritis Hyperlipidemia - IV medrol - inhaled bronchodilators standing and PRN - singulair - monitor peak flow - check CXR - DVT prophylaxis Thank you for this consult Fernando Prado MD
[2019-02-01 10:58] LABS: ALBUMIN 3.1 g/dl (3.4-5.0); BILIRUBIN,TOTAL 0.2 mg/dL (0.2-1); BLOOD UREA NITROGEN 6.4 mg/dL (7-18); CALCIUM 8.7 mg/dL (8.5-10.1); CREATININE 0.4 mg/dL (0.55-1.3); POTASSIUM 3.9 mmol/L (3.5-5.1); TOT PROT 6.7 g/dl (6.4-8.2)
[2019-02-01] MEDS: ALBUTEROL SO4 2.5/IPRATROPIUM 0.5 INH SOL 3 ML VIAL.NEB. NEB SCH ×3 (11:25→20:00)
--- NOTE | 2019-02-01 15:52 | PN ---
Progress Note, Physician History of Present Illness: doing well no more vomitting or diarrhea - Current Medication List Current Medications: Active Medications Acetaminophen (Tylenol -) 650 mg PO Q6H PRN PRN Reason: FEVER Last Admin: 01/31/19 22:12 Dose: 650 mg Albuterol Sulfate (Ventolin 0.083% Nebulizer Soln -) 1 amp NEB Q4H PRN PRN Reason: SHORT OF BREATH/WHEEZING Last Admin: 02/01/19 05:00 Dose: 1 amp Albuterol/Ipratropium (Duoneb -) 1 amp NEB RQID TODD Last Admin: 02/01/19 15:42 Dose: 1 amp Lactated Ringer's (Lactated Ringers Solution) 1,000 ml in 1,000 mls @ 125 mls/ hr IV ASDIR TODD Last Admin: 01/31/19 22:13 Dose: 125 mls/hr Sodium Chloride (Normal Saline -) 1,000 mls @ 75 mls/hr IV ASDIR TODD Last Admin: 02/01/19 06:52 Dose: 75 mls/hr Methylprednisolone Sodium Succinate (Solu-Medrol -) 60 mg IVPUSH Q8H-IV TODD Montelukast Sodium (Singulair -) 10 mg PO HS TODD Last Admin: 01/31/19 22:12 Dose: 10 mg Ondansetron HCl (Zofran Injection) 4 mg IVPB Q4H PRN PRN Reason: NAUSEA AND/OR VOMITING - Objective Vital Signs: Vital Signs Temperature 98.3 F 02/01/19 14:00 Pulse Rate 87 02/01/19 14:00 Respiratory Rate 18 02/01/19 14:00 Blood Pressure 169/88 02/01/19 14:00 O2 Sat by Pulse Oximetry (%) 95 02/01/19 12:12 Constitutional: Yes: No Distress HENT: Yes: Atraumatic Neck: Yes: Supple Cardiovascular: Yes: Regular Rate and Rhythm Respiratory: Yes: Wheezes Gastrointestinal: Yes: Normal Bowel Sounds Extremities: Yes: WNL Edema: No Neurological: Yes: Alert, Oriented Labs: CBC, BMP 02/01/19 06:55 02/01/19 06:55 Problem List - Problems (1) Abdominal pain Assessment/Plan: resolved Code(s): R10.9 - UNSPECIFIED ABDOMINAL PAIN Qualifiers: Abdominal location: generalized Qualified Code(s): R10.84 - Generalized abdominal pain (2) Asthma exacerbation Assessment/Plan: on steroids and duo nebs doing better Code(s): J45.901 - UNSPECIFIED ASTHMA WITH (ACUTE) EXACERBATION Qualifiers: Asthma severity: mild Asthma persistence: intermittent Qualified Code(s) : J45.21 - Mild intermittent asthma with (acute) exacerbation (3) Nausea vomiting and diarrhea Assessment/Plan: resolved Code(s): R11.2 - NAUSEA WITH VOMITING, UNSPECIFIED; R19.7 - DIARRHEA, UNSPECIFIED Assessment/Plan DC IN AM IF STABLE SEE DC INSTRUCTIONS
[2019-02-01] MEDS: ACETAMINOPHEN 325 MG TABLET (FP) PO PRN (15:57)
--- NOTE | 2019-02-01 17:37 | CON.ID ---
Consult - History of Present Illness History of Present Illness: 43 y.o. female with PMH of asthma, PID, s/p tubal ligation, UTIs, HLD presented with c/o abd pain/n/v/d x 5 days. States that she was having numerous episodes of loose, non-bloody stools and vomiting. Describes the abd pain as intermittent and sharp. 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 Denies fever/chills, urinary f/u/ d. In addition she states she has been having SOB x 3 days with wheezing without production of sputum. In the ER pt without acute distress, afebrile, without leukocytosis. LFTs and Lipase normal with normal abd US. Today she states she has had no vomiting episode and is tolerating her diet, she has minimal abd pain. Has had one BM which is less loose. She began having vaginal bleeding today without pelvic pain. Attributes it to the steroids she is on and states this has happened before. Her LMP was 01/15/19. Last saw [employer] one year ago and PAP smear was negative as per patient. - History Source History Provided By: Patient Limitations to Obtaining History: No Limitations - Past Medical History Cardio/Vascular: Yes: Hyperlipdemia Pulmonary: Yes: Asthma. 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 History of Recent Travel: No Home Medications - Allergies Allergies/Adverse Reactions: Allergies Allergy/AdvReac Type Severity Reaction Status Date / Time shellfish derived Allergy SWELLING, Verified 09/25/17 14:35 DIFFICULTY BREATHING, ITCHING iv contrast Allergy Uncoded 09/25/17 14:35 - Home Medications Home Medications: Ambulatory Orders Albuterol Sulfate Inhaler - [Ventolin HFA Inhaler -] 2 inh PO Q4H PRN 07/20/15 Tiotropium [place] [Spiriva] 1 inh PO DAILY 07/20/15 Omalizumab [Xolair -] 0 mg SQ Q30D 08/27/16 Montelukast Na [Singulair -] 10 mg PO HS #30 tablet 08/29/16 Fluticasone/Vilanterol [Breo Ellipta 100-25 Mcg INH] 1 each IH DAILY 10/26/17 Oxycodone HCl/Acetaminophen [Percocet 5-325 mg Tablet] 1 tab PO Q6H #20 tablet MDD 4 10/28/17 Review of Systems - Review of Systems Constitutional: reports: No Symptoms Eyes: reports: No Symptoms HENT: reports: No Symptoms Neck: reports: No Symptoms Cardiovascular: reports: No Symptoms Respiratory: reports: SOB Gastrointestinal: reports: Abdominal Pain (minimal) Genitourinary: reports: No Symptoms, Vaginal Bleeding Musculoskeletal: reports: No Symptoms Integumentary: reports: No Symptoms Neurological: reports: No Symptoms Physical Exam Vital Signs: Vital Signs Temperature 98.3 F 02/01/19 14:00 Pulse Rate 87 02/01/19 14:00 Respiratory Rate 18 02/01/19 14:00 Blood Pressure 169/88 02/01/19 14:00 O2 Sat by Pulse Oximetry (%) 95 02/01/19 12:12 Constitutional: Yes: Well Nourished, No Distress, Calm Eyes: Yes: Conjunctiva Clear HENT: Yes: Atraumatic Neck: Yes: Supple Cardiovascular: Yes: Regular Rate and Rhythm Respiratory: Yes: CTA Bilaterally Gastrointestinal: Yes: Normal Bowel Sounds, Soft, Tenderness (minimal dull midabdomen with deep palpation, no guarding) Renal/: Yes: Vaginal Bleeding Musculoskeletal: Yes: WNL Extremities: Yes: WNL Edema: No Integumentary: Yes: WNL Neurological: Yes: Alert, Oriented Labs: CBC, BMP 02/01/19 06:55 02/01/19 06:55 Laboratory Tests 01/31/19 01/31/19 01/31/19 14:35 14:35 14:35 WBC 10.4 H RBC 5.10 Hgb 15.2 Hct 45.4 H MCV 89.0 MCH 29.8 MCHC 33.4 RDW 14.3 Plt Count 349 MPV 8.0 Absolute Neuts (auto) 7.9 Neutrophils % 75.9 Lymphocytes % 13.0 D Monocytes % 9.9 Eosinophils % 0.5 Basophils % 0.7 Nucleated RBC % 0 Sodium 138 Potassium 3.5 Chloride 103 Carbon Dioxide 27 Anion Gap 8 BUN 7.4 Creatinine 0.8 Est GFR (CKD-EPI)AfAm 106.13 Est GFR (CKD-EPI)NonAf 91.57 Random Glucose 113 H Lactic Acid 2.8 H* Calcium 8.8 Total Bilirubin 0.2 AST 19 ALT 48 Alkaline Phosphatase 120 H Total Protein 8.0 Albumin 3.8 Lipase Serum , Qual Urine Color Urine Appearance Urine pH Ur Specific [place] Urine Protein Urine Glucose (UA) Urine Ketones Urine Blood Urine Nitrite Urine Bilirubin Urine Urobilinogen Ur Leukocyte Esterase Influenza A (Rapid) Influenza B (Rapid) 01/31/19 01/31/19 01/31/19 14:35 18:50 18:50 WBC RBC Hgb Hct MCV MCH MCHC RDW Plt Count MPV Absolute Neuts (auto) Neutrophils % Lymphocytes % Monocytes % Eosinophils % Basophils % Nucleated RBC % Sodium Potassium Chloride Carbon Dioxide Anion Gap BUN Creatinine Est GFR (CKD-EPI)AfAm Est GFR (CKD-EPI)NonAf Random Glucose Lactic Acid 3.7 H* Calcium Total Bilirubin AST ALT Alkaline Phosphatase Total Protein Albumin Lipase 113 Serum , Qual Negative Urine Color Urine Appearance Urine pH Ur Specific [place] Urine Protein Urine Glucose (UA) Urine Ketones Urine Blood Urine Nitrite Urine Bilirubin Urine Urobilinogen Ur Leukocyte Esterase Influenza A (Rapid) Influenza B (Rapid) 02/01/19 02/01/19 02/01/19 01:00 04:06 06:55 WBC 7.5 RBC 4.54 Hgb 13.7 Hct 40.7 MCV 89.8 MCH 30.2 MCHC 33.7 RDW 14.4 Plt Count 305 MPV 8.0 Absolute Neuts (auto) 6.5 Neutrophils % 86.4 H Lymphocytes % 10.9 Monocytes % 2.6 L Eosinophils % 0.0 D Basophils % 0.1 Nucleated RBC % 0 Sodium Potassium Chloride Carbon Dioxide Anion Gap BUN Creatinine Est GFR (CKD-EPI)AfAm Est GFR (CKD-EPI)NonAf Random Glucose Lactic Acid 1.2 Calcium Total Bilirubin AST ALT Alkaline Phosphatase Total Protein Albumin Lipase Serum , Qual Urine Color Yellow Urine Appearance Clear Urine pH 6.0 Ur Specific [place] 1.022 Urine Protein Negative Urine Glucose (UA) 3+ H Urine Ketones Negative Urine Blood Negative Urine Nitrite Negative Urine Bilirubin Negative Urine Urobilinogen 0.2 Ur Leukocyte Esterase Negative Influenza A (Rapid) Influenza B (Rapid) 02/01/19 02/01/19 06:55 15:29 WBC RBC Hgb Hct MCV MCH MCHC RDW Plt Count MPV Absolute Neuts (auto) Neutrophils % Lymphocytes % Monocytes % Eosinophils % Basophils % Nucleated RBC % Sodium 141 Potassium 3.9 Chloride 113 H Carbon Dioxide 18 L Anion Gap 10 BUN 6.4 L Creatinine 0.4 L Est GFR (CKD-EPI)AfAm 149.94 Est GFR (CKD-EPI)NonAf 129.37 Random Glucose 125 H Lactic Acid Calcium 8.7 Total Bilirubin 0.2 AST 21 ALT 36 Alkaline Phosphatase 93 Total Protein 6.7 Albumin 3.1 L Lipase Serum , Qual Urine Color Urine Appearance Urine pH Ur Specific [place] Urine Protein Urine Glucose (UA) Urine Ketones Urine Blood Urine Nitrite Urine Bilirubin Urine Urobilinogen Ur Leukocyte Esterase Influenza A (Rapid) Negative Influenza B (Rapid) Negative Imaging - Results Chest X-ray: Report Reviewed Ultrasound: Report Reviewed Problem List - Problems (1) Abdominal pain Code(s): R10.9 - UNSPECIFIED ABDOMINAL PAIN Qualifiers: Abdominal location: generalized Qualified Code(s): R10.84 - Generalized abdominal pain (2) Asthma exacerbation Code(s): J45.901 - UNSPECIFIED ASTHMA WITH (ACUTE) EXACERBATION Qualifiers: Asthma severity: mild Asthma persistence: intermittent Qualified Code(s) : J45.21 - Mild intermittent asthma with (acute) exacerbation (3) Elevated lactic acid level Code(s): R79.89 - OTHER SPECIFIED ABNORMAL FINDINGS OF BLOOD CHEMISTRY (4) Nausea vomiting and diarrhea Code(s): R11.2 - NAUSEA WITH VOMITING, UNSPECIFIED; R19.7 - DIARRHEA, UNSPECIFIED (5) Tachycardia Code(s): R00.0 - TACHYCARDIA, UNSPECIFIED Assessment/Plan 43 y.o. female with PMH of asthma, PID, s/p tubal ligation, UTIs, HLD presented with c/o abd pain/n/v/d x 5 days as well as SOB/wheezing x 3 days. Vaginal bleeding noted today. Viral Gastroenteritis Asthma Exacerbation Vaginal bleeding -- Pt with no further vomiting/diarrhea episodes, abdominal pain improved, afebrile/without leukocytosis -- consider [employer] evaluation for vaginal bleeding -- Pulmonary following -- continue monitor off of antibiotics vitals currently stable Will follow Thank you
[2019-02-01] MEDS: MONTELUKAST NA 10 MG TABLET PO SCH (21:47)
[2019-02-02] MEDS: methylPREDNISolone NA SUCC 40 MG/1 ML VIAL IVPUSH SCH ×2 (02:32→09:49)
[2019-02-02] MEDS: ALBUTEROL SO4 2.5/IPRATROPIUM 0.5 INH SOL 3 ML VIAL.NEB. NEB SCH ×2 (07:30→11:19)
[2019-02-02] MEDS ORDERED: PT OWN MED DRAWER 7, Y5N ONE (09:46)
--- NOTE | 2019-02-02 11:49 | PN ---
Progress Note, Physician History of Present Illness: stable no complaints dirrhoea improved - Current Medication List Current Medications: Active Medications Acetaminophen (Tylenol -) 650 mg PO Q6H PRN PRN Reason: FEVER Last Admin: 02/01/19 15:57 Dose: 650 mg Albuterol Sulfate (Ventolin 0.083% Nebulizer Soln -) 1 amp NEB Q4H PRN PRN Reason: SHORT OF BREATH/WHEEZING Last Admin: 02/01/19 05:00 Dose: 1 amp Albuterol/Ipratropium (Duoneb -) 1 amp NEB RQID TODD Last Admin: 02/02/19 11:19 Dose: 1 amp Methylprednisolone Sodium Succinate (Solu-Medrol -) 60 mg IVPUSH Q8H-IV TODD Last Admin: 02/02/19 09:49 Dose: 60 mg Montelukast Sodium (Singulair -) 10 mg PO HS [facility] Last Admin: 02/01/19 21:47 Dose: 10 mg Ondansetron HCl (Zofran Injection) 4 mg IVPB Q4H PRN PRN Reason: NAUSEA AND/OR VOMITING - Objective Vital Signs: Vital Signs Temperature 97.5 F L 02/02/19 06:49 Pulse Rate 97 H 02/02/19 06:49 Respiratory Rate 20 02/02/19 06:49 Blood Pressure 153/95 02/02/19 06:49 O2 Sat by Pulse Oximetry (%) 96 02/01/19 21:00 Constitutional: Yes: No Distress, Calm, Obese Cardiovascular: Yes: S1, S2 Respiratory: Yes: Regular, CTA Bilaterally Gastrointestinal: Yes: Normal Bowel Sounds, Soft Musculoskeletal: Yes: WNL Extremities: Yes: WNL Neurological: Yes: Alert, Oriented Psychiatric: Yes: Alert, Oriented Labs: CBC, BMP 02/01/19 06:55 02/01/19 06:55 Assessment/Plan Problem List - Problems (1) Abdominal pain Code(s): R10.9 - UNSPECIFIED ABDOMINAL PAIN Qualifiers: Abdominal location: generalized Qualified Code(s): R10.84 - Generalized abdominal pain (2) Asthma exacerbation Code(s): J45.901 - UNSPECIFIED ASTHMA WITH (ACUTE) EXACERBATION Qualifiers: Asthma severity: mild Asthma persistence: intermittent Qualified Code(s) : J45.21 - Mild intermittent asthma with (acute) exacerbation (3) Elevated lactic acid level Code(s): R79.89 - OTHER SPECIFIED ABNORMAL FINDINGS OF BLOOD CHEMISTRY (4) Nausea vomiting and diarrhea Code(s): R11.2 - NAUSEA WITH VOMITING, UNSPECIFIED; R19.7 - DIARRHEA, UNSPECIFIED (5) Tachycardia Code(s): R00.0 - TACHYCARDIA, UNSPECIFIED Assessment/Plan 43 y.o. female with PMH of asthma, PID, s/p tubal ligation, UTIs, HLD presented with c/o abd pain/n/v/d x 5 days as well as SOB/wheezing x 3 days. Vaginal bleeding noted today. Viral Gastroenteritis Asthma Exacerbation Vaginal bleeding -- Pt with no further vomiting/diarrhea episodes, abdominal pain improved, afebrile/without leukocytosis continue to monitor
--- NOTE | 2019-02-02 15:06 | PN ---
Progress Note (short form) - Note Progress Note: PULMONARY Breathing better. Less cough and wheezing. Vital Signs Period Temp Pulse Resp BP Sys/Avelar Pulse Ox Last 24 Hr 97.5 F-98.3 F 90-97 15-20 130-153/74-95 93-96 Gen: NAD at rest Heart: RRR Lung: scattered wheezes Abd: soft, nontender Ext: no edema CBC, BMP 02/01/19 06:55 02/01/19 06:55 Active Medications Acetaminophen (Tylenol -) 650 mg PO Q6H PRN PRN Reason: FEVER Last Admin: 02/01/19 15:57 Dose: 650 mg Albuterol Sulfate (Ventolin 0.083% Nebulizer Soln -) 1 amp NEB Q4H PRN PRN Reason: SHORT OF BREATH/WHEEZING Last Admin: 02/01/19 05:00 Dose: 1 amp Albuterol/Ipratropium (Duoneb -) 1 amp NEB RQID TODD Last Admin: 02/02/19 11:19 Dose: 1 amp Methylprednisolone Sodium Succinate (Solu-Medrol -) 60 mg IVPUSH Q8H-IV TODD Last Admin: 02/02/19 09:49 Dose: 60 mg Montelukast Sodium (Singulair -) 10 mg PO HS TODD Last Admin: 02/01/19 21:47 Dose: 10 mg Ondansetron HCl (Zofran Injection) 4 mg IVPB Q4H PRN PRN Reason: NAUSEA AND/OR VOMITING A/P Acute Asthma Exacerbation Acute Gastroenteritis Hyperlipidemia - can change steroids to PO prednisone 60mg BID - inhaled bronchodilators standing and PRN - singulair - DVT prophylaxis - pt will follow up with me as outpt Problem List - Problems (1) Asthma exacerbation Code(s): J45.901 - UNSPECIFIED ASTHMA WITH (ACUTE) EXACERBATION Qualifiers: Asthma severity: mild Asthma persistence: intermittent Qualified Code(s) : J45.21 - Mild intermittent asthma with (acute) exacerbation
[2019-02-02 15:45] VITALS: BP 160/97; PULSE 99; TEMP 98.2
--- NOTE | 2019-02-02 17:21 | DS ---
Physical Examination Vital Signs: Vital Signs Temperature 98.2 F 02/02/19 14:00 Pulse Rate 99 H 02/02/19 14:00 Respiratory Rate 20 02/02/19 14:00 Blood Pressure 160/97 02/02/19 14:00 O2 Sat by Pulse Oximetry (%) 93 L 02/02/19 09:00 Constitutional: Yes: No Distress HENT: Yes: Atraumatic Neck: Yes: Supple Cardiovascular: Yes: Regular Rate and Rhythm Respiratory: Yes: CTA Bilaterally Gastrointestinal: Yes: Normal Bowel Sounds Extremities: Yes: WNL Edema: No Wound/Incision: Yes: Unapproximated Neurological: Yes: Alert Labs: CBC, BMP 02/01/19 06:55 02/01/19 06:55 Discharge Summary Problems reviewed: Yes Reason For Visit: NAUSEA/VOMITING/DIARRHEA/ASTHMAW/ACUTE EXACERBATIO Condition: Stable - Instructions Diet, Activity, Other Instructions: follow up dr gonsalves...pts doctor PREDNISONE TAPER [id number] PATIENT HAS PREDNISONE AT HOME Referrals: Taisha Radford MD [Primary Care Provider] - Disposition: HOME - Home Medications Comprehensive Discharge Medication List: Ambulatory Orders Albuterol Sulfate Inhaler - [Ventolin HFA Inhaler -] 2 inh PO Q4H PRN 07/20/15 Tiotropium [place] [Spiriva] 1 inh PO DAILY 07/20/15 Omalizumab [Xolair -] 0 mg SQ Q30D 08/27/16 Montelukast Na [Singulair -] 10 mg PO HS #30 tablet 08/29/16 Fluticasone/Vilanterol [Breo Ellipta 100-25 Mcg INH] 1 each IH DAILY 10/26/17 Oxycodone HCl/Acetaminophen [Percocet 5-325 mg Tablet] 1 tab PO Q6H #20 tablet MDD 4 10/28/[address] gonsalves in 2-3 days
== END 2019-02-02 16:13 | disposition home or self-care (01) | DRG 249 ==
LOC: JER 13:42 → JERBED 20:06 → J8W 02-01 04:25
PROVIDERS: ADMIT Internal Medicine; ATTEND Internal Medicine
DX: K52.9 Noninfective gastroenteritis and colitis, unspecified (principal); J45.21 Mild intermittent asthma with (acute) exacerbation; R00.0 Tachycardia, unspecified; Z87.440 Personal history of urinary (tract) infections; K59.09 Other constipation; E78.5 Hyperlipidemia, unspecified; N93.9 Abnormal uterine and vaginal bleeding, unspecified
CPT/HCPCS: 36415; 71045-TC-FY; 76705-TC; 80053; 81003; 83605; 83690; 84703; 85025; 87804; 93005; 93010; 94640; 99285-25; J7030

== ENCOUNTER 2019-11-23 10:17 | Emergency (ER) | payer OTHER ==
[2019-11-23 10:23] VITALS: BMI 43.0
[2019-11-23] MEDS ORDERED: IBUPROFEN 600 MG TABLET (FP) PO ONE ×2 (10:53→11:23)
--- NOTE | 2019-11-23 11:06 | PDOC ---
History of Present Illness - General Chief Complaint: Chest Pain Stated Complaint: CHEST PAIN, Had COVID-19 in May Time Seen by Provider: 11/23/19 10:44 History Source: Patient Exam Limitations: No Limitations - History of Present Illness Initial Comments: 11/23/19 11:02 44-year-old female past medical history of asthma, COVID positive in May with 2 episodes of subsequent pneumonia treated with antibiotics presenting to the ED with 5 days of substernal right-sided chest pain without radiation. Patient states that the pain is constant with mild shortness of breath not exacerbated on exertion. Patient was seen yesterday at urgent care and was told that she had pleuritis. Patient follow-up in the ER today because symptoms have not resolved. Patient is not on control. Patient denies family history of AMI under the age of 5555 year old, sudden cardiac , history of DVT/PE/hypercoagulopathy or aneurysms. Pt otherwise denies: fevers, chills, syncope, lightheadedness, dizziness, headaches, neck pain, palpitations, back pain, abdominal pain, nausea, vomiting, diarrhea, constipation. Past History - Medical History Allergies/Adverse Reactions: Allergies Allergy/AdvReac Type Severity Reaction Status Date / Time shellfish derived Allergy SWELLING, Verified 11/23/19 10:22 DIFFICULTY BREATHING, ITCHING iv contrast Allergy Uncoded 11/23/19 10:22 Home Medications: Ambulatory Orders Albuterol Sulfate Inhaler - [Ventolin HFA Inhaler -] 2 inh PO Q4H PRN 07/20/15 Tiotropium [place] [Spiriva] 1 inh PO DAILY 07/20/15 Omalizumab [Xolair -] 0 mg SQ Q30D 08/27/16 Montelukast Na [Singulair -] 10 mg PO HS #30 tablet 08/29/16 Fluticasone/Vilanterol [Breo Ellipta 100-25 Mcg INH] 1 each IH DAILY 10/26/17 Oxycodone HCl/Acetaminophen [Percocet 5-325 mg Tablet] 1 tab PO Q6H #20 tablet MDD 4 10/28/17 Anemia: No Asthma: Yes Cancer: No Cardiac Disorders: No CVA: No COPD: No CHF: No Dementia: No Diabetes: No GI Disorders: No Disorders: No HTN: No Hypercholesterolemia: Yes Liver Disease: No Seizures: No Thyroid Disease: No Other medical history: COVID-19 MAY - Surgical History Abdominal Surgery: Yes Appendectomy: Yes Cardiac Surgery: No Cholecystectomy: No Lung Surgery: No Neurologic Surgery: No Orthopedic Surgery: No - Reproductive History Is Patient Now?: No - Immunization History Immunization Up to Date: Yes - Psycho-Social/Smoking History Smoking Status: Yes Smoking History: Never smoked Have you smoked in the past 12 months: No Number of Cigarettes Smoked Daily: 1 If you are a former smoker, when did you quit?: 07/2013 Cigars Per Day: 1 Information on smoking cessation initiated: No 'Breaking Loose' booklet given: 07/28/13 - Substance Abuse Hx (Audit-C & DAST Scrn) How often the patient has a drink containing alcohol: Never Score: In Men: 4 or > Positive; In Women: 3 or > Positive: 0 Screen Result (Pos requires Nsg. Audit-10AR): Negative In the last yr the pt used illegal drug/Rx for NonMed reason: No Score: Yes response is considered Positive: 0 Screen Result (Positive result requires Nsg. DAST-10): Negative *Physical Exam - Vital Signs Last Vital Signs Temp Pulse Resp BP Pulse Ox 97.9 F 89 19 134/75 99 11/23/19 10:20 11/23/19 10:20 11/23/19 10:20 11/23/19 10:20 11/23/19 10:20 - Physical Exam 11/23/19 11:03 Gen: AAOx 3, no acute distress, comfortable, no signs of respiratory distress HENT: atraumatic, normocephalic with no laceration or contusion. Nasal mucosa without erythema. Oropharynx without erythema or exudates. Mucous membranes moist. EYES: PERRL, EOM intact, conjunctiva pink NECK: supple; trachea midline; no JVD, no lymphadenopathy, or thyromegaly CV: RRR no murmurs, gallops, or rubs. CHEST: TTP to anterior chest wall, CTA b/l no wheezing, rales or rhonchi ABD: +BS/ND. no TTP; soft, no rebound, no guarding EXTREMITY: no cyanosis or erythema. 2+ dorsalis pedis, posterior tibial, and radial pulse. No pedal edema; no calf swelling or tenderness SKIN: no rash, warm and dry, no diaphoresis HEME: no purpura or ecchymosis NEURO: normal speech, CN II-XII intact, sensation intact, normal gait, no cerebellar deficits MS: 5/5 strength in all extremities, FROM intact in all extremities. ED Treatment Course - LABORATORY CBC & Chemistry Diagram: 11/23/19 11:00 11/23/19 11:00 - RADIOLOGY Radiology Studies Ordered: Category Date Time Status CHEST PA & LAT [RAD] Stat Radiology 11/23/19 10:52 Ordered Medical Decision Making - Medical Decision Making 11/23/19 11:04 44-year-old female with 5 days of chest pain Vital signs stable non-tachycardic no dyspnea normal O2 sat Will obtain chest x-ray labs to include troponin EKG at triage normal sinus rhythm at 80 bpm with flipped T's in II Low suspicion of PE as vital signs and PERC criteria are negative however due to patient's recent diagnosis of COVID-19 will obtain d-dimer Will reassess based on results Chest XR WNL with no interval change since June 2019 Labs show white blood cell count 11.4 H/H 14.4/43.1 Chemistry within normal limits U frag negative D-dimer elevated to 529 Will obtain CTA chest to rule out PE however patient is allergic to IV contrast therefore will be premedicated with Solu-Medrol and Benadryl. 4 hours will be waited before the scan is initiated and and the patient will be monitored. Patient signed out to a provider [place] pending CTA results Discharge - Discharge Information Problems reviewed: Yes Clinical Impression/Diagnosis: Chest pain Qualifiers: Chest pain type: chest pain on breathing Qualified Code(s): R07.1 - Chest pain on breathing; R07.81 - Pleurodynia - Follow up/Referral Referrals: Taisha Radford MD [Primary Care Provider] - - Patient Discharge Instructions - Post Discharge Activity
[2019-11-23 12:04] LABS: EOS % 0.9 % (0-4.5); HEMATOCRIT 43.1 % (32.4-45.2); HEMOGLOBIN 14.4 GM/dL (10.7-15.3); LYMPH % 27.7 % (8-40); MCH 29.7 pg (25.7-33.7); MCHC 33.4 g/dl (32.0-36.0); MEAN CELL VOLUME 88.9 fl (80-96); MEAN PLT VOLUME 8.3 fl (7.5-11.1); MONO % 7.2 % (3.8-10.2); NEUT % 63.2 % (42.8-82.8); PLATELET COUNT 315 K/MM3 (134-434); RBC 4.85 M/mm3 (3.60-5.2); RDW 15.2 % (11.6-15.6); WHITE BLOOD COUNT 11.4 K/mm3 (4.0-10.0)
[2019-11-23 12:33] LABS: ALBUMIN 3.4 g/dl (3.4-5.0); ALK PHOS 97 U/L (45-117); ANION GAP 6 MMOL/L (8-16); BILIRUBIN,TOTAL 0.3 mg/dL (0.2-1); CALCIUM 8.8 mg/dL (8.5-10.1); CHLORIDE 107 mmol/L (98-107); CO2 27 mmol/L (21-32); CREATININE 0.7 mg/dL (0.55-1.3); GLUCOSE,RANDOM 87 mg/dL (74-106); POTASSIUM 4.4 mmol/L (3.5-5.1); SGOT/AST 15 U/L (15-37); SGPT/ALT 22 U/L (13-61); SODIUM 139 mmol/L (136-145); TOT PROT 7.5 g/dl (6.4-8.2)
[2019-11-23] MEDS ORDERED: methylPREDNISolone NA SUCC 125 MG/2 ML VIAL IVPUSH ONE (13:12)
[2019-11-23] MEDS ORDERED: methylPREDNISolone NA SUCC 125 MG/2 ML VIAL ONE (13:33)
--- NOTE | 2019-11-23 16:25 | PDOC ---
*Physical Exam - Vital Signs Last Vital Signs Temp Pulse Resp BP Pulse Ox 97.9 F 88 18 124/81 98 11/23/19 10:20 11/23/19 14:20 11/23/19 14:20 11/23/19 14:20 11/23/19 14:20 - Physical Exam General Appearance: Yes: Appropriately Dressed. No: Apparent Distress HEENT: positive: SILV[place], Normal ENT Inspection, Pharynx Normal Respiratory/Chest: positive: Lungs Clear, Normal Breath Sounds. negative: Respiratory Distress, Accessory Muscle Use Cardiovascular: positive: Regular Rhythm, Regular Rate. negative: S1, S2 Gastrointestinal/Abdominal: positive: Normal Bowel Sounds, Soft. negative: Tender ED Treatment Course - LABORATORY CBC & Chemistry Diagram: 11/23/19 11:00 11/23/19 11:00 - ADDITIONAL ORDERS Additional order review: Laboratory Results 11/23/19 11/23/19 11/23/19 12:15 11:00 10:20 D-Dimer 529 H Sodium 139 Potassium 4.4 Chloride 107 Carbon Dioxide 27 Anion Gap 6 L BUN 10.0 Creatinine 0.7 Est GFR (CKD-EPI)AfAm 123.86 Est GFR (CKD-EPI)NonAf 106.87 Random Glucose 87 Calcium 8.8 Total Bilirubin 0.3 AST 15 ALT 22 Alkaline Phosphatase 97 Creatine Kinase 66 Troponin I < 0.02 Total Protein 7.5 Albumin 3.4 Urine HCG, Qual Negative 11/23/19 11:00 RBC 4.85 MCV 88.9 MCHC 33.4 RDW 15.2 MPV 8.3 Neutrophils % 63.2 D Lymphocytes % 27.7 D Monocytes % 7.2 D Eosinophils % 0.9 D Basophils % 1.0 D - Medications Given in the ED: ED Medications Discontinued Medications Generic Name Dose Route Start Last Admin Trade Name Freq PRN Reason Stop Dose Admin Diphenhydramine HCl 50 mg 11/23/19 13:13 11/23/19 14:00 Benadryl Injection - IVPUSH 11/23/19 13:14 50 mg ONCE ONE Administration Ibuprofen 600 mg 11/23/19 10:53 11/23/19 11:20 Motrin - PO 11/23/19 10:54 600 mg ONCE ONE Administration Methylprednisolone Sodium Succinate 125 mg 11/23/19 13:12 11/23/19 13:40 Solu-Medrol - IVPUSH 11/23/19 13:13 125 mg ONCE ONE Administration ED Progress Note - Progress Note Progress Note: 11/23/19 16:20 Received signout from CELIA Bangura. Briefly this a 44-year-old woman with history of asthma, COVID 06/05 with subsequent pneumonia with 5 days of substernal and right-sided chest pain. Labs notable for elevated d-dimer at 529 and mildly elevated WBC at 11,400. Patient has allergy to IV contrast and is received a CT angiogram for the elevated d-dimer and chest pain. Patient was premedicated with Benadryl and Solu-Medrol prior to the exam is currently pending results. Medical Decision Making - Medical Decision Making 11/23/19 16:25 Laboratory Tests 11/23/19 11/23/19 11/23/19 10: 11:00 11:00 WBC 11.4 H RBC 4.85 Hgb 14.4 Hct 43.1 MCV 88.9 MCH 29.7 MCHC 33.4 RDW 15.2 Plt Count 315 MPV 8.3 Absolute Neuts (auto) 7.2 Neutrophils % 63.2 D Lymphocytes % 27.7 D Monocytes % 7.2 D Eosinophils % 0.9 D Basophils % 1.0 D Nucleated RBC % 0 D-Dimer Sodium 139 Potassium 4.4 Chloride 107 Carbon Dioxide 27 Anion Gap 6 L BUN 10.0 Creatinine 0.7 Est GFR (CKD-EPI)AfAm 123.86 Est GFR (CKD-EPI)NonAf 106.87 Random Glucose 87 Calcium 8.8 Total Bilirubin 0.3 AST 15 ALT 22 Alkaline Phosphatase 97 Creatine Kinase 66 Troponin I < 0.02 Total Protein 7.5 Albumin 3.4 Urine HCG, Qual Negative 11/23/19 12:15 WBC RBC Hgb Hct MCV MCH MCHC RDW Plt Count MPV Absolute Neuts (auto) Neutrophils % Lymphocytes % Monocytes % Eosinophils % Basophils % Nucleated RBC % D-Dimer 529 H Sodium Potassium Chloride Carbon Dioxide Anion Gap BUN Creatinine Est GFR (CKD-EPI)AfAm Est GFR (CKD-EPI)NonAf Random Glucose Calcium Total Bilirubin AST ALT Alkaline Phosphatase Creatine Kinase Troponin I Total Protein Albumin Urine HCG, Qual CTA as read by Dr. Busch: No central pulmonary embolus is demonstrated. Assessment of the segmental and subsegmental branches of the significantly limited due to suboptimal contrast phase timing. No evidence of right heart strain or dilatation of the pulmonary arterial trunk borderline prominent pulmonary vascularity in the setting of cardiomegaly may represent venous congestion. Recommend clinical correlation. Bibasilar dependent atelectasis. Discharge home to follow-up with primary doctor and cardiology. I discussed the physical exam findings, ancillary test results and final diagnoses with the patient. I answered all of the patient's questions. The patient was satisfied with the care received and felt comfortable with the discharge plan and treatment plan. The patient will call their primary care physician within 24 hours to arrange follow-up and will return to the Emergency Department with any new, persistent or worsening symptoms. Portions of this note have been documented using voice recognition software. As a result, errors may occur in the early childhood specialist process. Effort has been made to correct all grammatical and early childhood specialist error, but some may have been missed which may produce sporadic inaccurate early childhood specialist or nonsensical phrases. Discharge - Discharge Information Problems reviewed: Yes Clinical Impression/Diagnosis: Chest pain Qualifiers: Chest pain type: chest pain on breathing Qualified Code(s): R07.1 - Chest pain on breathing Condition: Stable Disposition: HOME - Admission No - Follow up/Referral Referrals: Taisha Radford MD [Primary Care Provider] - Luis Espinoza MD [Staff Physician] - - Patient Discharge Instructions Patient Printed Discharge Instructions: DI for Chest Pain Additional Instructions: Your evaluation is incomplete please follow-up with your primary doctor. Use incentive spirometer 10 times every hour while awake. Support that you follow-up with your associate director data & analytics. Return to emergency department for any new or worsening symptoms. Thank you very much for choosing us provide your emergent healthcare needs. - Post Discharge Activity Work/Back to School Note: Back to Work
[2019-11-23 17:03] VITALS: BP 137/88; PULSE 86; TEMP 98.6
--- NOTE | 2019-11-24 13:24 | EKG ---
Test Reason : Blood Pressure : / mmHG Vent. Rate : 080 BPM Atrial Rate : 080 BPM P-R Int : 132 ms QRS Dur : 086 ms QT Int : 358 ms P-R-T Axes : 137 133 164 degrees QTc Int : 412 ms SUSPECT ARM LEAD REVERSAL, INTERPRETATION ASSUMES NO REVERSAL UNUSUAL P AXIS, POSSIBLE ECTOPIC ATRIAL RHYTHM LATERAL INFARCT , AGE UNDETERMINED INFERIOR INFARCT , AGE UNDETERMINED ABNORMAL ECG WHEN COMPARED WITH ECG OF 31-JAN-2019 13:56, SIGNIFICANT CHANGES HAVE OCCURRED Confirmed by MUSTAPHA LLOYD MD ([id number]) on 11/24/2019 1:24:38 PM Referred By: Confirmed By:MUSTAPHA LLOYD MD
== END 2019-11-23 16:45 | disposition home or self-care (01) ==
LOC: JER 10:17
PROC: 3E033GC Introduction of Other Therapeutic Substance into Peripheral Vein, Percutaneous Approach (ICD-10-PCS; principal; 2019-11-23)
DX: R07.1 Chest pain on breathing (principal)
CPT/HCPCS: 36415; 71046-TC-FY; 71275-TC; 80053; 82550; 84484; 84703; 85025; 85379; 93005; 93010; 99285-25

== ENCOUNTER 2020-04-16 14:07 | Emergency (ER) | payer OTHER ==
[2020-04-16 14:39] VITALS: BP 127/70; PULSE 78; TEMP 98.1; BMI 39.0
[2020-04-16 17:21] LABS: BASO % 0.9 % (0-2.0); EOS % 1.2 % (0-4.5); HEMATOCRIT 43.4 % (32.4-45.2); HEMOGLOBIN 14.4 GM/dL (10.7-15.3); LYMPH % 24.2 % (8-40); MCH 29.9 pg (25.7-33.7); MCHC 33.2 g/dl (32.0-36.0); MEAN CELL VOLUME 89.8 fl (80-96); MONO % 6.3 % (3.8-10.2); NEUT % 67.4 % (42.8-82.8); PLATELET COUNT 360 K/MM3 (134-434); RBC 4.83 M/mm3 (3.60-5.2); RDW 13.7 % (11.6-15.6); WHITE BLOOD COUNT 10.8 K/mm3 (4.0-10.0)
[2020-04-16 17:51] LABS: POTASSIUM 3.7 mmol/L (3.5-5.1)
[2020-04-16 17:52] LABS: CALCIUM 9.6 mg/dL (8.5-10.1)
[2020-04-16 17:53] LABS: ALBUMIN 3.5 g/dl (3.4-5.0)
[2020-04-16 17:56] LABS: CREATININE 0.8 mg/dL (0.55-1.3)
[2020-04-16 17:58] LABS: BILIRUBIN,TOTAL 0.2 mg/dL (0.2-1); TOT PROT 7.6 g/dl (6.4-8.2)
== END 2020-04-16 21:04 | disposition home or self-care (01) ==
LOC: JER 14:07
DX: J06.9 Acute upper respiratory infection, unspecified (principal); Z11.52 Encounter for screening for COVID-19
CPT/HCPCS: 36415; 71046-TC-FY; 71250-TC; 80053; 85025; 85379; 93005; 93010; 99285-25; C9803; U0003

== ENCOUNTER 2020-06-29 12:00 | Emergency (ER) | payer OTHER ==
[2020-06-29 12:17] VITALS: BMI 41.0
[2020-06-29] MEDS ORDERED: IPRATROPIUM BR 0.02% 0.5 MG/2.5 ML VIAL.NEB. NEB ONE ×2 (12:44→13:58)
[2020-06-29] MEDS ORDERED: ALBUTEROL SO4 0.083% IH SOL 2.5 MG/3 ML VIAL.NEB. NEB SCH (12:45)
[2020-06-29] MEDS ORDERED: methylPREDNISolone NA SUCC 125 MG/2 ML VIAL IVPUSH ONE (12:46)
[2020-06-29] MEDS ORDERED: methylPREDNISolone NA SUCC 125 MG/2 ML VIAL ONE (13:59)
[2020-06-29 14:43] LABS: BASO % 1.3 % (0-2.0); EOS % 1.8 % (0-4.5); HEMATOCRIT 39.5 % (32.4-45.2); HEMOGLOBIN 13.3 GM/dL (10.7-15.3); LYMPH % 24.9 % (8-40); MCH 30.7 pg (25.7-33.7); MCHC 33.8 g/dl (32.0-36.0); MEAN CELL VOLUME 90.9 fl (80-96); MEAN PLT VOLUME 7.8 fl (7.5-11.1); MONO % 11.5 % (3.8-10.2); NEUT % 60.5 % (42.8-82.8); PLATELET COUNT 363 K/MM3 (134-434); RBC 4.34 M/mm3 (3.60-5.2); WHITE BLOOD COUNT 7.6 K/mm3 (4.0-10.0)
[2020-06-29 15:08] LABS: CALCIUM 8.9 mg/dL (8.5-10.1)
[2020-06-29 15:09] LABS: ALBUMIN 3.4 g/dl (3.4-5.0); BLOOD UREA NITROGEN 9.2 mg/dL (7-18)
[2020-06-29 15:12] LABS: CREATININE 0.6 mg/dL (0.55-1.3)
[2020-06-29 15:13] LABS: BILIRUBIN,TOTAL 0.3 mg/dL (0.2-1); TOT PROT 7.4 g/dl (6.4-8.2)
[2020-06-29 17:14] VITALS: BP 149/78; PULSE 85; TEMP 98.9
== END 2020-06-29 17:13 | disposition home or self-care (01) ==
LOC: JER 12:00
PROC: 3E0F7GC Introduction of Other Therapeutic Substance into Respiratory Tract, Via Natural or Artificial Opening (ICD-10-PCS; principal; 2020-06-29)
PROC: 3E033GC Introduction of Other Therapeutic Substance into Peripheral Vein, Percutaneous Approach (ICD-10-PCS; 2020-06-29)
DX: J45.901 Unspecified asthma with (acute) exacerbation (principal)
CPT/HCPCS: 36415; 71046-TC-FY; 80053; 85025; 99284-25

== ENCOUNTER 2021-06-04 14:23 | Emergency (ER) | payer OTHER ==
[2021-06-04 14:33] VITALS: TEMP 98.9; BMI 39.0
[2021-06-04] MEDS ORDERED: DEXAMETHASONE SOD PHOSPHATE 10 MG/1 ML VIAL IVPUSH ONE (15:15)
[2021-06-04] MEDS ORDERED: ALBUTEROL SO4 2.5/IPRATROPIUM 0.5 INH SOL 3 ML VIAL.NEB. NEB ONE ×3 (16:07→18:27)
[2021-06-04] MEDS ORDERED: DEXAMETHASONE SOD PHOSPHATE 10 MG/1 ML VIAL ONE (16:08)
[2021-06-04] MEDS: ALBUTEROL SO4 2.5/IPRATROPIUM 0.5 INH SOL 3 ML VIAL.NEB. NEB SCH ×2 (16:22→17:58)
[2021-06-04] MEDS ORDERED: ACETAMINOPHEN 500 MG TABLET (FP) PO ONE (16:33)
[2021-06-04 16:45] LABS: BASO % 0.4 % (0-2.0); EOS % 0.1 % (0-4.5); HEMATOCRIT 41.6 % (32.4-45.2); LYMPH % 4.3 % (8-40); MCH 29.9 pg (25.7-33.7); MCHC 33.5 g/dl (32.0-36.0); MEAN CELL VOLUME 89.2 fl (80-96); MEAN PLT VOLUME 7.8 fl (7.5-11.1); MONO % 8.2 % (3.8-10.2); PLATELET COUNT 313 10^3/uL (134-434); RBC 4.67 M/mm3 (3.60-5.2); RDW 14.2 % (11.6-15.6); WHITE BLOOD COUNT 12.9 K/mm3 (4.0-10.0)
[2021-06-04 17:06] LABS: ALBUMIN 3.7 g/dl (3.4-5.0); BLOOD UREA NITROGEN 5.9 mg/dL (7-18)
[2021-06-04 17:09] LABS: CREATININE 0.7 mg/dL (0.55-1.3)
[2021-06-04 17:10] LABS: BILIRUBIN,TOTAL 0.3 mg/dL (0.2-1); TOT PROT 7.4 g/dl (6.4-8.2)
[2021-06-04] MEDS ORDERED: ACETAMINOPHEN 325 MG TABLET (FP) ONE (17:52)
[2021-06-04] MEDS ORDERED: KETOROLAC TROMETHAMINE 30 MG/1 ML VIAL IM ONE (20:35)
[2021-06-04] MEDS ORDERED: KETOROLAC TROMETHAMINE 30 MG/1 ML VIAL ONE (21:16)
[2021-06-04 21:33] VITALS: BP 144/92; PULSE 105
== END 2021-06-04 21:33 | disposition home or self-care (01) ==
LOC: JER 14:23
PROC: 3E0F7GC Introduction of Other Therapeutic Substance into Respiratory Tract, Via Natural or Artificial Opening (ICD-10-PCS; principal; 2021-06-04)
PROC: 3E033GC Introduction of Other Therapeutic Substance into Peripheral Vein, Percutaneous Approach (ICD-10-PCS; 2021-06-04)
PROC: 3E0233Z Introduction of Anti-inflammatory into Muscle, Percutaneous Approach (ICD-10-PCS; 2021-06-04)
DX: J45.901 Unspecified asthma with (acute) exacerbation (principal)
CPT/HCPCS: 36415; 71046-TC-FY; 80053; 85025; 93005; 93010; 99285-25; C9803-CS; J1100; U0003; U0005

== ENCOUNTER 2021-11-11 05:30 | Emergency (ER) | payer OTHER ==
[2021-11-11 05:42] VITALS: BP 114/58; PULSE 85; RESP 18; TEMP 98.1; BMI 33.1
[2021-11-11] MEDS ORDERED: ACETAMINOPHEN 1000 MG/100 ML BAG IVPB ONE (07:06)
[2021-11-11] MEDS ORDERED: METOCLOPRAMIDE HCL INJECTION 10 MG/2 ML VIAL IVPB ONE (07:06)
[2021-11-11] MEDS ORDERED: LIDOCAINE 5% TOPICAL PATCH TP ONE (07:08)
[2021-11-11] MEDS ORDERED: METOCLOPRAMIDE HCL INJECTION 10 MG/2 ML VIAL ONE (07:53)
[2021-11-11] MEDS ORDERED: LIDOCAINE 5% TOPICAL PATCH ONE (07:53)
[2021-11-11] MEDS ORDERED: ACETAMINOPHEN INJECTION 100 ML IVPB ONE (07:53)
[2021-11-11 08:48] LABS: BASO % 0.4 % (0-2.0); EOS % 0.4 % (0-4.5); HEMATOCRIT 39.6 % (32.4-45.2); HEMOGLOBIN 13.3 GM/dL (10.7-15.3); LYMPH % 17.6 % (8-40); MCHC 33.6 g/dl (32.0-36.0); MEAN CELL VOLUME 89.2 fl (80-96); NEUT % 72.6 % (42.8-82.8); PLATELET COUNT 319 10^3/uL (134-434); RBC 4.44 M/mm3 (3.60-5.2); RDW 13.8 % (11.6-15.6); WHITE BLOOD COUNT 13.9 K/mm3 (4.0-10.0)
[2021-11-11 09:04] LABS: CHLORIDE 108 mmol/L (98-107); SODIUM 142 mmol/L (136-145)
[2021-11-11 09:06] LABS: BLOOD UREA NITROGEN 7.7 mg/dL (7-18)
[2021-11-11 09:07] LABS: ALBUMIN 3.3 g/dl (3.4-5.0); GLUCOSE,RANDOM 95 mg/dL (74-106)
[2021-11-11 09:10] LABS: CREATININE 0.6 mg/dL (0.55-1.3); SGOT/AST 10 U/L (15-37); SGPT/ALT 17 U/L (13-61)
[2021-11-11 09:12] LABS: BILIRUBIN,TOTAL 0.6 mg/dL (0.2-1); TOT PROT 6.7 g/dl (6.4-8.2)
[2021-11-11 09:13] LABS: ALK PHOS 76 U/L (45-117)
[2021-11-11 09:14] LABS: ANION GAP 10 MMOL/L (8-16); CO2 23 mmol/L (21-32)
[2021-11-11] MEDS ORDERED: KETOROLAC TROMETHAMINE 30 MG/1 ML VIAL IVPUSH ONE (09:53)
[2021-11-11] MEDS ORDERED: DEXAMETHASONE SOD PHOSPHATE 10 MG/1 ML VIAL IVPUSH ONE (09:55)
[2021-11-11] MEDS ORDERED: METHOCARBAMOL 500 MG TABLET PO ONE (10:15)
[2021-11-11] MEDS ORDERED: MAGNESIUM SULF 50% (8.12 MEQ/2 ML-1 GM VIAL) IVPB ONE (10:16)
[2021-11-11] MEDS ORDERED: LIDOCAINE PATCH REMOVAL MC SCH (22:00)
== END 2021-11-11 11:00 | disposition home or self-care (01) ==
LOC: JER 05:30
PROC: 3E0333Z Introduction of Anti-inflammatory into Peripheral Vein, Percutaneous Approach (ICD-10-PCS; principal; 2021-11-11)
PROC: 3E0333Z Introduction of Anti-inflammatory into Peripheral Vein, Percutaneous Approach (ICD-10-PCS; 2021-11-11)
PROC: 3E0333Z Introduction of Anti-inflammatory into Peripheral Vein, Percutaneous Approach (ICD-10-PCS; 2021-11-11)
PROC: 3E033GC Introduction of Other Therapeutic Substance into Peripheral Vein, Percutaneous Approach (ICD-10-PCS; 2021-11-11)
DX: R51.9 Headache, unspecified (principal)
CPT/HCPCS: 36415; 70450-TC; 71046-TC-FY; 80053; 82550; 83735; 84484; 84703; 85025; 93005; 93010; 99285-25; C9803-CS; U0003; U0005

== ENCOUNTER 2024-07-02 10:42 | Emergency (ER) | payer OTHER ==
[2024-07-02 10:53] VITALS: TEMP 98.2; BMI 37.0
[2024-07-02] MEDS ORDERED: FAMOTIDINE 20 MG/50 ML IVPB 20 MG/50 ML MG IVPB ONE (11:48)
[2024-07-02] MEDS ORDERED: MAG HYDROX/AL HYDROX/SIMETH 30 ML UNIT-DOSE CUP ONE (11:48)
[2024-07-02] MEDS ORDERED: LIDOCAINE VISCOUS 2% ORAL/TOP 15 ML UNIT-DOSE CUP ONE (11:55)
[2024-07-02] MEDS: FAMOTIDINE 20 MG/50 ML IVPB 20 MG/50 ML MG IVPB ONE (12:04)
[2024-07-02] MEDS: MAG HYDROX/AL HYDROX/SIMETH 30 ML UNIT-DOSE CUP PO ONE (12:04)
[2024-07-02] MEDS: LIDOCAINE VISCOUS 2% ORAL/TOP 15 ML UNIT-DOSE CUP MM ONE (12:04)
[2024-07-02] MEDS: SODIUM CHLORIDE 0.9% 500 ML INFUS.BAG IV ONE (12:04)
[2024-07-02 12:26] LABS: ABSOLUTE IMMATURE GRANULOCYTES 0.03 x10^3/uL (0.0-0.031); BASOPHILS # 0.09 x10^3/uL (0.01-0.08); EOSINOPHIL % 0.9 % (0.7-5.8); EOSINOPHILS # 0.08 x10^3/uL (0.04-0.36); HEMATOCRIT 40.4 % (34.1-44.9); HEMOGLOBIN 13.5 g/dL (11.2-15.7); MCHC 33.4 g/dl (32.2-35.5); MEAN CELL VOLUME 90.6 fl (79.4-94.8); MEAN PLT VOLUME 9.4 fl (9.4-12.3); MONOCYTE # 0.75 x10^3/uL (0.24-0.86); MONOCYTE % 8.3 % (4.7-12.5); PLATELET COUNT 368 x10^3/uL (182-369); RDW 12.9 % (12.2-17.1)
[2024-07-02 12:46] LABS: POTASSIUM 4.6 mmol/L (3.5-5.1)
[2024-07-02 12:48] LABS: ALBUMIN 3.3 g/dl (3.4-5.0); BLOOD UREA NITROGEN 10.2 mg/dL (7-18); CALCIUM 9.4 mg/dL (8.5-10.1)
[2024-07-02 12:52] LABS: CREATININE 0.7 mg/dL (0.55-1.3)
[2024-07-02 12:53] LABS: BILIRUBIN,TOTAL 0.3 mg/dL (0.2-1); TOT PROT 6.9 g/dl (6.4-8.2)
[2024-07-02 13:31] VITALS: BP 156/92; PULSE 79; RESP 15
[2024-07-02 19:04] LABS: HIV INTERPRETATION NEGATIVE (NEGATIVE)
[2024-07-02 19:05] LABS: HCV DIAGNOSTIC IN-HOUSE W/RFLX NON-REACTIVE (NONREACTIVE)
== END 2024-07-02 13:31 | disposition home or self-care (01) ==
LOC: JER 10:42
PROC: 3E033GC Introduction of Other Therapeutic Substance into Peripheral Vein, Percutaneous Approach (ICD-10-PCS; principal; 2024-07-02)
DX: K21.9 Gastro-esophageal reflux disease without esophagitis (principal); K59.00 Constipation, unspecified; R10.10 Upper abdominal pain, unspecified; R10.13 Epigastric pain; K62.5 Hemorrhage of anus and rectum; R14.0 Abdominal distension (gaseous); R53.83 Other fatigue
CPT/HCPCS: 36415; 80053; 83690; 85025; 86803; 87389; 99284-25